=== PATIENT | male | born 1930 | race Caucasian/White ===

== ENCOUNTER → 2016-12-30 | Outpatient (CLI) | payer MEDICARE, OTHER ==
[2016-12-30 10:27] LABS: ABSOLUTE EOSINOPHILS # (AUTO) 0.3 10^3/uL (0.0-0.6); ABSOLUTE LYMPHOCYTES (AUTO) 1.7 10^3/uL (0.5-4.7); ABSOLUTE MONOCYTES (AUTO) 0.6 10^3/uL (0.1-1.4); ABSOLUTE NEUT (AUTO) 6.4 10^3/uL (1.7-8.2); BASOPHILS % (AUTO) 0.5 % (0-2); EOSINOPHILS % (AUTO) 3.4 % (0-6); HEMATOCRIT 38.7 % (37.9-51.0); HEMOGLOBIN 12.8 g/dL (13.5-17.0); HGB HCT DIFFERENCE -0.3; LYMPHOCYTES % (AUTO) 19.2 % (13-45); MEAN CORPUSCULAR HEMOGLOBIN 31.3 pg (27.0-33.4); MEAN CORPUSCULAR HGB CONC 33.1 g/dL (32.0-36.0); MEAN CORPUSCULAR VOLUME 95 fl (80-97); RED BLOOD COUNT 4.09 10^6/uL (4.35-5.55); RED CELL DISTRIBUTION WIDTH 14.8 % (11.5-14.0); SEGMENTED NEUTROPHILS % (AUTO) 69.9 % (42-78); WHITE BLOOD COUNT 9.1 10^3/uL (4.0-10.5)
[2016-12-30 10:50] LABS: ALANINE AMINOTRANSFERASE 37 U/L (21-72); ALBUMIN 4.3 g/dL (3.5-5.0); ALKALINE PHOSPHATASE 55 U/L (38-126); ANION GAP 13 (5-19); ASPARTATE AMINO TRANSFERASE 28 U/L (17-59); BILIRUBIN,DIRECT 0.4 mg/dL (0.0-0.4); BILIRUBIN,TOTAL 0.5 mg/dL (0.2-1.3); BLOOD UREA NITROGEN 33 mg/dL (7-20); CALCIUM 10.2 mg/dL (8.4-10.2); CARBON DIOXIDE 29 mmol/L (22-30); CHLORIDE 100 mmol/L (98-107); CHOLESTEROL 129.44 mg/dL (0-200); CREATININE RESULT 1.38 mg/dL (0.52-1.25); Direct HDL 28 mg/dL (>40); GLUCOSE 109 mg/dL (75-110); POTASSIUM 4.4 mmol/L (3.6-5.0); SODIUM 142.3 mmol/L (137-145); TOTAL PROTEIN 6.7 g/dL (6.3-8.2); TRIGLYCERIDES 133 mg/dL (<150)
[2016-12-30 11:01] LABS: DIRECT LDL 81 mg/dL (<100)
== END ==
LOC: OD 09:02
PROVIDERS: ATTEND Internal Medicine
DX: I10 Essential (primary) hypertension (principal); E78.5 Hyperlipidemia, unspecified; K21.9 Gastro-esophageal reflux disease without esophagitis; M19.90 Unspecified osteoarthritis, unspecified site
CPT/HCPCS: 36415; 80053; 80061; 84443; 85025

== ENCOUNTER → 2017-05-28 | Outpatient (CLI) | payer MEDICARE, OTHER ==
--- NOTE | 2017-05-28 16:11 | RADIOLOGY REPORT (SQ) ---
EXAM DESCRIPTION: CT CHEST WITHOUT COMPLETED DATE/TIME: 05/28/2017 1:21 pm REASON FOR STUDY: COUGH R05 COUGH COMPARISON: 10/24/2012 TECHNIQUE: CT scan performed of the chest without intravenous contrast. Images reviewed with lung, soft tissue and bone windows. Reconstructed coronal and sagittal MPR images reviewed. All images st ored on PACS. All CT scanners at this facility use dose modulation, iterative reconstruction, and/or weight based d osing when appropriate to reduce radiation dose to as low as reasonably achievable (ALARA). [facility]: Dose Right [facility]: CareDose [facility]: Dose Right [facility]: Teradose 4D [facility]: Smart EverPresent RADIATION DOSE: CT Rad equipment meets quality standard of care and radiation dose reduction techniq ues were employed. CTDIvol: 16.0 mGy. DLP: 600 mGy-cm. mGy. LIMITATIONS: No technical limitations. FINDINGS: LUNGS AND PLEURA: Scarring associated with old left thoracotomy. Subsegmental honeycombin g in the middle lobe. No effusions. HILAR AND MEDIASTINAL STRUCTURES: No identified masses or abnormal nodes. No obvious aneurysm. HEART AND VASCULAR STRUCTURES: No aneurysm. No pericardial effusion. UPPER ABDOMEN: No significant findings. Limited exam. THYROID AND OTHER SOFT TISSUES: No masses. No adenopathy. BONES: No significant finding. HARDWARE: None in the chest. OTHER: No other significant findings. IMPRESSION: No acute findings in the chest. TECHNICAL DOCUMENTATION: JOB ID: [id number] Quality ID # [id number]: Final reports with documentation of one or more dose reduction techniques (e.g., Au tomated exposure control, adjustment of the mA and/or kV according to patient size, use of iterative reconstruction technique) 2010 [employer]- All Rights Reserved
== END ==
LOC: RAD 13:00
PROVIDERS: ATTEND Internal Medicine Pulmonary Disease
DX: R05 Cough (principal)
CPT/HCPCS: 71250

== ENCOUNTER → 2017-07-25 | Outpatient (CLI) | payer MEDICARE, OTHER ==
[2017-07-25 12:59] LABS: ABSOLUTE BASOPHILS # (AUTO) 0.1 10^3/uL (0.0-0.2); ABSOLUTE EOSINOPHILS # (AUTO) 0.3 10^3/uL (0.0-0.6); ABSOLUTE LYMPHOCYTES (AUTO) 1.2 10^3/uL (0.5-4.7); ABSOLUTE MONOCYTES (AUTO) 0.7 10^3/uL (0.1-1.4); ABSOLUTE NEUT (AUTO) 8.9 10^3/uL (1.7-8.2); ALANINE AMINOTRANSFERASE 30 U/L (21-72); ALKALINE PHOSPHATASE 54 U/L (38-126); ANION GAP 17 (5-19); ASPARTATE AMINO TRANSFERASE 18 U/L (17-59); BASOPHILS % (AUTO) 0.8 % (0-2); BILIRUBIN,DIRECT 0.3 mg/dL (0.0-0.4); BILIRUBIN,TOTAL 0.5 mg/dL (0.2-1.3); BLOOD UREA NITROGEN 26 mg/dL (7-20); CALCIUM 10.4 mg/dL (8.4-10.2); CARBON DIOXIDE 26 mmol/L (22-30); CHLORIDE 100 mmol/L (98-107); CHOLESTEROL 123.77 mg/dL (0-200); GLUCOSE 117 mg/dL (75-110); HEMATOCRIT 35.8 % (37.9-51.0); HEMOGLOBIN 11.9 g/dL (13.5-17.0); LYMPHOCYTES % (AUTO) 10.5 % (13-45); MEAN CORPUSCULAR HEMOGLOBIN 30.4 pg (27.0-33.4); MEAN CORPUSCULAR HGB CONC 33.2 g/dL (32.0-36.0); MEAN CORPUSCULAR VOLUME 91 fl (80-97); MONOCYTES % (AUTO) 6.4 % (3-13); PLATELET COUNT 235 10^3/uL (150-450); POTASSIUM 4.4 mmol/L (3.6-5.0); RED BLOOD COUNT 3.91 10^6/uL (4.35-5.55); RED CELL DISTRIBUTION WIDTH 14.5 % (11.5-14.0); SEGMENTED NEUTROPHILS % (AUTO) 79.3 % (42-78); SODIUM 142.5 mmol/L (137-145); TOTAL CELLS COUNTED % (AUTO) 100 %; TOTAL PROTEIN 6.3 g/dL (6.3-8.2); TRIGLYCERIDES 97 mg/dL (<150); URIC ACID 9.3 mg/dL (3.5-8.5); WHITE BLOOD COUNT 11.2 10^3/uL (4.0-10.5)
[2017-07-25 13:03] LABS: DIRECT LDL 77 mg/dL (<100)
--- NOTE | 2017-07-25 13:39 | RADIOLOGY REPORT (SQ) ---
EXAM DESCRIPTION: CHEST PA/LATERAL COMPLETED DATE/TIME: 07/25/2017 12:30 pm REASON FOR STUDY: COUGH COMPARISON: CT chest dated 05/28/2017. Chest x-ray dated 07/06/2017. EXAM PARAMETERS: NUMBER OF VIEWS: two views TECHNIQUE: Digital Frontal and Lateral radiographic views of the chest acquired. RADIATION DOSE: NA LIMITATIONS: none FINDINGS: LUNGS AND PLEURA: Chronic interstitial changes. No focal infiltrates, masses or pneumotho rax. No pleural effusion. MEDIASTINUM AND HILAR STRUCTURES: No masses or contour abnormalities. HEART AND VASCULAR STRUCTURES: Heart normal size. No evidence for failure. BONES: No acute findings. Degenerative changes in the spine. HARDWARE: None in the chest. OTHER: No other significant finding. IMPRESSION: NO ACUTE RADIOGRAPHIC FINDING IN THE CHEST. TECHNICAL DOCUMENTATION: JOB ID: [id number] [employer]- All Rights Reserved Reading location - IP/workstation name: [email or web address]
[2017-07-26 14:41] LABS: ANTICHROMATIN AB <0.2 AI (0.0-0.9); CENTROMERE B AB 7.1 AI (0.0-0.9); JO-1 ANTIBODY (ANACOMP) <0.2 AI (0.0-0.9); RNP AB <0.2 AI (0.0-0.9); SCLERODERMA-70 ANTIBODIES <0.2 AI (0.0-0.9); SJOGREN'S ANTI-SS-B AB <0.2 AI (0.0-0.9); SJOGREN'S SS-A ANTIBODY <0.2 AI (0.0-0.9); SMITH AB ANA <0.2 AI (0.0-0.9)
[2017-07-26 15:03] LABS: DNA DOUBLE STRAND ANTIBODY ANA <1 IU/mL (0-9)
[2017-07-26 16:40] LABS: CYTOPLASMIC (C-ANCA) <1:20 titer (Neg:<1:20)
[2017-07-27 08:15] LABS: ATYPICAL PANCA <1:20 titer (Neg:<1:20); PERINUCLEAR (P-ANCA) <1:20 titer (Neg:<1:20)
== END ==
LOC: OD 11:56
PROVIDERS: ATTEND Physician Assistant
DX: I12.9 Hypertensive chronic kidney disease with stage 1 through stage 4 chronic kidney disease, or unspecified chronic kidney disease (principal); R06.00 Dyspnea, unspecified; R60.9 Edema, unspecified; E78.5 Hyperlipidemia, unspecified; N18.9 Chronic kidney disease, unspecified; M10.9 Gout, unspecified; R05 Cough
CPT/HCPCS: 36415; 71046; 80053; 80061; 83735; 84443; 84550; 85025; 86021; 86225; 86235; 86430

== ENCOUNTER → 2017-08-16 | Outpatient (CLI) | payer MEDICARE, OTHER ==
--- NOTE | 2017-08-16 11:32 | ST Modified Barium Swallow ---
Recommendation - Recommendations Recommendations: No oral or pharyngeal deficits noted. Signs of retrograde movement of bolus in upper esophagus, patient did not indicate globus sensation. May benefit from consult with civil celebrant. Medical Diagnoses - Medical Diagnoses Medical Diagnosis Description & ICD-10 Code(s): R13.10 dysphagia, R05 cough Other Medical Diagnoses/Co-Morbidities: Patient reports COPD, arthritis, HTN ST Modified Barium Swallow - General Date: 08/16/17 Referring Physician: JOSEPH Fernando Reason for Referral: cough - History History obtained from: Patient -: Medical - Patient reports no recent pneumonia or changes in swallowing. Does say that he was having increased coughing, but that this has gone away with new inhaler (unable to name specifically). Medications: Patient unable to name specifically, but stated he takes blood pressure and cholesterol medications, pain pill, and breathing treatments. Allergies: none reported - Functional Status Prior Functional Status: INDEPENDENT: feeding - independent Current Functional Limitations: feeding - independent - Subjective Patient/caregiver goal(s): r/o aspiration Cognitive-Linguistic Function: WNL Speech Intelligibility: WNL Current Nutritional Means: PO Current PO diet: Regular Current symptoms: Coughing Pain: Patient reports, 0/5 - Objective Assessment: Upright, Left Lateral - Food Trials Used Food trials used: Thin liquids, Pureed, Regular The patient: Was Able to Self Feed - Oral-Motor Skills Dentition: Dentures-Upper, Dentures-Lower - Assessment Oral prep: Normal Labial closure: Adequate Leakage: None Mastication: Adequate Lingual Movement: Normal Oral stage: Normal for this Procedure - Pharyngeal Stage Initiation of Pharyngeal Stage Reflex: Normal Decreased laryngeal elevation: No Reduced Velopharyngeal Closure: no Reduced pressure generation: No reduced tongue-based retraction: No Pre-swallow pooling in valleculae: None Pre-Swallow pooling in pyriforms: None Reduced Thyro-Hyoid approximation: No Reduced epiglottic excursion: No Reduced pharyngeal peristalsis/contraction: No Post-swallow residulas vallecular: None Post-Swallow residuals in pyriforms: None - Esophageal Stage Esophageal Stage: Retrograde movement of bolus in upper esophagus (approximately C6-7) with solid textures consistently. - Fall Risk Assessment Medications/Conditions that increase fall risks include: Antidepressants, sedatives, anti-arrhythmic, diuretic, benzodiazipenes, neuroleptics. BP regulation problems, cardiac problems, balance or gait deficits, neurological problems. Fall Risk Actions Taken: No action needed - Behavioral Observations During evaluation process patient: was pleasant, was cooperative, able to answer questions - Treatment / Educational Needs: Treatment/Education Needs: Treatment consisted of patient education on the role of the Speech Pathologist. Patient's plan of care and golas were communicated as well as scheduling and attendance policies. Recommendations for initial home program were shared. Patient demonstrated understanding and verbalized agreement. - Impression/Summary Laryngeal Penetration: No Tracheal Aspiration: no Patient presents with: Normal swallow at eval Risk of Aspiration: Minimal Risk of nutritional compromise: WNL Evaluation and Findings: No deficits seen in oral or pharyngeal phase of the swallow. Signs of possible esophageal involvement, may benefit from civil celebrant consult. - Recommendations Solid diet recommendations: Regular Liquid Diet Modification: Thin Pt/Family education and followup with MD: Yes Dysphagia therapy with SHAKE BACKBOARD NOTCHER: no Recommended techniques: Fully Upright During Meal Information, Precautions and Recommendations: Patient (Written), Patient (Verbal ) - Time Total Time: 20 - Plan of Care Patient to follow-up with referring physician: Yes Strategies to optimize patient understanding include:: ongoing assessment of educational needs, implementation of educational strategies, and re-education. - - -: Thank you for the opportunity to work with this patient and his/her family. Should you have any questions about this patient's plan or progress, I can be reached at [phone]. Charge G Code? - - -: Yes ST F.L. Impairment Category - Rationale Based On Rationale Based On: Func. Asses. Tool Results - Swallowing Current G8996: CH 0% Impaired Goal G8997: CH 0% Impaired Discharge G8998: CH 0% Impaired
--- NOTE | 2017-08-16 13:08 | RADIOLOGY REPORT (SQ) ---
EXAM DESCRIPTION: COOKIE SWALLOW COMPLETED DATE/TIME: 08/16/2017 8:37 am REASON FOR STUDY: DYSPHAGIA R13.10 DYSPHAGIA, UNSPECIFIED, food in pharynx causing other injury, se quela T1 7.228 S R05 COUGH COMPARISON: None. TECHNIQUE: Videofluoroscopic swallowing examination was performed in conjunction with speech patholo gy. Videofluoroscopic imaging was obtained and reviewed and these are the findings: RADIATION DOSE: Total fluoroscopy time: 1 minutes 50 seconds 1 fluoroscopy image saved to PACS. LIMITATIONS: None FINDINGS: The patient was brought into the fluoro room and placed upright on a modified barium swall ow chair. The patient was then given multiple consistencies mixed with barium to swallow under live fluoroscopic video guidance. According to the Speech Pathologist there was no laryngeal penetration and no tracheal aspiration. Normal oral and pharyngeal transit time was observed. No significant po st swallow residual was seen. Please see speech pathology report for further details and recommendat ions. IMPRESSION: NO EVIDENCE OF LARYNGEAL PENETRATION OR TRACHEAL ASPIRATION.PLEASE SEE SPEECH PATHOLOGIS T REPORT FOR OTHER FINDINGS AND RECOMMENDATIONS. COMMENT: Quality ID 145: Final reports for procedures using fluoroscopy that document radiation exp osure indices, or exposure time and number of fluorographic images (if radiation exposure indices are not available) TECHNICAL DOCUMENTATION: JOB ID: [id number] [employer]- All Rights Reserved Reading location - IP/workstation name: [email or web address]
== END ==
LOC: RAD 07:57
PROVIDERS: ATTEND Physician Assistant
DX: R13.10 Dysphagia, unspecified (principal); R05 Cough; J44.9 Chronic obstructive pulmonary disease, unspecified; I10 Essential (primary) hypertension
CPT/HCPCS: 74230; 92611; G8996; G8997; G8998

== ENCOUNTER → 2017-11-12 | Outpatient (CLI) | payer MEDICARE, OTHER ==
[2017-11-12 12:06] LABS: ANION GAP 15 (5-19); BLOOD UREA NITROGEN 92 mg/dL (7-20); CARBON DIOXIDE 33 mmol/L (22-30); CHLORIDE 91 mmol/L (98-107); POTASSIUM 3.5 mmol/L (3.6-5.0); SODIUM 138.7 mmol/L (137-145)
== END ==
LOC: OD 10:58
PROVIDERS: ATTEND Internal Medicine
DX: I12.9 Hypertensive chronic kidney disease with stage 1 through stage 4 chronic kidney disease, or unspecified chronic kidney disease (principal); N18.3 Chronic kidney disease, stage 3 (moderate)
CPT/HCPCS: 36415; 80051; 82565; 84520

== ENCOUNTER → 2017-12-13 | Outpatient (CLI) | payer MEDICARE, OTHER ==
[2017-12-13 11:30] LABS: ANION GAP 16 (5-19); BLOOD UREA NITROGEN 64 mg/dL (7-20); CARBON DIOXIDE 30 mmol/L (22-30); CHLORIDE 96 mmol/L (98-107); POTASSIUM 3.9 mmol/L (3.6-5.0); SODIUM 141.8 mmol/L (137-145)
== END ==
LOC: OD 10:33
PROVIDERS: ATTEND Internal Medicine
DX: N18.2 Chronic kidney disease, stage 2 (mild) (principal); R60.9 Edema, unspecified
CPT/HCPCS: 36415; 80051; 82565; 83735; 84520

== ENCOUNTER → 2018-02-16 | Outpatient (CLI) | payer MEDICARE, OTHER ==
[2018-02-16 11:20] LABS: APPEARANCE,URINE CLEAR; BILIRUBIN,URINE NEGATIVE (NEGATIVE); COLOR,URINE YELLOW; GLUCOSE, URINE NEGATIVE (NEGATIVE); KETONES,URINE NEGATIVE (NEGATIVE); LEUKOCYTE ESTERASE,URINE NEGATIVE (NEGATIVE); NITRITE,URINE NEGATIVE (NEGATIVE); PROTEIN,URINE NEGATIVE (NEGATIVE); URINE SPECIFIC GRAVITY 1.013; UROBILINOGEN,URINE NEGATIVE mg/dL (<2.0)
[2018-02-16 11:30] LABS: ABSOLUTE BASOPHILS # (AUTO) 0.1 10^3/uL (0.0-0.2); ABSOLUTE EOSINOPHILS # (AUTO) 0.4 10^3/uL (0.0-0.6); ABSOLUTE LYMPHOCYTES (AUTO) 1.8 10^3/uL (0.5-4.7); ABSOLUTE MONOCYTES (AUTO) 0.8 10^3/uL (0.1-1.4); ABSOLUTE NEUT (AUTO) 8.7 10^3/uL (1.7-8.2); BASOPHILS % (AUTO) 0.6 % (0-2); EOSINOPHILS % (AUTO) 3.4 % (0-6); HEMATOCRIT 36.1 % (37.9-51.0); HEMOGLOBIN 12.1 g/dL (13.5-17.0); LYMPHOCYTES % (AUTO) 15.4 % (13-45); MEAN CORPUSCULAR HEMOGLOBIN 31.4 pg (27.0-33.4); MEAN CORPUSCULAR HGB CONC 33.4 g/dL (32.0-36.0); MEAN CORPUSCULAR VOLUME 94 fl (80-97); MONOCYTES % (AUTO) 6.5 % (3-13); PLATELET COUNT 230 10^3/uL (150-450); RED BLOOD COUNT 3.84 10^6/uL (4.35-5.55); RED CELL DISTRIBUTION WIDTH 14.1 % (11.5-14.0); SEGMENTED NEUTROPHILS % (AUTO) 74.1 % (42-78); TOTAL CELLS COUNTED % (AUTO) 100 %; WHITE BLOOD COUNT 11.8 10^3/uL (4.0-10.5)
[2018-02-16 12:07] LABS: ALANINE AMINOTRANSFERASE 26 U/L (21-72); ALBUMIN 4.1 g/dL (3.5-5.0); ALKALINE PHOSPHATASE 52 U/L (38-126); ANION GAP 13 (5-19); ASPARTATE AMINO TRANSFERASE 24 U/L (17-59); BILIRUBIN,DIRECT 0.6 mg/dL (0.0-0.4); BILIRUBIN,TOTAL 0.6 mg/dL (0.2-1.3); BLOOD UREA NITROGEN 45 mg/dL (7-20); CALCIUM 9.9 mg/dL (8.4-10.2); CARBON DIOXIDE 31 mmol/L (22-30); CHLORIDE 94 mmol/L (98-107); GLUCOSE 133 mg/dL (75-110); POTASSIUM 4.2 mmol/L (3.6-5.0); SODIUM 137.8 mmol/L (137-145); TOTAL PROTEIN 6.7 g/dL (6.3-8.2)
== END ==
LOC: OD 09:36
PROVIDERS: ATTEND Internal Medicine Nephrology
DX: I13.0 Hypertensive heart and chronic kidney disease with heart failure and stage 1 through stage 4 chronic kidney disease, or unspecified chronic kidney disease (principal); N18.3 Chronic kidney disease, stage 3 (moderate); I50.9 Heart failure, unspecified
CPT/HCPCS: 36415; 80053; 81001; 83735; 84443; 85025

== ENCOUNTER → 2018-07-16 | Outpatient (CLI) | payer MEDICARE, OTHER ==
[2018-07-16 10:32] LABS: HEMATOCRIT 35.2 % (37.9-51.0); HEMOGLOBIN 11.9 g/dL (13.5-17.0); MEAN CORPUSCULAR HEMOGLOBIN 31.6 pg (27.0-33.4); MEAN CORPUSCULAR HGB CONC 33.9 g/dL (32.0-36.0); MEAN CORPUSCULAR VOLUME 93 fl (80-97); PLATELET COUNT 207 10^3/uL (150-450); RED BLOOD COUNT 3.78 10^6/uL (4.35-5.55); RED CELL DISTRIBUTION WIDTH 14.9 % (11.5-14.0); WHITE BLOOD COUNT 7.9 10^3/uL (4.0-10.5)
[2018-07-16 11:13] LABS: ANION GAP 11 (5-19); BLOOD UREA NITROGEN 38 mg/dL (7-20); CALCIUM 10.4 mg/dL (8.4-10.2); CARBON DIOXIDE 32 mmol/L (22-30); CHLORIDE 100 mmol/L (98-107); GLUCOSE 134 mg/dL (75-110); POTASSIUM 4.8 mmol/L (3.6-5.0); SODIUM 143.3 mmol/L (137-145)
== END ==
LOC: OD 10:06
PROVIDERS: ATTEND Internal Medicine Nephrology
DX: I13.0 Hypertensive heart and chronic kidney disease with heart failure and stage 1 through stage 4 chronic kidney disease, or unspecified chronic kidney disease (principal); N18.3 Chronic kidney disease, stage 3 (moderate); I50.9 Heart failure, unspecified; E83.42 Hypomagnesemia
CPT/HCPCS: 36415; 80048; 83735; 85027

== ENCOUNTER 2018-10-10 12:35 | Inpatient (IN) | payer MEDICARE, OTHER ==
[2018-10-10 13:22] LABS: HEMOGLOBIN 12.3 g/dL (13.5-17.0); MEAN CORPUSCULAR HEMOGLOBIN 30.6 pg (27.0-33.4); MEAN CORPUSCULAR HGB CONC 33.2 g/dL (32.0-36.0); MEAN CORPUSCULAR VOLUME 92 fl (80-97); PLATELET COUNT 182 10^3/uL (150-450); RED BLOOD COUNT 4.02 10^6/uL (4.35-5.55); RED CELL DISTRIBUTION WIDTH 14.8 % (11.5-14.0)
[2018-10-10 13:24] LABS: INTERNATIONAL RATION (INR) 0.98; PROTHROMBIN TIME 13.5 SEC (11.4-15.4)
[2018-10-10 13:27] LABS: VENOUS BLOOD BASE EXCESS 0.1 mmol/L; VENOUS BLOOD HCO3 24.2 mmol/L (20-32); VENOUS BLOOD PH 7.42 (7.30-7.42)
[2018-10-10 13:41] LABS: ABSOLUTE LYMPHOCYTES# (MANUAL) 0.1 10^3/uL (0.5-4.7); ABSOLUTE MONOCYTES # (MANUAL) 0.7 10^3/uL (0.1-1.4); ABSOLUTE NEUTROPHILS# (MANUAL) 11.2 10^3/uL (1.7-8.2); BASOPHILS % (MANUAL) 0 % (0-2); EOSINOPHILS % (MANUAL) 0 % (0-6); LYMPHOCYTES % (MANUAL) 1 % (13-45); MONOCYTES % (MANUAL) 6 % (3-13); SEGMENTED NEUTROPHILS % (MAN) 93 % (42-78); TOTAL CELLS COUNTED 100
[2018-10-10 13:42] LABS: OVALOCYTES SLIGHT; PLATELET CLUMPS PRESENT; PLATELET COMMENT ADEQUATE; POIKILOCYTOSIS SLIGHT; POLYCHROMASIA SLIGHT; TOXIC GRANULATION SLIGHT
[2018-10-10 13:44] LABS: ALANINE AMINOTRANSFERASE 34 U/L (21-72); ALBUMIN 3.8 g/dL (3.5-5.0); ALKALINE PHOSPHATASE 85 U/L (38-126); ASPARTATE AMINO TRANSFERASE 47 U/L (17-59); BILIRUBIN,DIRECT 0.9 mg/dL (0.0-0.4); BILIRUBIN,TOTAL 1.2 mg/dL (0.2-1.3); BLOOD UREA NITROGEN 41 mg/dL (7-20); CALCIUM 10.4 mg/dL (8.4-10.2); CARBON DIOXIDE 22 mmol/L (22-30); CHLORIDE 94 mmol/L (98-107); GLUCOSE 171 mg/dL (75-110); TOTAL PROTEIN 6.4 g/dL (6.3-8.2)
[2018-10-10 13:45] LABS: ANION GAP 21 (5-19)
[2018-10-10 13:46] LABS: POTASSIUM 2.6 mmol/L (3.6-5.0)
[2018-10-10 13:57] LABS: APPEARANCE,URINE TURBID; BILIRUBIN,URINE NEGATIVE (NEGATIVE); COLOR,URINE AMBER; GLUCOSE, URINE NEGATIVE (NEGATIVE); KETONES,URINE TRACE mg/dL (NEGATIVE); LEUKOCYTE ESTERASE,URINE LARGE (NEGATIVE); NITRITE,URINE POSITIVE (NEGATIVE); PROTEIN,URINE 100 mg/dL (NEGATIVE); URINE SPECIFIC GRAVITY 1.012; UROBILINOGEN,URINE NEGATIVE mg/dL (<2.0)
--- NOTE | 2018-10-10 14:09 | ER Document Report ---
ED General - General Chief Complaint: Fever Stated Complaint: FEVER Time Seen by Provider: 10/10/18 14:05 Mode of Arrival: Medic Information source: Patient, Relative - Spouse Notes: Patient presents to the emergency department via EMS with complaints of fever for the past 3 days, falling days ago. Patient and report patient's temperature was 104 this morning. She gave him 2Tylenol. Upon arrival patient is wearing depends with a boxer over it. Nurse reports foul smell when changing him and is not sure when the last time they were changed. Patient and are slightly poor historians. He reports he is being treated for cholesterol and hypertension. Denies other past medical history. Reports he gets around the house using a walker. Denies smoke, reports an occasional beer, denies drugs. Patient denies vomiting diarrhea. Denies coughing. Denies trouble voiding. Patient seems labored breathing. Reports chronic right shoulder pain for the past 10 years. TRAVEL OUTSIDE OF THE [place] IN LAST 30 DAYS: No - HPI Onset: Other Onset/Duration: Persistent Quality of pain: Achy - reports right shoulder achy- chronic pain for 10 years Associated symptoms: Fever Exacerbated by: Denies Relieved by: Denies Similar symptoms previously: No Recently seen / treated by doctor: No - Related Data Allergies/Adverse Reactions: No Known Allergies Allergy (Verified 10/10/18 13:22) Past Medical History - General Information source: Patient - Social History Smoking Status: Former Smoker Cigarette use (# per day): No Frequency of alcohol use: Rare Drug Abuse: None Lives with: Family Family History: Reviewed & Not Pertinent Patient has suicidal ideation: No Patient has homicidal ideation: No - Past Medical History Cardiac Medical History: Reports: Hx Hypercholesterolemia, Hx Hypertension Renal/ Medical History: Denies: Hx Peritoneal Dialysis Traumatic Medical History: Reports: Hx Fractures Past Surgical History: Reports: Hx Orthopedic Surgery - left knee replacement - Immunizations Hx Diphtheria, Pertussis, Tetanus Vaccination: No Hx Pneumococcal Vaccination: 10/22/12 Review of Systems - Review of Systems Notes: Review HPI for review of systems., All other systems negative Physical Exam - Vital signs Vitals: Resp 27 H 10/10/18 12:55 - General General appearance: Alert In distress: None - HEENT Head: Normocephalic, Atraumatic Eyes: Normal Conjunctiva: Normal Extraocular movements intact: Yes Pupils: PERRL Ears: Normal External canal: Normal Tympanic membrane: Normal Nasal: Normal Mouth/Lips: Normal Mucous membranes: Dry Pharynx: Normal Neck: Normal, Supple. No: Lymphadenopathy - Respiratory Respiratory status: No respiratory distress Chest status: Nontender Breath sounds: Decreased air movement Chest palpation: Normal - Cardiovascular Rhythm: Other - Irregular - Abdominal Inspection: Normal Distension: No distension Bowel sounds: Normal Tenderness: Nontender Organomegaly: No organomegaly - Extremities General upper extremity: Normal ROM General lower extremity: Normal ROM - Neurological Neuro grossly intact: Yes Cognition: Normal Orientation: AAOx4 [place] Com[place] Scale Eye Opening: Spontaneous [place] Com[place] Scale Verbal: Oriented Curt Coma Scale Motor: Obeys Commands [place] Com[place] Scale Total: 15 Speech: Normal - Psychological Associated symptoms: Normal affect, Normal mood - Skin Skin Temperature: Warm Skin Moisture: Dry Course - Re-evaluation Re-evalutation: 10/10/18 14:[address] Isaac regarding patient potassium 2.6 labs positive urinary tract infection Wbc 12.2. Patient dehydrated will give fluids, potassium replacement Pepcid and obtain mag level per Dr. Isaac request. Patient is instructed on plan of care with admission they verbalized understanding. Contacted hospitalist for admission report given to Niru Rinaldi Dictation of this chart was performed using voice recognition software; therefore, there may be some unintended grammatical errors. - Vital Signs Vital signs: Temp Pulse Resp BP Pulse Ox 98.4 F 61 17 108/56 L 100 10/10/18 19:59 10/10/18 19:59 10/10/18 19:59 10/10/18 19:59 10/10/18 19:59 - Laboratory Result Diagrams: 10/10/18 12:15 10/10/18 12:15 Laboratory results interpreted by me: 10/10/18 10/10/18 10/10/18 12:15 12:15 13:10 WBC 12.0 H RBC 4.02 L Hgb 12.3 L Hct 37.0 L RDW 14.8 H Seg Neuts % (Manual) 93 H Lymphocytes % (Manual) 1 L Abs Neuts (Manual) 11.2 H Abs Lymphs (Manual) 0.1 L Potassium 2.6 L* Chloride 94 L Anion Gap 21 H BUN 41 H Est GFR (Non-Af Amer) 55 L Glucose 171 H Calcium 10.4 H Direct Bilirubin 0.9 H Urine Protein 100 H Urine Ketones TRACE H Urine Blood MODERATE H Urine Nitrite POSITIVE H Ur Leukocyte Esterase LARGE H Discharge - Discharge Clinical Impression: Hypokalemia Fever Qualifiers: Fever type: unspecified Qualified Code(s): R50.9 - Fever, unspecified UTI (urinary tract infection) Qualifiers: Urinary tract infection type: site unspecified Hematuria presence: with hematuria Qualified Code(s): N39.0 - Urinary tract infection, site not specified Condition: Stable Disposition: ADMITTED INPATIENT Admitting Provider: Gentry (hospitalist) Unit Admitted: Telemetry
[2018-10-10] MEDS ORDERED: NORMAL SALINE 1000 ML 1,000 ML IV ONE ×2 (14:19→16:26)
[2018-10-10] MEDS ORDERED: FAMOTIDINE INJ/PF 20 MG/2 ML SDV IV ONE (14:20)
[2018-10-10] MEDS ORDERED: CEFTRIAXONE 1 GM/D5W RTU 1 GM/50 ML RTUPB IV ONE (14:20)
--- NOTE | 2018-10-10 15:17 | RADIOLOGY REPORT (SQ) ---
EXAM DESCRIPTION: CHEST SINGLE VIEW COMPLETED DATE/TIME: 10/10/2018 3:06 pm REASON FOR STUDY: fever COMPARISON: 07/06/2015 EXAM PARAMETERS: NUMBER OF VIEWS: One view. TECHNIQUE: Single frontal radiographic view of the chest acquired. RADIATION DOSE: NA LIMITATIONS: None. FINDINGS: LUNGS AND PLEURA: No opacities, masses or pneumothorax. No pleural effusion. MEDIASTINUM AND HILAR STRUCTURES: No masses. Contour normal. HEART AND VASCULAR STRUCTURES: Cardiomegaly BONES: No acute findings. HARDWARE: None in the chest. OTHER: No other significant finding. IMPRESSION: Cardiomegaly without acute abnormality of the lungs. No focal airspace opacity. TECHNICAL DOCUMENTATION: JOB ID: [id number] [employer]- All Rights Reserved Reading location - IP/workstation name: [email or web address]
[2018-10-10] MEDS: POTASSI CL 20 MEQ/50 ML RIDER 20 MEQ/50 ML RTUPB IV SCH ×2 (15:36→17:34)
[2018-10-10] MEDS ORDERED: PROMETHAZINE HCL INJ 25 MG/1 ML VIAL IV PRN (15:37)
[2018-10-10] MEDS ORDERED: ACETAMINOPHEN 325 MG TABLET PO PRN (15:37)
[2018-10-10] MEDS ORDERED: ONDANSETRON HCL INJ/PF 4 MG/2 ML SDV IV PRN (15:37)
[2018-10-10] MEDS ORDERED: MAG HYDROX/AL HYDROX/SIMETH SUSP 30 ML UDCUP PO PRN (15:37)
[2018-10-10] MEDS ORDERED: IPRATROPIUM/ALBUTEROL 0.5-2.5 MG/3 ML AMPUL NEB PRN (15:37)
[2018-10-10] MEDS ORDERED: MAGNESIUM HYDROXIDE SUSP 30 ML UDCUP PO PRN (15:37)
[2018-10-10] MEDS ORDERED: DEXTROSE 50%-WATER 25 GM/50 ML DISP.SYRIN IV PRN ×2 (16:38)
[2018-10-10] MEDS ORDERED: DEXTROSE 40% GEL 15 GM TUBE PO PRN ×2 (16:38)
[2018-10-10] MEDS ORDERED: GLUCAGON,HUMAN RECOMB 1 MG INJ IM PRN (16:38)
--- NOTE | 2018-10-10 16:41 | PDOC H&P ---
History of Present Illness Admission Date/PCP: 10/10/18 14:53 RANDA AGUIRRE MD Patient complains of: fever History of Present Illness: JEFFREY GORDILLO is a 88 year old male with limited past medical history due to patient being poor historians but known from [facility] records to have hypertension, hyperlipidemia, probable COPD and remote atrial fibrillation when admitted for pneumonia (2012) who presented to the emergency department today with complaint of 3 days of fever, weakness, and falls. He is otherwise unable to identify specific symptoms; denies dyspnea, cough, abdominal pain, nausea, vomiting, diarrhea, urinary urgency, frequency and dysuria. Evaluation in the emergency department demonstrates atrial fibrillation with chest x-ray negative for acute findings, UTI, leukocytosis (12) hypokalemia (2.6), dehydration (creatinine 1.25, BUN 41) and indeterminately elevated troponin of 0.050. He is provided IV fluids and empirically placed on Rocephin. He is referred to the hospitalist service for admission and management of the above-stated complaints and findings. Past Medical History Cardiac Medical History: Reports: Atrial Fibrillation, Congestive Heart Failure, Hyperlipidema, Hypertension Pulmonary Medical History: Reports: Chronic Obstructive Pulmonary Disease (COPD) EENT Medical History: Reports: None Neurological Medical History: Reports: None Endocrine Medical History: Reports: Obesity Renal/ Medical History: Reports: None Malignancy Medical History: Reports: None GI Medical History: Reports: None Musculoskeltal Medical History: Reports: None Skin Medical History: Reports: None Psychiatric Medical History: Reports: None Traumatic Medical History: Reports: None Hematology: Reports: None Infectious Medical History: Reports: None Past Surgical History Past Surgical History: Reports: Orthopedic Surgery - left knee replacement, Other - VATS 2012 Social History Information Source: Patient, Relative, [facility] Records Lives with: Family Smoking Status: Former Smoker Frequency of Alcohol Use: Social Hx Recreational Drug Use: No Drugs: None Hx Prescription Drug Abuse: No - Advance Directive Resuscitation Status: Full Code Family History Family History: Reviewed & Not Pertinent Parental Family History Reviewed: Yes Children Family History Reviewed: Yes Sibling(s) Family History Reviewed.: Yes Medication/Allergy Home Medications: Aspirin [Aspirin 325 mg Tablet] 325 mg PO DAILY 10/22/12 Atorvastatin Calcium [Lipitor 10 mg Tablet] 10 mg PO QHS 10/22/12 Fenofibrate Nanocrystallized [Tricor 145 mg Tablet] 145 mg PO DAILY 10/22/12 Hydrochlorothiazide 25 mg PO BID 10/22/12 Indomethacin [Indocin 50 mg Capsule] 50 mg PO TID 10/22/12 Lisinopril [Prinivil 10 mg Tablet] 10 mg PO DAILY 10/22/12 Metoprolol Tartrate [Lopressor 50 mg Tablet] 50 mg PO DAILY 10/22/12 Mometasone Furoate [Nasonex] 2 spray NS DAILY 10/22/12 Tamsulosin HCl 0.4 mg PO DAILY 10/22/12 Acetaminophen [Tylenol 325 mg Tablet] 650 mg PO Q4HP PRN #0 tablet 11/08/12 Diltiazem HCl [Cardizem 30 mg Tablet] 30 mg PO Q8 #0 tablet 11/08/12 Docusate Sodium [Colace 100 mg Capsule] 100 mg PO TIDP PRN #0 capsule 11/08/12 Enoxaparin Sodium [Lovenox Inj 40 mg/0.4 ml Disp.syrin] 40 mg SUBCUT QAM #0 disp.syrin 11/08/12 Fluticasone Propionate [Flonase Nasal Burlison 50 Mcg/Burlison 16 gm] 2 spray NASL DAILY #0 spray.pump 11/08/12 Ipratropium/Albuterol Sulfate [Duoneb 3 ml Ampul] 3 ml NEB RTQ4HP PRN #0 vial.neb 11/08/12 Magnesium Oxide [Mag-Ox 400 mg Tablet] 400 mg PO BID #0 tablet 11/08/12 Metoprolol Succinate [Toprol Xl 50 mg Tab.sr] 50 mg PO DAILY #0 tab.sr.24h 11/08/12 Piperacillin Sodium/Tazobactam [Zosyn Inj 4.5 gm Vial] 4.5 gm IV Q6 #0 vial 11/08/12 Potassium Chloride [Klor-Con 10 Meq Capsule ER] 20 meq PO Q12 #0 tablet.sa 11/08/12 Allergies/Adverse Reactions: No Known Allergies Allergy (Verified 10/10/18 13:22) Review of Systems Constitutional: PRESENT: fatigue, fever(s), weakness. ABSENT: chills, headache(s), weight gain, weight loss Eyes: ABSENT: visual disturbances Ears: ABSENT: hearing changes Cardiovascular: ABSENT: chest pain, dyspnea on exertion, edema, orthropnea, palpitations Respiratory: ABSENT: cough, hemoptysis Gastrointestinal: ABSENT: abdominal pain, constipation, diarrhea, hematemesis, hematochezia, nausea, vomiting Genitourinary: ABSENT: dysuria, hematuria Musculoskeletal: ABSENT: joint swelling Integumentary: ABSENT: rash, wounds Neurological: PRESENT: frequent falls. ABSENT: abnormal gait, abnormal speech, confusion, dizziness, focal weakness, syncope Psychiatric: ABSENT: anxiety, depression, homidical ideation, suicidal ideation Endocrine: ABSENT: cold intolerance, heat intolerance, polydipsia, polyuria Hematologic/Lymphatic: ABSENT: easy bleeding, easy bruising Physical Exam Vital Signs: Temp Pulse Resp BP Pulse Ox 98.5 F 22 H 90/61 L 96 10/10/18 13:18 10/10/18 16:01 10/10/18 16:01 10/10/18 16:01 Intake & Output 10/09/18 10/10/18 10/11/18 06:59 06:59 06:59 Intake Total 1050 Balance 1050 Weight 101.5 kg General appearance: PRESENT: disheveled, hard of hearing, mild distress, obese, well-developed, well-nourished Head exam: PRESENT: atraumatic, normocephalic Eye exam: PRESENT: conjunctiva pink, EOMI, PERRLA. ABSENT: scleral icterus Ear exam: PRESENT: normal external ear exam Mouth exam: PRESENT: dry mucosa, tongue midline Neck exam: ABSENT: carotid bruit, JVD, lymphadenopathy, thyromegaly Respiratory exam: PRESENT: clear to auscultation angela, symmetrical, unlabored. ABSENT: rales, rhonchi, wheezes Cardiovascular exam: PRESENT: irregular rhythm, +S1, +S2. ABSENT: diastolic murmur, rubs, systolic murmur Pulses: PRESENT: normal dorsalis pedis pul Vascular exam: PRESENT: normal capillary refill GI/Abdominal exam: PRESENT: normal bowel sounds, soft. ABSENT: distended, guarding, mass, organolmegaly, rebound, tenderness Rectal exam: PRESENT: deferred Extremities exam: PRESENT: full ROM. ABSENT: calf tenderness, clubbing, pedal edema Neurological exam: PRESENT: alert, awake, oriented to person, oriented to place, oriented to time, oriented to situation, CN II-XII grossly intact, other - Forgetful, easily confused. ABSENT: motor sensory deficit Psychiatric exam: PRESENT: appropriate affect, normal mood. ABSENT: homicidal ideation, suicidal ideation Skin exam: PRESENT: dry, intact, warm. ABSENT: cyanosis, rash Results Laboratory Results: 10/10/18 12:15 10/10/18 12:15 10/10/18 10/10/18 10/10/18 12:15 12:15 12:53 WBC 12.0 H RBC 4.02 L Hgb 12.3 L Hct 37.0 L MCV 92 MCH 30.6 MCHC 33.2 RDW 14.8 H Plt Count 182 Seg Neutrophils % Not Reportable Lymphocytes % Not Reportable Monocytes % Not Reportable Eosinophils % Not Reportable Basophils % Not Reportable Absolute Neutrophils Not Reportable Absolute Lymphocytes Not Reportable Absolute Monocytes Not Reportable Absolute Eosinophils Not Reportable Absolute Basophils Not Reportable VBG pH VBG pCO2 VBG HCO3 VBG Base Excess Sodium 137.0 Potassium 2.6 L* Chloride 94 L Carbon Dioxide 22 Anion Gap 21 H BUN 41 H Creatinine 1.25 Est GFR ( Amer) > 60 Est GFR (Non-Af Amer) 55 L Glucose 171 H Lactic Acid 1.5 Calcium 10.4 H Total Bilirubin 1.2 AST 47 ALT 34 Alkaline Phosphatase 85 Total Protein 6.4 Albumin 3.8 Urine Color Urine Appearance Urine pH Ur Specific [place] Urine Protein Urine Glucose (UA) Urine Ketones Urine Blood Urine Nitrite Ur Leukocyte Esterase Urine WBC (Auto) Urine RBC (Auto) 10/10/18 10/10/18 12:53 13:10 WBC RBC Hgb Hct MCV MCH MCHC RDW Plt Count Seg Neutrophils % Lymphocytes % Monocytes % Eosinophils % Basophils % Absolute Neutrophils Absolute Lymphocytes Absolute Monocytes Absolute Eosinophils Absolute Basophils VBG pH 7.42 VBG pCO2 38.0 VBG HCO3 24.2 VBG Base Excess 0.1 Sodium Potassium Chloride Carbon Dioxide Anion Gap BUN Creatinine Est GFR ( Amer) Est GFR (Non-Af Amer) Glucose Lactic Acid Calcium Total Bilirubin AST ALT Alkaline Phosphatase Total Protein Albumin Urine Color YOMI Urine Appearance TURBID Urine pH 5.0 Ur Specific [place] 1.012 Urine Protein 100 H Urine Glucose (UA) NEGATIVE Urine Ketones TRACE H Urine Blood MODERATE H Urine Nitrite POSITIVE H Ur Leukocyte Esterase LARGE H Urine WBC (Auto) >182 Urine RBC (Auto) 72 10/10/18 12:15 Troponin I 0.050 Impressions: Chest X-Ray 10/10/18 14:39 IMPRESSION: Cardiomegaly without acute abnormality of the lungs. No focal airspace opacity. Assessment and Plan - Diagnosis (1) UTI (urinary tract infection) Qualifiers: Urinary tract infection type: site unspecified Hematuria presence: with hematuria Qualified Code(s): N39.0 - Urinary tract infection, site not specified; R31.9 - Hematuria, unspecified Is this a current diagnosis for this admission?: Yes Plan: Urinalysis is positive for UTI. Blood and urine cultures are pending. Patient is admitted to the medical floor and continuous cardiac telemetry. He is provided IV fluids. He is received his first dose of IV Rocephin by the ED provider; we will continue and adjust as cultures result. Tylenol as needed for discomfort or fever. Antiemetics as needed. (2) Dehydration Is this a current diagnosis for this admission?: Yes Plan: Patient is demonstrating evidence of dehydration with atrial fibrillation, hypotension, dry mucous membranes and dry flaky skin, laboratory evaluation showing creatinine of 1.25, BUN of 41, anion gap 21, and hypokalemia. Patient is provided with 1 L normal saline by ED provider. We will provide another 1 L bolus followed by maintenance IV fluids. Daily chemistries. (3) Atrial fibrillation Qualifiers: Atrial fibrillation type: unspecified Qualified Code(s): I48.91 - Unspecified atrial fibrillation Is this a current diagnosis for this admission?: Yes Plan: Remote Hx of afib while admitted 2012 for PNA. EKG and continuous telemetry demonstrates rate controlled a. fib. Will start daily Aspirin therapy. Patient is too high risk for chronic anticoagulation. Will resume home antihypertensive/rhythm medications once verified. Start diltiazem 30 mg p.o. three times daily for now. Address dehydration as above. (4) Hypokalemia Is this a current diagnosis for this admission?: Yes Plan: K 2.6. Magnesium is pending. Patient has been ordered K riders by ED provider. Will monitor daily chemistries and replace as necessary. - Time Time Spent with patient: 35 or more minutes Medications reviewed and adjusted accordingly: Yes Anticipated discharge: Home Within: within 72 hours - Inpatient Certification Based on my medical assessment, after consideration of the patient's comorbidities, presenting symptoms, or acuity I expect that the services needed warrant INPATIENT care.: Yes I certify that my determination is in accordance with my understanding of Medicare's requirements for reasonable and necessary INPATIENT services [42 CFR 412.3e].: Yes Medical Necessity: Failure to Improve With Outpatient Therapy, Need Close Monitoring Due to Risk of Patient Decompensation, Need For IV Fluids, Need for IV Antibiotics, Risk of Diagnosis Which Will Require Inpatient Eval/Care /Monitoring
[2018-10-10] MEDS: NORMAL SALINE 1000 ML 1,000 ML IV PRN (17:35)
--- NOTE | 2018-10-10 17:43 | EKG REPORT ---
SEVERITY:- ABNORMAL ECG - ATRIAL FIBRILLATION, V-RATE 67-140 BORDERLINE PROLONGED QT INTERVAL : Confirmed by: Suman Alvarado 10-Oct-2018 17:42:39
[2018-10-10] MEDS: DILTIAZEM HCL 30 MG TABLET PO SCH (21:36)
[2018-10-10] MEDS: INSULIN LISPRO 100 UNIT/ML 3 ML VIAL SUBCUT SCH (21:37)
[2018-10-10] MEDS: HEPARIN SOD (PORCINE) 5,000 UNIT/ML 1 ML SYRINGE SUBCUT SCH (21:37)
[2018-10-10] MEDS: FAMOTIDINE INJ/PF 20 MG/2 ML SDV IV SCH (21:37)
[2018-10-11] MEDS: NORMAL SALINE 1000 ML 1,000 ML IV PRN ×2 (03:40→17:10)
[2018-10-11] MEDS: HEPARIN SOD (PORCINE) 5,000 UNIT/ML 1 ML SYRINGE SUBCUT SCH ×3 (05:26→21:05)
[2018-10-11] MEDS: DILTIAZEM HCL 30 MG TABLET PO SCH ×3 (05:31→21:04)
[2018-10-11 08:15] LABS: HEMATOCRIT 32.6 % (37.9-51.0); HEMOGLOBIN 10.8 g/dL (13.5-17.0); MEAN CORPUSCULAR HEMOGLOBIN 30.6 pg (27.0-33.4); MEAN CORPUSCULAR HGB CONC 33.1 g/dL (32.0-36.0); MEAN CORPUSCULAR VOLUME 92 fl (80-97); PLATELET COUNT 154 10^3/uL (150-450); RED BLOOD COUNT 3.53 10^6/uL (4.35-5.55); RED CELL DISTRIBUTION WIDTH 14.6 % (11.5-14.0); WHITE BLOOD COUNT 8.3 10^3/uL (4.0-10.5)
[2018-10-11 08:30] LABS: ANION GAP 12 (5-19); BLOOD UREA NITROGEN 38 mg/dL (7-20); CALCIUM 9.3 mg/dL (8.4-10.2); CARBON DIOXIDE 26 mmol/L (22-30); CHLORIDE 102 mmol/L (98-107); GLUCOSE 123 mg/dL (75-110); POTASSIUM 3.3 mmol/L (3.6-5.0); SODIUM 139.6 mmol/L (137-145)
[2018-10-11] MEDS ORDERED: POTASSIUM CHLORIDE 10 MEQ CAPSULE.ER PO ONE (08:49)
[2018-10-11] MEDS: INSULIN LISPRO 100 UNIT/ML 3 ML VIAL SUBCUT SCH ×2 (09:38→11:19)
[2018-10-11] MEDS: DOCUSATE SODIUM 100 MG CAPSULE PO SCH (09:46)
[2018-10-11] MEDS: ASPIRIN 81 MG TABLET, CHEWABLE PO SCH (09:46)
[2018-10-11] MEDS: FAMOTIDINE INJ/PF 20 MG/2 ML SDV IV SCH ×2 (09:46→21:04)
[2018-10-11] MEDS: TAMSULOSIN HCL 0.4 MG CAP.SR.24H PO SCH (09:46)
[2018-10-11] MEDS ORDERED: CEFTRIAXONE 1 GM/D5W RTU 1 GM/50 ML RTUPB IV SCH (10:00)
--- NOTE | 2018-10-11 15:06 | PDOC PROGRESS REPORT ---
Subjective Progress Note for:: 10/11/18 Subjective:: JEFFREY GORDILLO is a 88 year old male with limited past medical history due to patient being poor historians but known from [facility] records to have CHF, hypertension, hyperlipidemia, probable COPD and remote atrial fibrillation who was admitted 10/10/2018 for UTI and dehydration. Patient was seen on afternoon rounds with his and son present. He was found resting in bed comfortably on supplemental oxygen via nasal cannula at 2 L/min; he is not home O2 dependent. He reports that he is feeling much better today; did work with physical therapy this morning. He reported continued fatigue and generalized weakness. Denies fever, chills, chest pain, orthopnea, dyspnea, abdominal pain, nausea vomiting and diarrhea. He asks about anticipated discharge but otherwise has no questions or concerns. No concerns per nursing. Reason For Visit: UTI,WEAKNESS,DEHYDRATION Physical Exam Vital Signs: Temp Pulse Resp BP Pulse Ox 98.3 F 89 20 149/85 H 99 10/11/18 12:00 10/11/18 12:00 10/11/18 12:00 10/11/18 12:00 10/11/18 12:00 Intake & Output 10/10/18 10/11/18 10/12/18 06:59 06:59 06:59 Intake Total 2720 360 Output Total 350 75 Balance 2370 285 Weight 101.5 kg General appearance: PRESENT: no acute distress, obese, well-developed, well- nourished Head exam: PRESENT: atraumatic, normocephalic Eye exam: PRESENT: conjunctiva pink, EOMI, PERRLA. ABSENT: scleral icterus Ear exam: PRESENT: normal external ear exam Mouth exam: PRESENT: moist, tongue midline Neck exam: ABSENT: carotid bruit, JVD, lymphadenopathy, thyromegaly Respiratory exam: PRESENT: clear to auscultation angela, symmetrical, unlabored, wheezes. ABSENT: rales, rhonchi Cardiovascular exam: PRESENT: irregular rhythm. ABSENT: diastolic murmur, rubs, systolic murmur Pulses: PRESENT: normal dorsalis pedis pul Vascular exam: PRESENT: normal capillary refill GI/Abdominal exam: PRESENT: normal bowel sounds, soft. ABSENT: distended, guarding, mass, organolmegaly, rebound, tenderness Rectal exam: PRESENT: deferred Extremities exam: PRESENT: full ROM. ABSENT: calf tenderness, clubbing, pedal edema Musculoskeletal exam: PRESENT: ambulatory - short distances w/ walker Neurological exam: PRESENT: alert, awake, oriented to person, oriented to place, oriented to time, oriented to situation, CN II-XII grossly intact, other - Forgetful. ABSENT: motor sensory deficit Psychiatric exam: PRESENT: appropriate affect, normal mood. ABSENT: homicidal ideation, suicidal ideation Skin exam: PRESENT: dry, intact, warm. ABSENT: cyanosis, rash Results Laboratory Results: 10/11/18 07:41 10/11/18 07:41 10/10/18 10/11/18 10/11/18 19:36 07:41 07:41 WBC 8.3 RBC 3.53 L Hgb 10.8 L Hct 32.6 L MCV 92 MCH 30.6 MCHC 33.1 RDW 14.6 H Plt Count 154 Sodium 139.6 Potassium 3.3 L Chloride 102 Carbon Dioxide 26 Anion Gap 12 BUN 38 H Creatinine 0.97 Est GFR ( Amer) > 60 Est GFR (Non-Af Amer) > 60 Glucose 123 H Calcium 9.3 Magnesium 1.6 10/10/18 10/10/18 10/11/18 12:15 19:36 01:08 Troponin I 0.050 0.072 0.058 Impressions: Chest X-Ray 10/10/18 14:39 IMPRESSION: Cardiomegaly without acute abnormality of the lungs. No focal airspace opacity. Assessment and Plan - Diagnosis (1) UTI (urinary tract infection) Qualifiers: Urinary tract infection type: site unspecified Hematuria presence: with hematuria Qualified Code(s): N39.0 - Urinary tract infection, site not specified; R31.9 - Hematuria, unspecified Is this a current diagnosis for this admission?: Yes Plan: Urinalysis is positive for UTI. Blood cultures are negative at 24 hours. Urine culture shows gram-negative rods. Patient is admitted to the medical floor and continuous cardiac telemetry. He is provided IV fluids. He is received his first dose of IV Rocephin by the ED provider; we will continue and adjust as cultures result. Tylenol as needed for discomfort or fever. Antiemetics as needed. (2) Dehydration Is this a current diagnosis for this admission?: Yes Plan: Improved; creatinine now 0.97 BUN remains elevated at 38. Patient demonstrated evidence of dehydration with atrial fibrillation, hypotension, dry mucous membranes and dry flaky skin, laboratory evaluation showing creatinine of 1.25, BUN of 41, anion gap 21, and hypokalemia. Continue maintenance IV fluids. Daily chemistries. (3) Atrial fibrillation Qualifiers: Atrial fibrillation type: unspecified Qualified Code(s): I48.91 - Unspecified atrial fibrillation Is this a current diagnosis for this admission?: Yes Plan: Remote Hx of afib while admitted 2012 for PNA. EKG and continuous telemetry demonstrates rate controlled a. fib. Continue daily Aspirin therapy. Patient is too high risk for chronic anticoagulation. Will resume home antihypertensive/rhythm medications once verified. Start diltiazem 30 mg p.o. three times daily for now. (4) Hypokalemia Is this a current diagnosis for this admission?: Yes Plan: Improved; K 2.6-> 3.3. Magnesium nml. p.o. Potassium replacement today. Will monitor daily chemistries and replace as necessary. (5) HTN (hypertension) Qualifiers: Hypertension type: essential hypertension Qualified Code(s): I10 - Essential (primary) hypertension Is this a current diagnosis for this admission?: Yes Plan: Home medications have been reconciled; have resumed home dose of metoprolol. Continues on low-dose diltiazem for A. fib rate control. Cardiac diet. Holding diuretics secondary to dehydration. (6) Hyperlipidemia Is this a current diagnosis for this admission?: Yes Plan: Cardiac diet. Continue home dose atorvastatin and fenofibrate. - Time Time Spent with patient: 15-24 minutes Medications reviewed and adjusted accordingly: Yes Anticipated discharge: Home with Homehealth Within: within 48 hours
[2018-10-11] MEDS: CEFTRIAXONE SODIUM 1,000 MG in DEXTROSE 5%-WATER 50 ML IV SCH (17:09)
[2018-10-11] MEDS: ATORVASTATIN CALCIUM 10 MG TABLET PO SCH (21:13)
[2018-10-12 05:24] LABS: HEMATOCRIT 32.8 % (37.9-51.0); HEMOGLOBIN 10.8 g/dL (13.5-17.0); MEAN CORPUSCULAR HEMOGLOBIN 30.3 pg (27.0-33.4); MEAN CORPUSCULAR VOLUME 92 fl (80-97); PLATELET COUNT 166 10^3/uL (150-450); RED BLOOD COUNT 3.57 10^6/uL (4.35-5.55); RED CELL DISTRIBUTION WIDTH 14.4 % (11.5-14.0); WHITE BLOOD COUNT 12.4 10^3/uL (4.0-10.5)
[2018-10-12] MEDS: DILTIAZEM HCL 30 MG TABLET PO SCH ×3 (05:28→21:30)
[2018-10-12] MEDS: HEPARIN SOD (PORCINE) 5,000 UNIT/ML 1 ML SYRINGE SUBCUT SCH ×3 (05:28→21:29)
[2018-10-12 05:41] LABS: ANION GAP 15 (5-19); BLOOD UREA NITROGEN 26 mg/dL (7-20); CALCIUM 9.7 mg/dL (8.4-10.2); CARBON DIOXIDE 24 mmol/L (22-30); CHLORIDE 100 mmol/L (98-107); GLUCOSE 155 mg/dL (75-110); POTASSIUM 3.5 mmol/L (3.6-5.0); SODIUM 138.5 mmol/L (137-145)
[2018-10-12] MEDS: ASPIRIN 81 MG TABLET, CHEWABLE PO SCH (10:51)
[2018-10-12] MEDS: METOPROLOL SUCCINATE 50 MG TAB.SR.24H PO SCH (10:51)
[2018-10-12] MEDS: DOCUSATE SODIUM 100 MG CAPSULE PO SCH (10:51)
[2018-10-12] MEDS: TAMSULOSIN HCL 0.4 MG CAP.SR.24H PO SCH (10:51)
[2018-10-12] MEDS: FENOFIBRATE NANOCRYSTALLIZED 145 MG TABLET PO SCH (10:52)
[2018-10-12] MEDS: FAMOTIDINE INJ/PF 20 MG/2 ML SDV IV SCH ×2 (10:52→21:29)
--- NOTE | 2018-10-12 14:09 | PDOC PROGRESS REPORT ---
Subjective Progress Note for:: 10/12/18 Subjective:: JEFFREY GORDILLO is a 88 year old male with limited past medical history due to patient being poor historians but known from [facility] records to have CHF, hypertension, hyperlipidemia, probable COPD and remote atrial fibrillation who was admitted 10/10/2018 for UTI and dehydration. Patient was seen on morning rounds with his present. He was found resting in bed comfortably on supplemental oxygen via nasal cannula at 2 L/min; he is not home O2 dependent. He was sleeping, but woke easily when I said his name. He reports that he is feeling well today; though with continued fatigue and generalized weakness. He denies fever, chills, chest pain, orthopnea, dyspnea, abdominal pain, nausea vomiting and diarrhea. He politely asks me to leave so that he can "resume the nap." No concerns per nursing. Reason For Visit: UTI,WEAKNESS,DEHYDRATION Physical Exam Vital Signs: Temp Pulse Resp BP Pulse Ox 98.6 F 89 20 123/79 94 10/12/18 08:00 10/12/18 09:34 10/12/18 09:34 10/12/18 08:00 10/12/18 09:34 Intake & Output 10/11/18 10/12/18 10/13/18 06:59 06:59 06:59 Intake Total 2720 2040 Output Total 350 175 Balance 2370 1865 Weight 101.5 kg 101.5 kg General appearance: PRESENT: no acute distress, hard of hearing, obese, well- developed, well-nourished Head exam: PRESENT: atraumatic, normocephalic Eye exam: PRESENT: conjunctiva pink, EOMI, PERRLA. ABSENT: scleral icterus Ear exam: PRESENT: normal external ear exam Mouth exam: PRESENT: moist, tongue midline Neck exam: ABSENT: carotid bruit, JVD, lymphadenopathy, thyromegaly Respiratory exam: PRESENT: clear to auscultation angela, symmetrical, unlabored. ABSENT: rales, rhonchi, wheezes Cardiovascular exam: PRESENT: irregular rhythm, +S1, +S2. ABSENT: diastolic murmur, rubs, systolic murmur Pulses: PRESENT: normal dorsalis pedis pul Vascular exam: PRESENT: normal capillary refill GI/Abdominal exam: PRESENT: normal bowel sounds, soft. ABSENT: distended, guarding, mass, organolmegaly, rebound, tenderness Rectal exam: PRESENT: deferred Extremities exam: PRESENT: full ROM. ABSENT: calf tenderness, clubbing, pedal edema Neurological exam: PRESENT: alert, awake, oriented to person, oriented to place, oriented to time, oriented to situation, CN II-XII grossly intact, other - forgetful. ABSENT: motor sensory deficit Psychiatric exam: PRESENT: appropriate affect, normal mood. ABSENT: homicidal ideation, suicidal ideation Skin exam: PRESENT: dry, intact, warm. ABSENT: cyanosis, rash Results Laboratory Results: 10/12/18 04:58 10/12/18 04:58 10/12/18 10/12/18 04:58 04:58 WBC 12.4 H RBC 3.57 L Hgb 10.8 L Hct 32.8 L MCV 92 MCH 30.3 MCHC 33.0 RDW 14.4 H Plt Count 166 Sodium 138.5 Potassium 3.5 L Chloride 100 Carbon Dioxide 24 Anion Gap 15 BUN 26 H Creatinine 0.68 Est GFR ( Amer) > 60 Est GFR (Non-Af Amer) > 60 Glucose 155 H Calcium 9.7 10/10/18 13:10 Catheterized Urine Urine Culture - Final Escherichia Coli 10/10/18 10/10/18 10/11/18 12:15 19:36 01:08 Troponin I 0.050 0.072 0.058 Impressions: Chest X-Ray 10/10/18 14:39 IMPRESSION: Cardiomegaly without acute abnormality of the lungs. No focal airspace opacity. Assessment and Plan - Diagnosis (1) UTI (urinary tract infection) Qualifiers: Urinary tract infection type: site unspecified Hematuria presence: with hematuria Qualified Code(s): N39.0 - Urinary tract infection, site not specified; R31.9 - Hematuria, unspecified Is this a current diagnosis for this admission?: Yes Plan: Urinalysis is positive for UTI. Blood cultures are negative at 48 hours. Urine culture grew E. coli. Patient is admitted to the medical floor and continuous cardiac telemetry. He is provided IV fluids. Continue Rocephin; day #2. Anticipate discharge to home tomorrow after recei ving third dose. Tylenol as needed for discomfort or fever. Antiemetics as needed. (2) Dehydration Is this a current diagnosis for this admission?: Yes Plan: Improved; creatinine 1.25-> 0.97-> 0.68 BUN 41-> 38-> 26 Patient demonstrated evidence of dehydration with atrial fibrillation, hypotension, dry mucous membranes and dry flaky skin, laboratory evaluation showing creatinine of 1.25, BUN of 41, anion gap 21, and hypokalemia. Continue maintenance IV fluids. Daily chemistries. (3) Atrial fibrillation Qualifiers: Atrial fibrillation type: unspecified Qualified Code(s): I48.91 - Unspecified atrial fibrillation Is this a current diagnosis for this admission?: Yes Plan: Remote Hx of afib while admitted 2012 for PNA. EKG and continuous telemetry demonstrates rate controlled a. fib. Continue daily Aspirin therapy. Patient is too high risk for chronic anticoagulation. Have resumed home regiment of Toprol XL 50mg daily Start diltiazem 30 mg p.o. three times daily for now. (4) Hypokalemia Is this a current diagnosis for this admission?: Yes Plan: Improved; K 2.6-> 3.3-> 3.5 Magnesium nml. p.o. Potassium replacement today. Will monitor daily chemistries and replace as necessary. (5) HTN (hypertension) Qualifiers: Hypertension type: essential hypertension Qualified Code(s): I10 - Essential (primary) hypertension Is this a current diagnosis for this admission?: Yes Plan: Home medications have been reconciled; have resumed home dose of metoprolol. Continues on low-dose diltiazem for A. fib rate control. Cardiac diet. Holding diuretics secondary to dehydration. (6) Hyperlipidemia Is this a current diagnosis for this admission?: Yes Plan: Cardiac diet. Continue home dose atorvastatin and fenofibrate. - Time Time Spent with patient: 15-24 minutes Medications reviewed and adjusted accordingly: Yes Anticipated discharge: Home Within: within 24 hours
[2018-10-12] MEDS ORDERED: POTASSIUM CHLORIDE 10 MEQ CAPSULE.ER PO ONE (14:45)
[2018-10-12] MEDS: CEFTRIAXONE SODIUM 1,000 MG in DEXTROSE 5%-WATER 50 ML IV SCH (18:47)
[2018-10-12] MEDS: ATORVASTATIN CALCIUM 10 MG TABLET PO SCH (21:29)
[2018-10-13 05:07] LABS: HEMATOCRIT 32.7 % (37.9-51.0); HEMOGLOBIN 10.8 g/dL (13.5-17.0); MEAN CORPUSCULAR HEMOGLOBIN 30.3 pg (27.0-33.4); MEAN CORPUSCULAR HGB CONC 32.9 g/dL (32.0-36.0); MEAN CORPUSCULAR VOLUME 92 fl (80-97); PLATELET COUNT 166 10^3/uL (150-450); RED BLOOD COUNT 3.55 10^6/uL (4.35-5.55); RED CELL DISTRIBUTION WIDTH 14.6 % (11.5-14.0); WHITE BLOOD COUNT 13.4 10^3/uL (4.0-10.5)
[2018-10-13 05:30] LABS: ANION GAP 15 (5-19); BLOOD UREA NITROGEN 24 mg/dL (7-20); CALCIUM 9.9 mg/dL (8.4-10.2); CARBON DIOXIDE 24 mmol/L (22-30); CHLORIDE 101 mmol/L (98-107); GLUCOSE 133 mg/dL (75-110); POTASSIUM 3.8 mmol/L (3.6-5.0); SODIUM 140.3 mmol/L (137-145)
[2018-10-13] MEDS: HEPARIN SOD (PORCINE) 5,000 UNIT/ML 1 ML SYRINGE SUBCUT SCH ×3 (06:08→21:28)
[2018-10-13] MEDS: DILTIAZEM HCL 30 MG TABLET PO SCH ×3 (06:09→21:27)
[2018-10-13] MEDS: NORMAL SALINE 1000 ML 1,000 ML IV PRN (07:41)
[2018-10-13] MEDS: ASPIRIN 81 MG TABLET, CHEWABLE PO SCH (10:35)
[2018-10-13] MEDS: DOCUSATE SODIUM 100 MG CAPSULE PO SCH (10:35)
[2018-10-13] MEDS: TAMSULOSIN HCL 0.4 MG CAP.SR.24H PO SCH (10:35)
[2018-10-13] MEDS: METOPROLOL SUCCINATE 50 MG TAB.SR.24H PO SCH (10:35)
[2018-10-13] MEDS: FAMOTIDINE INJ/PF 20 MG/2 ML SDV IV SCH ×2 (10:36→21:28)
[2018-10-13] MEDS: FENOFIBRATE NANOCRYSTALLIZED 145 MG TABLET PO SCH (10:36)
[2018-10-13] MEDS: CIPROFLOXACIN HCL 500 MG TABLET PO SCH ×2 (12:24→21:27)
[2018-10-13 13:34] LABS: APPEARANCE,URINE CLEAR; BILIRUBIN,URINE NEGATIVE (NEGATIVE); COLOR,URINE YELLOW; GLUCOSE, URINE NEGATIVE (NEGATIVE); KETONES,URINE NEGATIVE (NEGATIVE); LEUKOCYTE ESTERASE,URINE TRACE (NEGATIVE); NITRITE,URINE NEGATIVE (NEGATIVE); PROTEIN,URINE 100 mg/dL (NEGATIVE); URINE SPECIFIC GRAVITY 1.016; UROBILINOGEN,URINE NEGATIVE mg/dL (<2.0)
--- NOTE | 2018-10-13 15:41 | PDOC PROGRESS REPORT ---
Subjective Progress Note for:: 10/13/18 Subjective:: JEFFREY GORDILLO is a 88 year old male with limited past medical history due to patient being poor historians but known from [facility] records to have CHF, hypertension, hyperlipidemia, probable COPD and remote atrial fibrillation who was admitted 10/10/2018 for UTI and dehydration. Patient was seen on morning rounds with his daughter present. He was found resting in the recliner, comfortably on room air. He reports that he is feeling well today; though with continued fatigue and generalized weakness. Nursing reports that patient require 1 assist and walker to ambulate 5-10 feet. Discussed w/ patient and daughter options for SNF vs HH PT/OT services. They agree that they would like to go home with Home Health services; daughter plans to stay in-home w/ PT x2 weeks for assist. He denies fever, chills, chest pain, orthopnea, dyspnea, abdominal pain, nausea vomiting and diarrhea. They have no other questions or concerns today. No concerns per nursing. Reason For Visit: UTI,WEAKNESS,DEHYDRATION Physical Exam Vital Signs: Temp Pulse Resp BP Pulse Ox 98.4 F 86 20 144/85 H 94 10/12/18 23:23 10/13/18 07:00 10/12/18 23:23 10/12/18 23:23 10/12/18 23:23 Intake & Output 10/12/18 10/13/18 10/14/18 06:59 06:59 06:59 Intake Total 2040 1887 360 Output Total 175 50 100 Balance 1865 1837 260 Weight 101.5 kg 101.5 kg General appearance: PRESENT: no acute distress, hard of hearing, obese, well-developed, well-nourished Head exam: PRESENT: atraumatic, normocephalic Eye exam: PRESENT: conjunctiva pink, EOMI, PERRLA. ABSENT: scleral icterus Ear exam: PRESENT: normal external ear exam Mouth exam: PRESENT: moist, tongue midline Neck exam: ABSENT: carotid bruit, JVD, lymphadenopathy, thyromegaly Respiratory exam: PRESENT: clear to auscultation angela, symmetrical, unlabored. ABSENT: rales, rhonchi, wheezes Cardiovascular exam: PRESENT: irregular rhythm, +S1, +S2. ABSENT: diastolic murmur, rubs, systolic murmur Pulses: PRESENT: normal dorsalis pedis pul Vascular exam: PRESENT: normal capillary refill GI/Abdominal exam: PRESENT: normal bowel sounds, soft. ABSENT: distended, guarding, mass, organolmegaly, rebound, tenderness Rectal exam: PRESENT: deferred Extremities exam: PRESENT: full ROM. ABSENT: calf tenderness, clubbing, pedal edema Musculoskeletal exam: PRESENT: ambulatory - w/ 1 assist and walker short distances Neurological exam: PRESENT: alert, awake, oriented to person, oriented to place, oriented to situation, CN II-XII grossly intact, other - Socially appropriate, intermittently forgetful/confused. ABSENT: motor sensory deficit Psychiatric exam: PRESENT: appropriate affect, normal mood. ABSENT: homicidal ideation, suicidal ideation Skin exam: PRESENT: dry, intact, warm. ABSENT: cyanosis, rash Results Laboratory Results: 10/13/18 03:51 10/13/18 03:51 10/13/18 10/13/18 10/13/18 03:51 03:51 12:15 WBC 13.4 H RBC 3.55 L Hgb 10.8 L Hct 32.7 L MCV 92 MCH 30.3 MCHC 32.9 RDW 14.6 H Plt Count 166 Sodium 140.3 Potassium 3.8 Chloride 101 Carbon Dioxide 24 Anion Gap 15 BUN 24 H Creatinine 0.74 Est GFR ( Amer) > 60 Est GFR (Non-Af Amer) > 60 Glucose 133 H Calcium 9.9 Urine Color YELLOW Urine Appearance CLEAR Urine pH 6.0 Ur Specific [place] 1.016 Urine Protein 100 H Urine Glucose (UA) NEGATIVE Urine Ketones NEGATIVE Urine Blood SMALL H Urine Nitrite NEGATIVE Ur Leukocyte Esterase TRACE H Urine WBC (Auto) 22 Urine RBC (Auto) 2 10/10/18 10/10/18 10/11/18 12:15 19:36 01:08 Troponin I 0.050 0.072 0.058 Impressions: Chest X-Ray 10/10/18 14:39 IMPRESSION: Cardiomegaly without acute abnormality of the lungs. No focal airspace opacity. Assessment and Plan - Diagnosis (1) UTI (urinary tract infection) Qualifiers: Urinary tract infection type: site unspecified Hematuria presence: with hematuria Qualified Code(s): N39.0 - Urinary tract infection, site not specified; R31.9 - Hematuria, unspecified Is this a current diagnosis for this admission?: Yes Plan: Urinalysis is positive for UTI. Blood cultures are negative at 72 hours. Urine culture grew E. coli. Patient is admitted to the medical floor and continuous cardiac telemetry. He is provided IV fluids. Rocephin discontinued after 3rd dose. Start Cipro 500 mg twice daily x 10 days for completion of therapy. Tylenol as needed for discomfort or fever. Antiemetics as needed. (2) Dehydration Is this a current diagnosis for this admission?: Yes Plan: Resolved; creatinine 1.25-> 0.97-> 0.68-> 0.74 BUN 41-> 38-> 26-> 24 Patient demonstrated evidence of dehydration with atrial fibrillation, hypotension, dry mucous membranes and dry flaky skin, laboratory evaluation showing creatinine of 1.25, BUN of 41, anion gap 21, and hypokalemia. Encourage p.o fluids. (3) Atrial fibrillation Qualifiers: Atrial fibrillation type: unspecified Qualified Code(s): I48.91 - Unspecified atrial fibrillation Is this a current diagnosis for this admission?: Yes Plan: Remote Hx of afib while admitted 2012 for PNA. EKG and continuous telemetry demonstrates rate controlled a. fib. Continue daily Aspirin therapy. Patient is too high risk for chronic anticoagulation. Have resumed home regiment of Toprol XL 50mg daily Continue diltiazem 30 mg p.o. three times daily. (4) Hypokalemia Is this a current diagnosis for this admission?: Yes Plan: Resolved; K 2.6-> 3.3-> 3.5-> 3.8 Magnesium nml. (5) HTN (hypertension) Qualifiers: Hypertension type: essential hypertension Qualified Code(s): I10 - [place] (primary) hypertension Is this a current diagnosis for this admission?: Yes Plan: Accpetable blood pressures. Home medications have been reconciled; have resumed home dose of metoprolol and furosemide. Continues on low-dose diltiazem for A. fib rate control. Cardiac diet. (6) Hyperlipidemia Is this a current diagnosis for this admission?: Yes Plan: Cardiac diet. Continue home dose atorvastatin and fenofibrate. - Time Time Spent with patient: 25-34 minutes Medications reviewed and adjusted accordingly: Yes Anticipated discharge: Home with Homehealth Within: within 24 hours
[2018-10-13] MEDS: ATORVASTATIN CALCIUM 10 MG TABLET PO SCH (21:27)
[2018-10-14 01:38] VITALS: BP 127/68
[2018-10-14 05:45] LABS: HEMATOCRIT 33.9 % (37.9-51.0); HEMOGLOBIN 11.1 g/dL (13.5-17.0); MEAN CORPUSCULAR HGB CONC 32.8 g/dL (32.0-36.0); MEAN CORPUSCULAR VOLUME 92 fl (80-97); PLATELET COUNT 213 10^3/uL (150-450); RED CELL DISTRIBUTION WIDTH 14.9 % (11.5-14.0); WHITE BLOOD COUNT 12.1 10^3/uL (4.0-10.5)
[2018-10-14] MEDS: DILTIAZEM HCL 30 MG TABLET PO SCH ×2 (06:09→13:20)
[2018-10-14] MEDS: HEPARIN SOD (PORCINE) 5,000 UNIT/ML 1 ML SYRINGE SUBCUT SCH ×2 (06:11→13:19)
[2018-10-14] MEDS: FAMOTIDINE INJ/PF 20 MG/2 ML SDV IV SCH (10:31)
[2018-10-14] MEDS: ASPIRIN 81 MG TABLET, CHEWABLE PO SCH (10:35)
[2018-10-14] MEDS: METOPROLOL SUCCINATE 50 MG TAB.SR.24H PO SCH (10:35)
[2018-10-14] MEDS: TAMSULOSIN HCL 0.4 MG CAP.SR.24H PO SCH (10:35)
[2018-10-14] MEDS: FENOFIBRATE NANOCRYSTALLIZED 145 MG TABLET PO SCH (10:35)
[2018-10-14] MEDS: DOCUSATE SODIUM 100 MG CAPSULE PO SCH (10:36)
[2018-10-14] MEDS: CIPROFLOXACIN HCL 500 MG TABLET PO SCH (10:38)
[2018-10-14] MEDS ORDERED: FAMOTIDINE 20 MG TABLET PO SCH (11:30)
--- NOTE | 2018-10-15 14:19 | PDOC DISCHARGE SUMMARY ---
General - Admit/Disc Date/PCP Admission Date/Primary Care Provider: 10/10/18 14:53 RANDA AGUIRRE MD Discharge Date: 10/14/18 - Discharge Diagnosis (1) UTI (urinary tract infection) Is this a current diagnosis for this admission?: Yes Summary: Urinalysis is positive for UTI. Blood cultures are negative. Urine culture grew E. coli. Patient was admitted to the medical floor with continuous cardiac telemetry. He was provided IV fluids and empirically treated with Rocephin x 3 days and then transitioned to Cipro 500 mg twice daily x 10 days for completion of therapy. At time of discharge, the patient is in stable condition, asymptomatic, has been afebrile >48 hrs, with continued downward trend in WBCs. The patient was noted to have intermittent confusion/forgetfulness, though improved and nearing baseline per family. He is rather debilitated and only able to ambulate ~10 feet w/ walker. Patient and family decline SNF rehab but agreeable to home health services. He is instructed to follow up with his primary care provider within 1 week and to return to the emergency department as needed for concerning symptoms. (2) Dehydration Is this a current diagnosis for this admission?: Yes Summary: Resolved; creatinine 1.25-> 0.97-> 0.68-> 0.74 BUN 41-> 38-> 26-> 24 Patient demonstrated evidence of dehydration with atrial fibrillation, hypotension, dry mucous membranes and dry flaky skin, laboratory evaluation showing creatinine of 1.25, BUN of 41, anion gap 21, and hypokalemia. Initially provided IVF and encouraged p.o fluids. (3) Atrial fibrillation Is this a current diagnosis for this admission?: Yes Summary: Remote Hx of afib while admitted 2012 for PNA. EKG and continuous telemetry demonstrates rate controlled a. fib. Continue daily Aspirin therapy. Patient is too high risk for chronic anticoagulation. Have resumed home regiment of Toprol XL 50mg daily Continue diltiazem 30 mg p.o. three times daily; prescription provided at discharge to maintain rate control. (4) Hypokalemia Is this a current diagnosis for this admission?: Yes Summary: Resolved; K 2.6-> 3.3-> 3.5-> 3.8 Magnesium nml. (5) HTN (hypertension) Is this a current diagnosis for this admission?: Yes Summary: Accpetable blood pressures. Home dose metoprolol and furosemide are continued. Started on low-dose diltiazem for A. fib rate control; BP tolerating well. Cardiac diet. (6) Hyperlipidemia Is this a current diagnosis for this admission?: Yes Summary: Cardiac diet. Continue home dose atorvastatin and fenofibrate. - Additional Information Resuscitation Status: Full Code Discharge Diet: Cardiac Discharge Activity: Activity As Tolerated, Balance Activity w/Rest, Slowly Increase Activity, Supervised Activity Prescriptions: Aspirin [Aspirin 81 mg Chewable Tablet] 81 mg PO DAILY #30 tab.chew Ciprofloxacin HCl [Cipro 500 mg Tablet] 500 mg PO Q12 #14 tablet Diltiazem HCl [Cardizem 30 mg Tablet] 30 mg PO Q8 #90 tablet Home Medications: Tamsulosin HCl 0.4 mg PO DAILY 10/22/12 Magnesium Oxide [Mag-Ox 400 mg Tablet] 400 mg PO DAILY 10/10/18 Metolazone [Zaroxolyn 2.5 mg Tablet] 2.5 mg PO QHS 10/10/18 Atorvastatin Calcium [Lipitor 10 mg Tablet] 10 mg PO QHS 10/11/18 Fenofibrate Nanocrystallized [Tricor 145 mg Tablet] 145 mg PO DAILY 10/11/18 Furosemide [Lasix 40 mg Tablet] 40 mg PO DAILY 10/11/18 Meloxicam [Mobic] 7.5 mg PO DAILY 10/11/18 Metoprolol Succinate [Toprol Xl 50 mg Tab.sr] 50 mg PO DAILY 10/11/18 Acetaminophen [Tylenol 325 mg Tablet] 650 mg PO Q4HP PRN tablet 10/13/18 Aspirin [Aspirin 81 mg Chewable Tablet] 81 mg PO DAILY #30 tab.chew 10/13/18 Ciprofloxacin HCl [Cipro 500 mg Tablet] 500 mg PO Q12 #14 tablet 10/13/18 Diltiazem HCl [Cardizem 30 mg Tablet] 30 mg PO Q8 #90 tablet 10/13/18 Docusate Sodium [Colace 100 mg Capsule] 100 mg PO DAILY capsule 10/13/18 History of Present Illness History of Present Illness: JEFFREY GORDILLO is a 88 year old male with limited past medical history due to patient being poor historians but known from [facility] records to have hypertension, hyperlipidemia, probable COPD and remote atrial fibrillation when admitted for pneumonia (2012) who presented to the emergency department today with complaint of 3 days of fever, weakness, and falls. He is otherwise unable to identify specific symptoms; denies dyspnea, cough, abdominal pain, nausea, vomiting, diarrhea, urinary urgency, frequency and dysuria. Evaluation in the emergency department demonstrates atrial fibrillation with chest x-ray negative for acute findings, UTI, leukocytosis (12) hypokalemia (2.6), dehydration (creatinine 1.25, BUN 41) and indeterminately elevated troponin of 0.050. He is provided IV fluids and empirically placed on Rocephin. He is referred to the hospitalist service for admission and management of the above-stated complaints and findings. Physical Exam Vital Signs: Temp Pulse Resp BP Pulse Ox 97.2 F 50 L 17 127/68 H 96 10/14/18 12:10 10/14/18 12:10 10/14/18 12:10 10/14/18 12:10 10/14/18 12:10 Intake & Output 10/14/18 10/15/18 10/16/18 06:59 06:59 06:59 Intake Total 600 717 Output Total 100 Balance 500 717 Weight 101 kg General appearance: PRESENT: no acute distress, hard of hearing, obese, well- developed, well-nourished Head exam: PRESENT: atraumatic, normocephalic Eye exam: PRESENT: conjunctiva pink, EOMI, PERRLA. ABSENT: scleral icterus Ear exam: PRESENT: normal external ear exam Mouth exam: PRESENT: moist, tongue midline Neck exam: ABSENT: carotid bruit, JVD, lymphadenopathy, thyromegaly Respiratory exam: PRESENT: clear to auscultation angela, symmetrical, unlabored. ABSENT: rales, rhonchi, wheezes Cardiovascular exam: PRESENT: irregular rhythm, +S1, +S2. ABSENT: diastolic murmur, rubs, systolic murmur Pulses: PRESENT: normal dorsalis pedis pul Vascular exam: PRESENT: normal capillary refill GI/Abdominal exam: PRESENT: normal bowel sounds, soft. ABSENT: distended, gu arding, mass, organolmegaly, rebound, tenderness Rectal exam: PRESENT: deferred Extremities exam: PRESENT: full ROM. ABSENT: calf tenderness, clubbing, pedal edema Musculoskeletal exam: PRESENT: ambulatory - w/ front wheel walker and minimal assistance ~10 feet Neurological exam: PRESENT: alert, awake, oriented to person, oriented to place, oriented to situation, CN II-XII grossly intact, other - Intermittently confused/forgetful; nearing baseline per family.. ABSENT: oriented to time, motor sensory deficit Psychiatric exam: PRESENT: appropriate affect, normal mood. ABSENT: homicidal ideation, suicidal ideation Skin exam: PRESENT: dry, intact, warm. ABSENT: cyanosis, rash Results Laboratory Results: 10/14/18 04:52 10/13/18 03:51 10/10/18 14:01 Blood Blood Culture - Final NO GROWTH IN 5 DAYS 10/10/18 12:53 Blood Blood Culture - Final NO GROWTH IN 5 DAYS 10/10/18 10/10/18 10/11/18 12:15 19:36 01:08 Troponin I 0.050 0.072 0.058 Impressions: Chest X-Ray 10/10/18 14:39 IMPRESSION: Cardiomegaly without acute abnormality of the lungs. No focal airspace opacity. Qualifiers - * PATIENT BEING DISCHARGED WITH ANY OF THE FOLLOWING DIAGNOSIS: No Acute Heart Failure Is this a Heart Failure Patient?: No Plan Discharge Plan: Patient is discharged to home in the care of family members ( and adult children who intend to stay with patient for 1-2 weeks) with home health nursing, physical therapy, occupational therapy, aide, and social services director services. Follow up with primary care provider within 1 week. Take antibiotics and other medications as prescribed. Drink plenty of water. Weight daily and call doctor if you gain more than 2 pounds overnight. Return to the emergency department as needed for concerning symptoms. Time Spent: Greater than 30 Minutes
== END 2018-10-14 13:34 | disposition home health service (06) | DRG 690 ==
LOC: ER 12:35 → EH 14:53 → 5 17:01
PROVIDERS: ADMIT Internal Medicine; ATTEND Internal Medicine
DX: N39.0 Urinary tract infection, site not specified (principal); E86.0 Dehydration; I48.91 Unspecified atrial fibrillation; I95.9 Hypotension, unspecified; B96.20 Unspecified Escherichia coli [E. coli] as the cause of diseases classified elsewhere; I10 Essential (primary) hypertension; E87.6 Hypokalemia; E78.5 Hyperlipidemia, unspecified; Z87.891 Personal history of nicotine dependence; Z79.899 Other long term (current) drug therapy; Z91.81 History of falling; Z79.82 Long term (current) use of aspirin
CPT/HCPCS: 36415; 51701; 71045; 80048; 80053; 81001; 82803; 82962; 83036; 83605; 83735; 84484; 85025; 85027; 85610; 87040; 87086; 87088; 87186; 93005; 93010; 96365; 96375; 99285; J0696; J1644; J3480; J3490; J7030; J7060; S0028

== ENCOUNTER 2018-10-16 14:11 | Inpatient (IN) | payer MEDICARE, OTHER ==
--- NOTE | 2018-10-16 15:28 | ER Document Report ---
ED Medical Screen (RME) - General Chief Complaint: Altered Mental Status Stated Complaint: ALTERED MENTAL STATUS Time Seen by Provider: 10/16/18 15:22 Primary Care Provider: RANDA AGUIRRE MD [Primary Care Provider] - Follow up as needed Mode of Arrival: Wheelchair Information source: Patient Notes: 88-year-old male presented to ED for increasing confusion since he was admitted for a UTI last Sunday. He was discharged home on Sunday and was lucid for short period of time but states he became more confused as the day went on. He went to Randa Agurire MD's office today and they sent him to the emergency room state that he may have had a small stroke. Daughter states that patient is normally alert and oriented and walks with canes but has become more more confused since this episode with the UTI. He is on Cipro at home at this time. I have greeted and performed a rapid initial assessment of this patient. A comprehensive ED assessment and evaluation of the patient, analysis of test results and completion of medical decision making process will be conducted by an additional ED providers. Dictation of this chart was performed using voice recognition software; therefore, there may be some unintended grammatical errors. TRAVEL OUTSIDE OF THE [place] IN LAST 30 DAYS: No - Related Data Allergies/Adverse Reactions: No Known Allergies Allergy (Verified 10/16/18 14:14) Past Medical History - Social History Frequency of alcohol use: None Drug Abuse: None - Past Medical History Cardiac Medical History: Reports: Hx Atrial Fibrillation, Hx Congestive Heart Failure, Hx Hypercholesterolemia, Hx Hypertension Pulmonary Medical History: Reports: Hx COPD Renal/ Medical History: Denies: Hx Peritoneal Dialysis Psychiatric Medical History: Denies: Hx Depression Traumatic Medical History: Reports: Hx Fractures Past Surgical History: Reports: Hx Orthopedic Surgery - left knee replacement, Other - VATS 2013 - Immunizations Hx Diphtheria, Pertussis, Tetanus Vaccination: No Physical Exam - Vital signs Vitals: Temp Pulse Resp BP Pulse Ox 98.1 F 69 16 135/70 H 96 10/16/18 14:39 10/16/18 14:39 10/16/18 14:39 10/16/18 14:39 10/16/18 14:39 Course - Vital Signs Vital signs: Temp Pulse Resp BP Pulse Ox 98.1 F 69 16 135/70 H 96 10/16/18 14:39 10/16/18 14:39 10/16/18 14:39 10/16/18 14:39 10/16/18 14:39 Doctor's Discharge - Discharge Referrals: RANDA AGUIRRE MD [Primary Care Provider] - Follow up as needed
[2018-10-16 16:08] LABS: INTERNATIONAL RATION (INR) 0.97; PROTHROMBIN TIME 13.4 SEC (11.4-15.4)
[2018-10-16 16:09] LABS: PARTIAL THROMBOPLASTIN TIME 28.7 SEC (23.5-35.8)
[2018-10-16 16:18] LABS: HEMOGLOBIN 11.9 g/dL (13.5-17.0); MEAN CORPUSCULAR HEMOGLOBIN 30.3 pg (27.0-33.4); MEAN CORPUSCULAR HGB CONC 33.1 g/dL (32.0-36.0); MEAN CORPUSCULAR VOLUME 92 fl (80-97); PLATELET COUNT 320 10^3/uL (150-450); RED BLOOD COUNT 3.93 10^6/uL (4.35-5.55); RED CELL DISTRIBUTION WIDTH 15.3 % (11.5-14.0); WHITE BLOOD COUNT 15.7 10^3/uL (4.0-10.5)
--- NOTE | 2018-10-16 16:24 | RADIOLOGY REPORT (SQ) ---
EXAM DESCRIPTION: CT HEAD WITHOUT COMPLETED DATE/TIME: 10/16/2018 4:12 pm REASON FOR STUDY: Increasing confusion since last Sunday COMPARISON: None. TECHNIQUE: Axial images acquired through the brain without intravenous contrast. Images reviewed wi th bone, brain and subdural windows. Additional sagittal and coronal reconstructions were generated. Images stored on PACS. All CT scanners at this facility use dose modulation, iterative reconstruction, and/or weight based d osing when appropriate to reduce radiation dose to as low as reasonably achievable (ALARA). [facility]: Dose Right [facility]: CareDose [facility]: Dose Right [facility]: Teradose 4D [facility]: Fed Playbook RADIATION DOSE: CT Rad equipment meets quality standard of care and radiation dose reduction techniq ues were employed. CTDIvol: 53.2 mGy. DLP: 1070 mGy-cm.mGy. LIMITATIONS: None. FINDINGS: VENTRICLES: Prominent. CEREBRUM: No masses. No hemorrhage. No midline shift. Areas of low density in the white matter mos t likely due to chronic micro-vascular ischemic change. No evidence for acute infarction. Bilateral basal ganglia mineralization. CEREBELLUM: No masses. No hemorrhage. No alteration of density. No evidence for acute infarction. EXTRAAXIAL SPACES: Age-related involutional change. No fluid collections. No masses. ORBITS AND GLOBE: No intra- or extraconal masses. Normal contour of globe without masses. Left gustabo ract surgery. CALVARIUM: No fracture. PARANASAL SINUSES: Opacification of the right maxillary sinus. Mucosal thickening throughout the eth moid air cells and right frontal sinus. Mastoid air cells are clear. SOFT TISSUES: No mass or hematoma. OTHER: No other significant finding. IMPRESSION: 1. Chronic age related changes without evidence of acute intracranial process. 2. Mucosal sinus disease greatest within the right frontal and maxillary sinus and ethmoid air cells . EVIDENCE OF ACUTE STROKE: NO. TECHNICAL DOCUMENTATION: JOB ID: [id number] Quality ID # [id number]: Final reports with documentation of one or more dose reduction techniques (e.g., Au tomated exposure control, adjustment of the mA and/or kV according to patient size, use of iterative reconstruction technique) 2010 [employer]- All Rights Reserved Reading location - IP/workstation name: [email or web address]
[2018-10-16 16:25] LABS: ALANINE AMINOTRANSFERASE 65 U/L (21-72); ALBUMIN 3.4 g/dL (3.5-5.0); ALKALINE PHOSPHATASE 102 U/L (38-126); ANION GAP 14 (5-19); ASPARTATE AMINO TRANSFERASE 36 U/L (17-59); BILIRUBIN,DIRECT 0.4 mg/dL (0.0-0.4); BILIRUBIN,TOTAL 0.7 mg/dL (0.2-1.3); BLOOD UREA NITROGEN 23 mg/dL (7-20); CALCIUM 10.1 mg/dL (8.4-10.2); CARBON DIOXIDE 30 mmol/L (22-30); CHLORIDE 97 mmol/L (98-107); GLUCOSE 102 mg/dL (75-110); POTASSIUM 3.9 mmol/L (3.6-5.0); SODIUM 140.8 mmol/L (137-145); TOTAL PROTEIN 5.9 g/dL (6.3-8.2)
[2018-10-16 16:47] LABS: ABSOLUTE LYMPHOCYTES# (MANUAL) 2.2 10^3/uL (0.5-4.7); ABSOLUTE MONOCYTES # (MANUAL) 0.6 10^3/uL (0.1-1.4); ABSOLUTE NEUTROPHILS# (MANUAL) 12.1 10^3/uL (1.7-8.2); BASOPHILS % (MANUAL) 0 % (0-2); EOSINOPHILS % (MANUAL) 5 % (0-6); LYMPHOCYTES % (MANUAL) 14 % (13-45); METAMYELOCYTES % (MANUAL) 1 % (0); MONOCYTES % (MANUAL) 4 % (3-13); SEGMENTED NEUTROPHILS % (MAN) 76 % (42-78); TOTAL CELLS COUNTED 100
[2018-10-16 16:49] LABS: ANISOCYTOSIS SLIGHT; OVALOCYTES SLIGHT; PLATELET COMMENT ADEQUATE; POIKILOCYTOSIS SLIGHT; TOXIC GRANULATION SLIGHT
[2018-10-16 19:12] LABS: APPEARANCE,URINE CLEAR; BILIRUBIN,URINE NEGATIVE (NEGATIVE); COLOR,URINE STRAW; GLUCOSE, URINE NEGATIVE (NEGATIVE); KETONES,URINE NEGATIVE (NEGATIVE); LEUKOCYTE ESTERASE,URINE NEGATIVE (NEGATIVE); NITRITE,URINE NEGATIVE (NEGATIVE); PROTEIN,URINE NEGATIVE (NEGATIVE); URINE SPECIFIC GRAVITY 1.009; UROBILINOGEN,URINE NEGATIVE mg/dL (<2.0)
--- NOTE | 2018-10-16 19:17 | ER Document Report ---
ED General - General Chief Complaint: Altered Mental Status Stated Complaint: ALTERED MENTAL STATUS Time Seen by Provider: 10/16/18 15:22 Mode of Arrival: Wheelchair Information source: Patient, Relative, [facility] Records Notes: 88-year-old male with atrial fibrillation, COPD, congestive heart failure, hypertension, hyperlipidemia presents from his primary care physician's office with his family who is concerned for worsening confusion. Family reports that the patient was admitted on October 11, 2018 for a urinary tract infection. They reported that prior to his arrival to the emergency department last week he had 2 falls. Patient was discharged from [facility] on October 14 with a prescription for Cipro. Family reports the patient is more somnolent, having hallucinations and stating that he has ants crawling all over him. He has had no recurrent falls, vomiting, fever. His last bowel movement was yesterday. Patient is somnolent but arouses easily with verbal stimulation. He is alert and oriented x3. Denies any current physical complaints. TRAVEL OUTSIDE OF THE [place] IN LAST 30 DAYS: No - HPI Onset: Other Onset/Duration: Gradual, Persistent Quality of pain: No pain Severity: None Pain Level: Denies Associated symptoms: denies: Body/muscle aches, Chest pain, Fever, Nausea, Vomiting, Shortness of breath Exacerbated by: Denies Relieved by: Denies Similar symptoms previously: Yes Recently seen / treated by doctor: Yes - Recently discharged from [facility] 10/14/2018 - Related Data Allergies/Adverse Reactions: No Known Allergies Allergy (Verified 10/16/18 14:14) Past Medical History - General Information source: Patient - Social History Smoking Status: Former Smoker Frequency of alcohol use: None Drug Abuse: None Lives with: Spouse/Significant other Family History: Reviewed & Not Pertinent Patient has suicidal ideation: No Patient has homicidal ideation: No - Past Medical History Cardiac Medical History: Reports: Hx Atrial Fibrillation, Hx Congestive Heart Failure, Hx Hypercholesterolemia, Hx Hypertension Pulmonary Medical History: Reports: Hx COPD Renal/ Medical History: Denies: Hx Peritoneal Dialysis Psychiatric Medical History: Denies: Hx Depression Traumatic Medical History: Reports: Hx Fractures Past Surgical History: Reports: Hx Orthopedic Surgery - left knee replacement, Other - VATS 2012 - Immunizations Hx Diphtheria, Pertussis, Tetanus Vaccination: No Hx Pneumococcal Vaccination: 10/22/12 Review of Systems - Review of Systems Notes: REVIEW OF SYSTEMS: CONSTITUTIONAL : Denies fever, chills, or sweats. Denies recent illness. Denies weight loss, recent hospitalizations. EENT: Denies visual changes, eye pain. Denies sore throat, oral lesions, difficulty swallowing. CARDIOVASCULAR: Denies chest pain. Denies palpitations. Denies lower extremity edema. RESPIRATORY: Denies cough. Denies shortness of breath, wheezing. GASTROINTESTINAL: Denies abdominal pain or distention. Denies nausea, vomiting, or diarrhea. Denies blood in vomitus, stools, or per rectum. Denies black, tarry stools. Denies constipation. GENITOURINARY: Denies difficulty urinating, painful urination, frequency, blood in urine, testicular pain or penile discharge. MUSCULOSKELETAL: Denies back or neck pain or stiffness. Denies joint pain or swelling. SKIN: Denies rash, lesions or sores. HEMATOLOGIC : Denies easy bruising or bleeding. LYMPHATIC: Denies swollen glands. NEUROLOGICAL: + confusion + altered mental status. Denies loss of consciousness. Denies dizziness or lightheadedness. Denies headache. Denies weakness or paralysis. Denies problems difficulty with ambulation, slurred speech. Denies sensory loss, numbness, or tingling. Denies seizures. PSYCHIATRIC: Denies anxiety or stress. Denies depression, suicidal ideation, or Physical Exam - Vital signs Vitals: Temp Pulse Resp BP Pulse Ox 98.1 F 69 16 135/70 H 96 10/16/18 14:39 10/16/18 14:39 10/16/18 14:39 10/16/18 14:39 10/16/18 14:39 - Notes Notes: PHYSICAL EXAMINATION: GENERAL: Somnolent, easily arousable with verbal stimuli. HEAD: Atraumatic, normocephalic. EYES: Pupils equal round and reactive to light, extraocular movements intact, sclera anicteric, conjunctiva are normal. ENT: Nares patent, oropharynx clear without exudates. Moist mucous membranes. NECK: Normal range of motion, supple without lymphadenopathy LUNGS: Breath sounds clear to auscultation bilaterally and equal. No wheezes rales or rhonchi. HEART: Regular rate, irregular rhythm without murmurs. ABDOMEN: Soft, nontender, nondistended abdomen. No guarding, no rebound. No masses appreciated. Musculoskeletal: Normal range of motion, no pitting or edema. No cyanosis. Patient moving all extremities. NEUROLOGICAL: Cranial nerves grossly intact. Normal speech, Normal sensory, motor exams PSYCH: Normal mood, normal affect. SKIN: Warm, Dry, normal turgor, no rashes or lesions noted. Course - Re-evaluation Re-evalutation: 10/17/18 03:28 Laboratory 10/16/18 10/16/18 10/16/18 15:47 15:47 15:47 WBC 15.7 H RBC 3.93 L Hgb 11.9 L Hct 36.0 L MCV 92 MCH 30.3 MCHC 33.1 RDW 15.3 H Plt Count 320 Total Counted 100 Seg Neutrophils % Not Reportable Seg Neuts % (Manual) 76 Lymphocytes % Not Reportable Lymphocytes % (Manual) 14 Monocytes % Not Reportable Monocytes % (Manual) 4 Eosinophils % Not Reportable Eosinophils % (Manual) 5 Basophils % Not Reportable Basophils % (Manual) 0 Metamyelocytes % 1 H Absolute Neutrophils Not Reportable Abs Neuts (Manual) 12.1 H Absolute Lymphocytes Not Reportable Abs Lymphs (Manual) 2.2 Absolute Monocytes Not Reportable Abs Monocytes (Manual) 0.6 Absolute Eosinophils Not Reportable Absolute Eos (Manual) 0.8 H Absolute Basophils Not Reportable Abs Basophils (Manual) 0.0 Toxic Granulation SLIGHT Platelet Comment ADEQUATE Poikilocytosis SLIGHT Anisocytosis SLIGHT Ovalocytes SLIGHT PT 13.4 INR 0.97 APTT 28.7 VBG pH VBG pCO2 VBG HCO3 VBG Base Excess Sodium 140.8 Potassium 3.9 Chloride 97 L Carbon Dioxide 30 Anion Gap 14 BUN 23 H Creatinine 0.83 Est GFR ( Amer) > 60 Est GFR (Non-Af Amer) > 60 Glucose 102 Calcium 10.1 Magnesium Total Bilirubin 0.7 Direct Bilirubin 0.4 Neonat Total Bilirubin Not Reportable Neonat Direct Bilirubin Not Reportable Neonat Indirect Bili Not Reportable AST 36 ALT 65 Alkaline Phosphatase 102 Ammonia Troponin I NT-Pro-B Natriuret Pep Total Protein 5.9 L Albumin 3.4 L Urine Color Urine Appearance Urine pH Ur Specific [place] Urine Protein Urine Glucose (UA) Urine Ketones Urine Blood Urine Nitrite Urine Bilirubin Urine Urobilinogen Ur Leukocyte Esterase Urine WBC (Auto) Urine RBC (Auto) U Hyaline Cast (Auto) Urine Mucus (Auto) Urine Ascorbic Acid 10/16/18 10/16/18 10/16/18 15:47 15:47 18:47 WBC RBC Hgb Hct MCV MCH MCHC RDW Plt Count Total Counted Seg Neutrophils % Seg Neuts % (Manual) Lymphocytes % Lymphocytes % (Manual) Monocytes % Monocytes % (Manual) Eosinophils % Eosinophils % (Manual) Basophils % Basophils % (Manual) Metamyelocytes % Absolute Neutrophils Abs Neuts (Manual) Absolute Lymphocytes Abs Lymphs (Manual) Absolute Monocytes Abs Monocytes (Manual) Absolute Eosinophils Absolute Eos (Manual) Absolute Basophils Abs Basophils (Manual) Toxic Granulation Platelet Comment Poikilocytosis Anisocytosis Ovalocytes PT INR APTT VBG pH VBG pCO2 VBG HCO3 VBG Base Excess Sodium Potassium Chloride Carbon Dioxide Anion Gap BUN Creatinine Est GFR ( Amer) Est GFR (Non-Af Amer) Glucose Calcium Magnesium 1.4 L Total Bilirubin Direct Bilirubin Neonat Total Bilirubin Neonat Direct Bilirubin Neonat Indirect Bili AST ALT Alkaline Phosphatase Ammonia Troponin I 0.016 NT-Pro-B Natriuret Pep 2930 H Total Protein Albumin Urine Color STRAW Urine Appearance CLEAR Urine pH 5.0 Ur Specific [place] 1.009 Urine Protein NEGATIVE Urine Glucose (UA) NEGATIVE Urine Ketones NEGATIVE Urine Blood NEGATIVE Urine Nitrite NEGATIVE Urine Bilirubin NEGATIVE Urine Urobilinogen NEGATIVE Ur Leukocyte Esterase NEGATIVE Urine WBC (Auto) 1 Urine RBC (Auto) 1 U Hyaline Cast (Auto) 1 Urine Mucus (Auto) RARE Urine Ascorbic Acid NEGATIVE 10/16/18 10/16/18 20:20 20:20 WBC RBC Hgb Hct MCV MCH MCHC RDW Plt Count Total Counted Seg Neutrophils % Seg Neuts % (Manual) Lymphocytes % Lymphocytes % (Manual) Monocytes % Monocytes % (Manual) Eosinophils % Eosinophils % (Manual) Basophils % Basophils % (Manual) Metamyelocytes % Absolute Neutrophils Abs Neuts (Manual) Absolute Lymphocytes Abs Lymphs (Manual) Absolute Monocytes Abs Monocytes (Manual) Absolute Eosinophils Absolute Eos (Manual) Absolute Basophils Abs Basophils (Manual) Toxic Granulation Platelet Comment Poikilocytosis Anisocytosis Ovalocytes PT INR APTT VBG pH 7.42 VBG pCO2 50.6 VBG HCO3 31.9 VBG Base Excess 6.2 Sodium Potassium Chloride Carbon Dioxide Anion Gap BUN Creatinine Est GFR ( Amer) Est GFR (Non-Af Amer) Glucose Calcium Magnesium Total Bilirubin Direct Bilirubin Neonat Total Bilirubin Neonat Direct Bilirubin Neonat Indirect Bili AST ALT Alkaline Phosphatase Ammonia 28.4 Troponin I NT-Pro-B Natriuret Pep Total Protein Albumin Urine Color Urine Appearance Urine pH Ur Specific [place] Urine Protein Urine Glucose (UA) Urine Ketones Urine Blood Urine Nitrite Urine Bilirubin Urine Urobilinogen Ur Leukocyte Esterase Urine WBC (Auto) Urine RBC (Auto) U Hyaline Cast (Auto) Urine Mucus (Auto) Urine Ascorbic Acid Head CT 10/16/18 15:22 IMPRESSION: 1. Chronic age related changes without evidence of acute intracranial process. 2. Mucosal sinus disease greatest within the right frontal and maxillary sinus and ethmoid air cells. EVIDENCE OF ACUTE STROKE: NO. Chest X-Ray 10/16/18 19:11 IMPRESSION: Cannot exclude mild pulmonary edema. Temp Pulse Resp BP Pulse Ox 97.6 F 29 L 18 151/65 H 97 10/17/18 02:59 10/17/18 02:59 10/17/18 02:59 10/17/18 02:59 10/17/18 02:59 10/17/18 03:29 88-year-old male with atrial fibrillation, COPD, congestive heart failure, hypertension, hyperlipidemia presents from his primary care physician's office with his family who is concerned for worsening confusion. Family reports that the patient was admitted on October 11, 2018 for a urinary tract infection. They reported that prior to his arrival to the emergency department last week he had 2 falls. Patient was discharged from [facility] on October 14 with a prescription for Cipro. Family reports the patient is more somnolent, having hallucinations and stating that he has ants crawling all over him. Vital signs reviewed and patient is hypertensive but afebrile. Previous medical records and nursing notes reviewed. CT of the head was obtained and showed no evidence of acute process. Did show chronic age-related changes. CBC does show a new leukocytosis. CMP is without electrolyte abnormality. Urinalysis is clear of infection. I did speak to Dr. Sims who has not agreed to admit the patient for altered mental status, acute encephalopathy. - Vital Signs Vital signs: Temp Pulse Resp BP Pulse Ox 97.6 F 29 L 18 151/65 H 97 10/17/18 02:59 10/17/18 02:59 10/17/18 02:59 10/17/18 02:59 10/17/18 02:59 - Laboratory Result Diagrams: 10/16/18 15:47 10/16/18 15:47 Laboratory results interpreted by me: 10/16/18 10/16/18 10/16/18 15:47 15:47 15:47 WBC 15.7 H RBC 3.93 L Hgb 11.9 L Hct 36.0 L RDW 15.3 H Metamyelocytes % 1 H Abs Neuts (Manual) 12.1 H Absolute Eos (Manual) 0.8 H Chloride 97 L BUN 23 H Magnesium 1.4 L NT-Pro-B Natriuret Pep Total Protein 5.9 L Albumin 3.4 L 10/16/18 15:47 WBC RBC Hgb Hct RDW Metamyelocytes % Abs Neuts (Manual) Absolute Eos (Manual) Chloride BUN Magnesium NT-Pro-B Natriuret Pep 2930 H Total Protein Albumin - Diagnostic Test Radiology reviewed: Image reviewed, Reports reviewed Discharge - Discharge Clinical Impression: Encephalopathy, Hallucination Leukocytosis Qualifiers: Leukocytosis type: unspecified Qualified Code(s): D72.829 - Elevated white blood cell count, unspecified Condition: Good Disposition: ADMITTED INPATIENT Admitting Provider: Levi (Hospitalist) Unit Admitted: Medical Floor
--- NOTE | 2018-10-16 20:13 | RADIOLOGY REPORT (SQ) ---
EXAM DESCRIPTION: CHEST SINGLE VIEW COMPLETED DATE/TIME: 10/16/2018 7:39 pm REASON FOR STUDY: ams COMPARISON: None. EXAM PARAMETERS: NUMBER OF VIEWS: One view. TECHNIQUE: Single frontal radiographic view of the chest acquired. RADIATION DOSE: NA LIMITATIONS: None. FINDINGS: LUNGS AND PLEURA: Cannot exclude mild pulmonary edema. MEDIASTINUM AND HILAR STRUCTURES: No masses. Contour normal. HEART AND VASCULAR STRUCTURES: Heart normal in size. Normal vasculature. BONES: No acute findings. HARDWARE: None in the chest. OTHER: No other significant finding. IMPRESSION: Cannot exclude mild pulmonary edema. TECHNICAL DOCUMENTATION: JOB ID: [id number] [employer]- All Rights Reserved Reading location - IP/workstation name: [email or web address]
[2018-10-16 20:16] LABS: TROPONIN I 0.016 ng/mL
[2018-10-16 20:53] LABS: VENOUS BLOOD BASE EXCESS 6.2 mmol/L; VENOUS BLOOD HCO3 31.9 mmol/L (20-32); VENOUS BLOOD PCO2 50.6 mmHg (35-63); VENOUS BLOOD PH 7.42 (7.30-7.42)
[2018-10-17] MEDS ORDERED: HYDRALAZINE HCL INJ/PF 20 MG/1 ML SDV IV PRN (01:36)
[2018-10-17] MEDS ORDERED: ONDANSETRON HCL INJ/PF 4 MG/2 ML SDV IV PRN ×2 (03:21→13:00)
[2018-10-17] MEDS ORDERED: MAGNESIUM HYDROXIDE SUSP 30 ML UDCUP PO PRN (03:21)
[2018-10-17] MEDS ORDERED: MAG HYDROX/AL HYDROX/SIMETH SUSP 30 ML UDCUP PO PRN (03:21)
[2018-10-17] MEDS ORDERED: ACETAMINOPHEN 325 MG TABLET PO PRN (03:25)
[2018-10-17] MEDS: DILTIAZEM HCL 30 MG TABLET PO SCH ×3 (05:13→21:29)
[2018-10-17] MEDS: HEPARIN SOD (PORCINE) 5,000 UNIT/ML 1 ML SYRINGE SUBCUT SCH ×3 (05:14→21:29)
[2018-10-17] MEDS: CEFAZOLIN 1 GM/D5W RTU 1 GM/50 ML RTUPB IV SCH ×3 (05:16→17:27)
--- NOTE | 2018-10-17 05:21 | PDOC H&P ---
History of Present Illness Admission Date/PCP: 10/16/18 22:11 RANDA AGUIRRE MD Patient complains of: Hallucinations History of Present Illness: JEFFREY GORDILLO is a 88 year old male who presented to the emergency room with his family who were expressing concern for the patient's recent onset hallucinations. Family members indicate that the patient complains of having ants crawling all over him and he also has been more somnolent since his return home on October 14 from a hospitalization here at [facility] for a urinary tract infection. He denies any current complaints and appears to be grossly alert and oriented on exam and is responsive to verbal stimuli in an appropriate manner. He does not confirm or deny the family's complaints of his hallucinations and increased somnolence. His reports that he is unable to get up and walk at home and she is also concerned about this. In the emergency room he was found to have a slightly elevated white blood count 15,000 but his evaluation was otherwise unremarkable including a CT scan of the head. He was subsequently admitted for further evaluation and treatment. Past Medical History Cardiac Medical History: Reports: Atrial Fibrillation, Congestive Heart Failure, Hyperlipidema, Hypertension Pulmonary Medical History: Reports: Chronic Obstructive Pulmonary Disease (COPD) EENT Medical History: Denies: Cataracts, Ears - Hearing aids Neurological Medical History: Denies: Hemorrhagic CVA, Ischemic CVA, Multiple Sclerosis, Seizures Endocrine Medical History: Denies: Diabetes Mellitus Type 1, Diabetes Mellitus Type 2, Hyperthyroidism, Hypothyroidism Renal/ Medical History: Reports: Other - Recent urinary tract infection due to E. coli, benign prostatic hypertrophy Denies: Chronic Kidney Disease, Nephrolithiasis Malignancy Medical History: Reports: None GI Medical History: Denies: Cirrhosis, Hepatitis Musculoskeltal Medical History: Reports: Arthritis Denies: Gout Skin Medical History: Denies: Eczema, Psoriasis Psychiatric Medical History: Reports: Tobacco Dependency Denies: Alcohol Dependency, Depression, Substance Abuse Traumatic Medical History: Reports: None Hematology: Denies: Anemia, Bleeding Tendencies Infectious Medical History: Reports: None Past Surgical History Past Surgical History: Reports: Orthopedic Surgery - left knee replacement, Other - VATS 2012 Social History Information Source: Patient, Relative - [id number] Lives with: Spouse/Significant other Smoking Status: Former Smoker Frequency of Alcohol Use: None Hx Recreational Drug Use: No Drugs: None Hx Prescription Drug Abuse: No - Advance Directive Resuscitation Status: Full Code Surrogate healthcare decision maker:: Joan Gordillo Family History Family History: CAD, Hypertension Parental Family History Reviewed: Yes Children Family History Reviewed: No Sibling(s) Family History Reviewed.: Yes Medication/Allergy Home Medications: Tamsulosin HCl 0.4 mg PO DAILY 10/22/12 Magnesium Oxide [Mag-Ox 400 mg Tablet] 400 mg PO DAILY 10/10/18 Metolazone [Zaroxolyn 2.5 mg Tablet] 2.5 mg PO QHS 10/10/18 Atorvastatin Calcium [Lipitor 10 mg Tablet] 10 mg PO QHS 10/11/18 Fenofibrate Nanocrystallized [Tricor 145 mg Tablet] 145 mg PO DAILY 10/11/18 Furosemide [Lasix 40 mg Tablet] 40 mg PO DAILY 10/11/18 Meloxicam [Mobic] 7.5 mg PO DAILY 10/11/18 Metoprolol Succinate [Toprol Xl 50 mg Tab.sr] 50 mg PO DAILY 10/11/18 Acetaminophen [Tylenol 325 mg Tablet] 650 mg PO Q4HP PRN tablet 10/13/18 Aspirin [Aspirin 81 mg Chewable Tablet] 81 mg PO DAILY #30 tab.chew 10/13/18 Ciprofloxacin HCl [Cipro 500 mg Tablet] 500 mg PO Q12 #14 tablet 10/13/18 Diltiazem HCl [Cardizem 30 mg Tablet] 30 mg PO Q8 #90 tablet 10/13/18 Docusate Sodium [Colace 100 mg Capsule] 100 mg PO DAILY capsule 10/13/18 Allergies/Adverse Reactions: No Known Allergies Allergy (Verified 10/16/18 14:14) Review of Systems Constitutional: PRESENT: weakness - Unable to ambulate per and family. ABSENT: chills, fever(s) Eyes: ABSENT: visual disturbances, other - Ocular pain Ears: ABSENT: hearing changes, other - Ear pain Nose, Mouth, and Throat: ABSENT: mouth pain, sore throat Cardiovascular: ABSENT: chest pain, palpitations Respiratory: ABSENT: cough, dyspnea Gastrointestinal: ABSENT: abdominal pain, constipation, diarrhea, nausea, vomiting Genitourinary: ABSENT: dysuria, hematuria Musculoskeletal: ABSENT: joint swelling, muscle weakness Integumentary: ABSENT: pruritus, rash Neurological: PRESENT: confusion, weakness - Unable to ambulate. ABSENT: convulsions, focal weakness, memory loss, syncope Psychiatric: PRESENT: as per HPI, hallucinations. ABSENT: anxiety, depression Endocrine: ABSENT: cold intolerance, heat intolerance Hematologic/Lymphatic: ABSENT: easy bleeding, easy bruising Physical Exam Vital Signs: Temp Pulse Resp BP Pulse Ox 98.1 F 69 18 137/71 H 93 10/16/18 14:39 10/16/18 14:39 10/16/18 22:00 10/16/18 21:58 10/16/18 21:58 Intake & Output 10/14/18 10/15/18 10/16/18 23:59 23:59 23:59 Weight 102.9 kg General appearance: PRESENT: no acute distress, cooperative, obese Head exam: PRESENT: atraumatic, normocephalic Eye exam: ABSENT: conjunctival injection, scleral icterus Ear exam: PRESENT: normal external ear exam. ABSENT: bleeding, drainage Mouth exam: PRESENT: dry mucosa, neck supple Neck exam: ABSENT: JVD, thyromegaly, tracheal deviation Respiratory exam: PRESENT: clear to auscultation angela, symmetrical, unlabored Cardiovascular exam: PRESENT: irregular rhythm - Irregularly irregular rate and rhythm. ABSENT: clicks, gallop, rubs Pulses: PRESENT: normal radial pulses, normal dorsalis pedis pul GI/Abdominal exam: PRESENT: normal bowel sounds, soft Rectal exam: PRESENT: deferred Extremities exam: ABSENT: joint swelling, pedal edema Musculoskeletal exam: ABSENT: deformity, dislocation Neurological exam: PRESENT: alert, oriented to person, oriented to place, oriented to time, CN II-XII grossly intact. ABSENT: oriented to situation - Seems to be somewhat confused times about whether things did or did not happen, motor sensory deficit Psychiatric exam: PRESENT: appropriate affect, normal mood Skin exam: PRESENT: dry, intact, warm. ABSENT: jaundice, rash, urticaria Results Laboratory Results: 10/16/18 15:47 10/16/18 15:47 10/16/18 10/16/18 10/16/18 15:47 15:47 15:47 WBC 15.7 H RBC 3.93 L Hgb 11.9 L Hct 36.0 L MCV 92 MCH 30.3 MCHC 33.1 RDW 15.3 H Plt Count 320 Seg Neutrophils % Not Reportable Lymphocytes % Not Reportable Monocytes % Not Reportable Eosinophils % Not Reportable Basophils % Not Reportable Absolute Neutrophils Not Reportable Absolute Lymphocytes Not Reportable Absolute Monocytes Not Reportable Absolute Eosinophils Not Reportable Absolute Basophils Not Reportable VBG pH VBG pCO2 VBG HCO3 VBG Base Excess Sodium 140.8 Potassium 3.9 Chloride 97 L Carbon Dioxide 30 Anion Gap 14 BUN 23 H Creatinine 0.83 Est GFR ( Amer) > 60 Est GFR (Non-Af Amer) > 60 Glucose 102 Calcium 10.1 Magnesium 1.4 L Total Bilirubin 0.7 AST 36 ALT 65 Alkaline Phosphatase 102 Ammonia Total Protein 5.9 L Albumin 3.4 L Urine Color Urine Appearance Urine pH Ur Specific [place] Urine Protein Urine Glucose (UA) Urine Ketones Urine Blood Urine Nitrite Ur Leukocyte Esterase Urine WBC (Auto) Urine RBC (Auto) 10/16/18 10/16/18 10/16/18 18:47 20:20 20:20 WBC RBC Hgb Hct MCV MCH MCHC RDW Plt Count Seg Neutrophils % Lymphocytes % Monocytes % Eosinophils % Basophils % Absolute Neutrophils Absolute Lymphocytes Absolute Monocytes Absolute Eosinophils Absolute Basophils VBG pH 7.42 VBG pCO2 50.6 VBG HCO3 31.9 VBG Base Excess 6.2 Sodium Potassium Chloride Carbon Dioxide Anion Gap BUN Creatinine Est GFR ( Amer) Est GFR (Non-Af Amer) Glucose Calcium Magnesium Total Bilirubin AST ALT Alkaline Phosphatase Ammonia 28.4 Total Protein Albumin Urine Color STRAW Urine Appearance CLEAR Urine pH 5.0 Ur Specific [place] 1.009 Urine Protein NEGATIVE Urine Glucose (UA) NEGATIVE Urine Ketones NEGATIVE Urine Blood NEGATIVE Urine Nitrite NEGATIVE Ur Leukocyte Esterase NEGATIVE Urine WBC (Auto) 1 Urine RBC (Auto) 1 10/16/18 15:47 Troponin I 0.016 NT-Pro-B Natriuret Pep 2930 H Impressions: Head CT 10/16/18 15:22 IMPRESSION: 1. Chronic age related changes without evidence of acute intracranial process. 2. Mucosal sinus disease greatest within the right frontal and maxillary sinus and ethmoid air cells. EVIDENCE OF ACUTE STROKE: NO. Chest X-Ray 10/16/18 19:11 IMPRESSION: Cannot exclude mild pulmonary edema. Assessment and Plan - Diagnosis (1) Psychosis Qualifiers: Psychosis type: unspecified psychosis type Qualified Code(s): F29 - Unspecified psychosis not due to a substance or known physiological condition Is this a current diagnosis for this admission?: Yes Plan: Patient has an acute mild psychosis which will be addressed by supportive cares and will try to avoid utilizing medications if his symptoms are resolving quickly. Should he develop behavioral symptomology Haldol or other agents will be employed as needed. A daily CBC, metabolic profile and magnesium level be used as part of monitoring the patient's therapeutic course and observing for changes that could precipitate further symptoms. (2) Leukocytosis Qualifiers: Leukocytosis type: unspecified Qualified Code(s): D72.829 - Elevated white blood cell count, unspecified Is this a current diagnosis for this admission?: Yes Plan: Patient's leukocytosis will be monitored with a daily CBC. (3) Chronic atrial fibrillation Is this a current diagnosis for this admission?: Yes Plan: Patient be continued on his usual medication for chronic atrial fibrillation. (4) Hyperlipidemia Is this a current diagnosis for this admission?: Yes Plan: Patient will be continued on his usual hyperlipidemia regiment. (5) HTN (hypertension) Qualifiers: Hypertension type: essential hypertension Qualified Code(s): I10 - Essential (primary) hypertension Is this a current diagnosis for this admission?: Yes Plan: Patient be continued on his usual antihypertensive regiment. - Time Time Spent with patient: 25-34 minutes Medications reviewed and adjusted accordingly: Yes Anticipated discharge: SNF - Inpatient Certification Based on my medical assessment, after consideration of the patient's comorbidities, presenting symptoms, or acuity I expect that the services needed warrant INPATIENT care.: Yes I certify that my determination is in accordance with my understanding of Medicare's requirements for reasonable and necessary INPATIENT services [42 CFR 412.3e].: Yes Medical Necessity: Failure to Improve With Outpatient Therapy, Need Close Monitoring Due to Risk of Patient Decompensation, Risk of Complication if Not Cared For in Hospital
[2018-10-17] MEDS: METOPROLOL SUCCINATE 50 MG TAB.SR.24H PO SCH (09:28)
[2018-10-17] MEDS: FAMOTIDINE 20 MG TABLET PO SCH ×2 (09:29→21:30)
[2018-10-17] MEDS: MAGNESIUM OXIDE 400 MG TABLET PO SCH (09:29)
[2018-10-17] MEDS: FUROSEMIDE 40 MG TABLET PO SCH (09:29)
[2018-10-17] MEDS: TAMSULOSIN HCL 0.4 MG CAP.SR.24H PO SCH (09:29)
[2018-10-17] MEDS: DOCUSATE SODIUM 100 MG CAPSULE PO SCH (09:29)
[2018-10-17 10:43] LABS: HEMATOCRIT 37.9 % (37.9-51.0); HEMOGLOBIN 12.7 g/dL (13.5-17.0); MEAN CORPUSCULAR HEMOGLOBIN 30.5 pg (27.0-33.4); MEAN CORPUSCULAR HGB CONC 33.4 g/dL (32.0-36.0); MEAN CORPUSCULAR VOLUME 91 fl (80-97); PLATELET COUNT 265 10^3/uL (150-450); RED BLOOD COUNT 4.15 10^6/uL (4.35-5.55); RED CELL DISTRIBUTION WIDTH 14.7 % (11.5-14.0); WHITE BLOOD COUNT 14.1 10^3/uL (4.0-10.5)
[2018-10-17] MEDS: FENOFIBRATE NANOCRYSTALLIZED 145 MG TABLET PO SCH (10:46)
[2018-10-17 11:08] LABS: ALANINE AMINOTRANSFERASE 44 U/L (21-72); ALBUMIN 3.4 g/dL (3.5-5.0); ALKALINE PHOSPHATASE 90 U/L (38-126); ANION GAP 16 (5-19); ASPARTATE AMINO TRANSFERASE 27 U/L (17-59); BILIRUBIN,DIRECT 0.4 mg/dL (0.0-0.4); BILIRUBIN,TOTAL 0.7 mg/dL (0.2-1.3); BLOOD UREA NITROGEN 21 mg/dL (7-20); CALCIUM 10.1 mg/dL (8.4-10.2); CARBON DIOXIDE 31 mmol/L (22-30); CHLORIDE 93 mmol/L (98-107); GLUCOSE 160 mg/dL (75-110); POTASSIUM 3.4 mmol/L (3.6-5.0); SODIUM 139.7 mmol/L (137-145); TOTAL PROTEIN 5.8 g/dL (6.3-8.2)
[2018-10-17 11:10] LABS: ABSOLUTE LYMPHOCYTES# (MANUAL) 2.1 10^3/uL (0.5-4.7); ABSOLUTE MONOCYTES # (MANUAL) 0.4 10^3/uL (0.1-1.4); ABSOLUTE NEUTROPHILS# (MANUAL) 11.6 10^3/uL (1.7-8.2); BAND NEUTROPHILS % (MANUAL) 5 % (3-5); BASOPHILS % (MANUAL) 0 % (0-2); EOSINOPHILS % (MANUAL) 0 % (0-6); LYMPHOCYTES % (MANUAL) 15 % (13-45); METAMYELOCYTES % (MANUAL) 1 % (0); MONOCYTES % (MANUAL) 3 % (3-13); SEGMENTED NEUTROPHILS % (MAN) 74 % (42-78); TOTAL CELLS COUNTED 100
[2018-10-17 11:11] LABS: ANISOCYTOSIS SLIGHT; PLATELET COMMENT ADEQUATE; POIKILOCYTOSIS SLIGHT; POLYCHROMASIA SLIGHT; TEAR DROP CELLS SLIGHT
[2018-10-17 11:12] LABS: MYELOCYTES % (MANUAL) 2 % (0)
--- NOTE | 2018-10-17 11:31 | PDOC PROGRESS REPORT ---
Subjective Progress Note for:: 10/17/18 Subjective:: 88 year old male who presented to the emergency room with his family who were expressing concern for the patient's recent onset hallucinations. Family members indicate that the patient complains of having ants crawling all over him and he also has been more somnolent since his return home on October 14 from a hospitalization here at [facility] for a urinary tract infection. He denies any current complaints and appears to be grossly alert and oriented on exam and is responsive to verbal stimuli in an appropriate manner. He does not confirm or deny the family's complaints of his hallucinations and increased somnolence. His reports that he is unable to get up and walk at home and she is also concerned about this. In the emergency room he was found to have a slightly elevated white blood count 15,000 but his evaluation was otherwise unremarkable including a CT scan of the head. He was subsequently admitted for further evaluation and treatment. [id number]-old male recently discharged from the hospital admitted for hallucinations and the admitting diagnosis is psychosis. No acute events since the admission. Alert and awake communicating okay. He was able to give me the date of and he also told me he is in [facility]. And is also able to give his home address without any problem. Reason For Visit: PSYCHOSIS Physical Exam Vital Signs: Temp Pulse Resp BP Pulse Ox 97.6 F 29 L 18 151/65 H 97 10/17/18 02:59 10/17/18 02:59 10/17/18 02:59 10/17/18 02:59 10/17/18 02:59 Intake & Output 10/16/18 10/17/18 10/18/18 06:59 06:59 06:59 Intake Total 50 Balance 50 Weight 102.9 kg General appearance: PRESENT: no acute distress, obese Head exam: PRESENT: atraumatic Eye exam: PRESENT: PERRLA Mouth exam: PRESENT: moist, tongue midline Teeth exam: PRESENT: poor dentation Neck exam: ABSENT: carotid bruit, JVD, lymphadenopathy, thyromegaly Respiratory exam: PRESENT: clear to auscultation angela. ABSENT: rales, rhonchi, wheezes Cardiovascular exam: PRESENT: RRR. ABSENT: diastolic murmur, rubs, systolic murmur GI/Abdominal exam: PRESENT: normal bowel sounds, soft. ABSENT: distended, guarding, mass, organolmegaly, rebound, tenderness Rectal exam: PRESENT: deferred Neurological exam: PRESENT: alert, awake, oriented to person, oriented to place, oriented to time, oriented to situation, CN II-XII grossly intact. ABSENT: motor sensory deficit Psychiatric exam: PRESENT: appropriate affect, normal mood. ABSENT: homicidal ideation, suicidal ideation Results Laboratory Results: 10/17/18 09:25 10/17/18 09:25 10/16/18 10/16/18 10/16/18 15:47 15:47 15:47 WBC 15.7 H RBC 3.93 L Hgb 11.9 L Hct 36.0 L MCV 92 MCH 30.3 MCHC 33.1 RDW 15.3 H Plt Count 320 Seg Neutrophils % Not Reportable Lymphocytes % Not Reportable Monocytes % Not Reportable Eosinophils % Not Reportable Basophils % Not Reportable Absolute Neutrophils Not Reportable Absolute Lymphocytes Not Reportable Absolute Monocytes Not Reportable Absolute Eosinophils Not Reportable Absolute Basophils Not Reportable VBG pH VBG pCO2 VBG HCO3 VBG Base Excess Sodium 140.8 Potassium 3.9 Chloride 97 L Carbon Dioxide 30 Anion Gap 14 BUN 23 H Creatinine 0.83 Est GFR ( Amer) > 60 Est GFR (Non-Af Amer) > 60 Glucose 102 Calcium 10.1 Magnesium 1.4 L Total Bilirubin 0.7 AST 36 ALT 65 Alkaline Phosphatase 102 Ammonia Total Protein 5.9 L Albumin 3.4 L Urine Color Urine Appearance Urine pH Ur Specific [place] Urine Protein Urine Glucose (UA) Urine Ketones Urine Blood Urine Nitrite Ur Leukocyte Esterase Urine WBC (Auto) Urine RBC (Auto) 10/16/18 10/16/18 10/16/18 18:47 20:20 20:20 WBC RBC Hgb Hct MCV MCH MCHC RDW Plt Count Seg Neutrophils % Lymphocytes % Monocytes % Eosinophils % Basophils % Absolute Neutrophils Absolute Lymphocytes Absolute Monocytes Absolute Eosinophils Absolute Basophils VBG pH 7.42 VBG pCO2 50.6 VBG HCO3 31.9 VBG Base Excess 6.2 Sodium Potassium Chloride Carbon Dioxide Anion Gap BUN Creatinine Est GFR ( Amer) Est GFR (Non-Af Amer) Glucose Calcium Magnesium Total Bilirubin AST ALT Alkaline Phosphatase Ammonia 28.4 Total Protein Albumin Urine Color STRAW Urine Appearance CLEAR Urine pH 5.0 Ur Specific [place] 1.009 Urine Protein NEGATIVE Urine Glucose (UA) NEGATIVE Urine Ketones NEGATIVE Urine Blood NEGATIVE Urine Nitrite NEGATIVE Ur Leukocyte Esterase NEGATIVE Urine WBC (Auto) 1 Urine RBC (Auto) 1 10/17/18 10/17/18 09:25 09:25 WBC 14.1 H RBC 4.15 L Hgb 12.7 L Hct 37.9 MCV 91 MCH 30.5 MCHC 33.4 RDW 14.7 H Plt Count 265 Seg Neutrophils % Not Reportable Lymphocytes % Not Reportable Monocytes % Not Reportable Eosinophils % Not Reportable Basophils % Not Reportable Absolute Neutrophils Not Reportable Absolute Lymphocytes Not Reportable Absolute Monocytes Not Reportable Absolute Eosinophils Not Reportable Absolute Basophils Not Reportable VBG pH VBG pCO2 VBG HCO3 VBG Base Excess Sodium 139.7 Potassium 3.4 L Chloride 93 L Carbon Dioxide 31 H Anion Gap 16 BUN 21 H Creatinine 0.80 Est GFR ( Amer) > 60 Est GFR (Non-Af Amer) > 60 Glucose 160 H Calcium 10.1 Magnesium 1.4 L Total Bilirubin 0.7 AST 27 ALT 44 Alkaline Phosphatase 90 Ammonia Total Protein 5.8 L Albumin 3.4 L Urine Color Urine Appearance Urine pH Ur Specific [place] Urine Protein Urine Glucose (UA) Urine Ketones Urine Blood Urine Nitrite Ur Leukocyte Esterase Urine WBC (Auto) Urine RBC (Auto) 10/16/18 15:47 Troponin I 0.016 NT-Pro-B Natriuret Pep 2930 H Impressions: Head CT 10/16/18 15:22 IMPRESSION: 1. Chronic age related changes without evidence of acute intracranial process. 2. Mucosal sinus disease greatest within the right frontal and maxillary sinus and ethmoid air cells. EVIDENCE OF ACUTE STROKE: NO. Chest X-Ray 10/16/18 19:11 IMPRESSION: Cannot exclude mild pulmonary edema. Assessment and Plan - Diagnosis (1) Psychosis Qualifiers: Psychosis type: unspecified psychosis type Qualified Code(s): F29 - Unspecified psychosis not due to a substance or known physiological condition Is this a current diagnosis for this admission?: Yes Plan: Patient has an acute mild psychosis which will be addressed by supportive cares and will try to avoid utilizing medications if his symptoms are resolving quickly. Should he develop behavioral symptomology Haldol or other agents will be employed as needed. A daily CBC, metabolic profile and magnesium level be used as part of monitoring the patient's therapeutic course and observing for changes that could precipitate further symptoms. 10/17/2018-patient is admitted with acute psychosis. On examination this morning alert and awake communicating very well. No acute events in the last 24 hours. Comfortably in the bed. Temperature is 97.6. Managed to closely monitor his mental status. Patient's WBC count coming down to 41,100. (2) Chronic atrial fibrillation Is this a current diagnosis for this admission?: Yes Plan: Patient be continued on his usual medication for chronic atrial fibrillation. 10/17/2018-patient has history of chronic atrial fibrillation. Plan is to resume his diltiazem. Heart rate is 78. Rate controlled. (3) Leukocytosis Qualifiers: Leukocytosis type: unspecified Qualified Code(s): D72.829 - Elevated white blood cell count, unspecified Is this a current diagnosis for this admission?: Yes Plan: Patient's leukocytosis will be monitored with a daily CBC. 10/17/2018-patient came in with a WBC count of 15,000 presently WBC count is 14,100 patient is on IV cefazolin. Urine cultures and blood cultures are negati ve so far. (4) HTN (hypertension) Qualifiers: Hypertension type: essential hypertension Qualified Code(s): I10 - Essential (primary) hypertension Is this a current diagnosis for this admission?: Yes Plan: Patient be continued on his usual antihypertensive regiment. 10/17/2018-patient has history of chronic hypertension blood pressure today is 151/65. Home medications are resumed. - Time Time Spent with patient: 15-24 minutes Medications reviewed and adjusted accordingly: Yes Anticipated discharge: SNF
[2018-10-17] MEDS: METOLAZONE 2.5 MG TABLET PO SCH (21:29)
[2018-10-17] MEDS: ATORVASTATIN CALCIUM 10 MG TABLET PO SCH (21:30)
[2018-10-18] MEDS: CEFAZOLIN 1 GM/D5W RTU 1 GM/50 ML RTUPB IV SCH ×4 (00:55→17:38)
[2018-10-18] MEDS: HEPARIN SOD (PORCINE) 5,000 UNIT/ML 1 ML SYRINGE SUBCUT SCH ×3 (05:32→21:28)
[2018-10-18] MEDS: DILTIAZEM HCL 30 MG TABLET PO SCH ×3 (05:33→21:28)
[2018-10-18 06:56] LABS: HEMATOCRIT 36.6 % (37.9-51.0); HEMOGLOBIN 12.1 g/dL (13.5-17.0); MEAN CORPUSCULAR HEMOGLOBIN 30.3 pg (27.0-33.4); MEAN CORPUSCULAR HGB CONC 33.2 g/dL (32.0-36.0); MEAN CORPUSCULAR VOLUME 91 fl (80-97); PLATELET COUNT 238 10^3/uL (150-450); RED BLOOD COUNT 4.01 10^6/uL (4.35-5.55); RED CELL DISTRIBUTION WIDTH 14.9 % (11.5-14.0); WHITE BLOOD COUNT 16.4 10^3/uL (4.0-10.5)
[2018-10-18 07:12] LABS: ALANINE AMINOTRANSFERASE 36 U/L (21-72); ALBUMIN 3.2 g/dL (3.5-5.0); ALKALINE PHOSPHATASE 77 U/L (38-126); ANION GAP 10 (5-19); ASPARTATE AMINO TRANSFERASE 22 U/L (17-59); BILIRUBIN,DIRECT 0.4 mg/dL (0.0-0.4); BILIRUBIN,TOTAL 0.6 mg/dL (0.2-1.3); BLOOD UREA NITROGEN 22 mg/dL (7-20); CALCIUM 10.1 mg/dL (8.4-10.2); CARBON DIOXIDE 33 mmol/L (22-30); CHLORIDE 92 mmol/L (98-107); GLUCOSE 104 mg/dL (75-110); POTASSIUM 3.9 mmol/L (3.6-5.0); SODIUM 134.5 mmol/L (137-145); TOTAL PROTEIN 5.7 g/dL (6.3-8.2)
[2018-10-18 07:23] LABS: FREE T3 2.89 pg/mL (2.77-5.27); FREE T4 (FREE THYROXINE) 1.49 ng/dL (0.78-2.19)
[2018-10-18 07:26] LABS: ABSOLUTE MONOCYTES # (MANUAL) 0.8 10^3/uL (0.1-1.4); ABSOLUTE NEUTROPHILS# (MANUAL) 13.1 10^3/uL (1.7-8.2); BAND NEUTROPHILS % (MANUAL) 6 % (3-5); BASOPHILS % (MANUAL) 1 % (0-2); EOSINOPHILS % (MANUAL) 2 % (0-6); LYMPHOCYTES % (MANUAL) 12 % (13-45); MONOCYTES % (MANUAL) 5 % (3-13); SEGMENTED NEUTROPHILS % (MAN) 74 % (42-78); TOTAL CELLS COUNTED 100
[2018-10-18 07:27] LABS: ANISOCYTOSIS SLIGHT
[2018-10-18 07:28] LABS: PLATELET COMMENT ADEQUATE
[2018-10-18 07:37] LABS: THYROID STIMULATING HORMONE 2.07 uIU/mL (0.47-4.68)
[2018-10-18] MEDS ORDERED: LORAZEPAM INJ 2 MG/1 ML VIAL IV PRN (10:27)
[2018-10-18] MEDS: FUROSEMIDE 40 MG TABLET PO SCH (11:29)
[2018-10-18] MEDS: TAMSULOSIN HCL 0.4 MG CAP.SR.24H PO SCH (11:30)
[2018-10-18] MEDS: MAGNESIUM OXIDE 400 MG TABLET PO SCH (11:30)
[2018-10-18] MEDS: METOPROLOL SUCCINATE 50 MG TAB.SR.24H PO SCH (11:30)
[2018-10-18] MEDS: FAMOTIDINE 20 MG TABLET PO SCH ×2 (11:30→21:28)
[2018-10-18] MEDS: ASPIRIN 81 MG TABLET, CHEWABLE PO SCH (11:30)
[2018-10-18] MEDS: DOCUSATE SODIUM 100 MG CAPSULE PO SCH (11:31)
[2018-10-18] MEDS: FENOFIBRATE NANOCRYSTALLIZED 145 MG TABLET PO SCH (11:31)
[2018-10-18] MEDS: FEBUXOSTAT 40 MG TABLET PO SCH (11:32)
[2018-10-18 11:40] LABS: PATH REVIEW PATHOLOGIST REVIEWED
--- NOTE | 2018-10-18 12:34 | PDOC PROGRESS REPORT ---
Subjective Progress Note for:: 10/18/18 Subjective:: 88 year old male who presented to the emergency room with his family who were expressing concern for the patient's recent onset hallucinations. Family members indicate that the patient complains of having ants crawling all over him and he also has been more somnolent since his return home on October 14 from a hospitalization here at [facility] for a urinary tract infection. He denies any current complaints and appears to be grossly alert and oriented on exam and is responsive to verbal stimuli in an appropriate manner. He does not confirm or deny the family's complaints of his hallucinations and increased somnolence. His reports that he is unable to get up and walk at home and she is also concerned about this. In the emergency room he was found to have a slightly elevated white blood count 15,000 but his evaluation was otherwise unremarkable including a CT scan of the head. He was subsequently admitted for further evaluation and treatment. 10/[id number]-lsin-old male recently discharged from the hospital admitted for hallucinations and the admitting diagnosis is psychosis. No acute events since the admission. Alert and awake communicating okay. He was able to give me the date of and he also told me he is in [facility]. And is also able to give his home address without any problem. [id number]-tsee-old male recently discharged from the hospital admitted for hallucinations and admitting diagnosis acute psychosis. The nurse called me this morning and said patient was agitated not following the commands try to come out of the bed going to the restroom walking around the tried to convince him to get into the bed he refused to follow the commands refusing to take the medications security was called because of concerns about patient safety and we started him on Ativan 1 mg IV every 4 PRN for agitation. I went to see the patient patient is comfortably in the chair communicating well he is saying he is not in heart he give his data but he no way he easily give the present location and is also gave his home address his and name. psych consult was requested for further assessment. Reason For Visit: PSYCHOSIS Physical Exam Vital Signs: Temp Pulse Resp BP Pulse Ox 97.5 F 82 14 140/59 H 98 10/18/18 08:25 10/18/18 08:25 10/18/18 08:25 10/18/18 08:25 10/18/18 08:25 Intake & Output 10/17/18 10/18/18 10/19/18 06:59 06:59 06:59 Intake Total 50 957 Output Total 50 Balance 50 907 Weight 102.9 kg 104.2 kg General appearance: PRESENT: no acute distress, obese Head exam: PRESENT: atraumatic Eye exam: PRESENT: PERRLA Ear exam: PRESENT: normal external ear exam Mouth exam: PRESENT: moist, tongue midline Teeth exam: PRESENT: poor dentation Neck exam: ABSENT: carotid bruit, JVD, lymphadenopathy, thyromegaly Respiratory exam: PRESENT: decreased breath sounds Cardiovascular exam: PRESENT: RRR. ABSENT: diastolic murmur, rubs, systolic murmur GI/Abdominal exam: PRESENT: normal bowel sounds, soft. ABSENT: distended, guarding, mass, organolmegaly, rebound, tenderness Rectal exam: PRESENT: deferred Extremities exam: PRESENT: full ROM. ABSENT: calf tenderness, clubbing, pedal edema Neurological exam: PRESENT: alert, awake, oriented to person, oriented to place, oriented to time, oriented to situation, CN II-XII grossly intact. ABSENT: motor sensory deficit Psychiatric exam: PRESENT: appropriate affect, normal mood. ABSENT: homicidal ideation, suicidal ideation Results Laboratory Results: 10/18/18 06:24 10/18/18 06:24 10/18/18 10/18/18 10/18/18 06:24 06:24 06:24 WBC 16.4 H RBC 4.01 L Hgb 12.1 L Hct 36.6 L MCV 91 MCH 30.3 MCHC 33.2 RDW 14.9 H Plt Count 238 Seg Neutrophils % Not Reportable Lymphocytes % Not Reportable Monocytes % Not Reportable Eosinophils % Not Reportable Basophils % Not Reportable Absolute Neutrophils Not Reportable Absolute Lymphocytes Not Reportable Absolute Monocytes Not Reportable Absolute Eosinophils Not Reportable Absolute Basophils Not Reportable Sodium Potassium Chloride Carbon Dioxide Anion Gap BUN Creatinine Est GFR ( Amer) Est GFR (Non-Af Amer) Glucose Calcium Magnesium 1.4 L Total Bilirubin AST ALT Alkaline Phosphatase Total Protein Albumin TSH 2.07 Free T4 1.49 Free T3 pg/mL 2.89 10/18/18 06:24 WBC RBC Hgb Hct MCV MCH MCHC RDW Plt Count Seg Neutrophils % Lymphocytes % Monocytes % Eosinophils % Basophils % Absolute Neutrophils Absolute Lymphocytes Absolute Monocytes Absolute Eosinophils Absolute Basophils Sodium 134.5 L Potassium 3.9 Chloride 92 L Carbon Dioxide 33 H Anion Gap 10 BUN 22 H Creatinine 0.80 Est GFR ( Amer) > 60 Est GFR (Non-Af Amer) > 60 Glucose 104 Calcium 10.1 Magnesium Total Bilirubin 0.6 AST 22 ALT 36 Alkaline Phosphatase 77 Total Protein 5.7 L Albumin 3.2 L TSH Free T4 Free T3 pg/mL 10/16/18 18:47 Clean Catch Midstream Urine Culture - Final NO GROWTH 2 DAYS 10/16/18 15:47 Troponin I 0.016 NT-Pro-B Natriuret Pep 2930 H Impressions: Head CT 10/16/18 15:22 IMPRESSION: 1. Chronic age related changes without evidence of acute intracranial process. 2. Mucosal sinus disease greatest within the right frontal and maxillary sinus and ethmoid air cells. EVIDENCE OF ACUTE STROKE: NO. Chest X-Ray 10/16/18 19:11 IMPRESSION: Cannot exclude mild pulmonary edema. Assessment and Plan - Diagnosis (1) Psychosis Qualifiers: Psychosis type: unspecified psychosis type Qualified Code(s): F29 - Unspecified psychosis not due to a substance or known physiological condition Is this a current diagnosis for this admission?: Yes Plan: Patient has an acute mild psychosis which will be addressed by supportive cares and will try to avoid utilizing medications if his symptoms are resolving quickly. Should he develop behavioral symptomology Haldol or other agents will be employed as needed. A daily CBC, metabolic profile and magnesium level be used as part of monitoring the patient's therapeutic course and observing for changes that could precipitate further symptoms. 10/17/2018-patient is admitted with acute psychosis. On examination this morning alert and awake communicating very well. No acute events in the last 24 hours. Comfortably in the bed. Temperature is 97.6. Managed to closely monitor his mental status. Patient's WBC count coming down to 41,100. 10/18/2018-patient was admitted with a diagnosis of acute psychosis this morning patient was agitated and uncooperative patient was present on one-to-one observation psych consult was requested and started Ativan to 1 mg IV q. as needed at the time of my examination patient is comfortable in the bed communicating okay not in distress. (2) Chronic atrial fibrillation Is this a current diagnosis for this admission?: Yes Plan: Patient be continued on his usual medication for chronic atrial fibrillation. 10/17/2018-patient has history of chronic atrial fibrillation. Plan is to resume his diltiazem. Heart rate is 78. Rate controlled. 10/18/2018-patient has history of chronic atrial fibrillation he is on diltiazem heart rate is presently around 80. Well controlled. (3) Leukocytosis Qualifiers: Leukocytosis type: unspecified Qualified Code(s): D72.829 - Elevated white blood cell count, unspecified Is this a current diagnosis for this admission?: Yes Plan: Patient's leukocytosis will be monitored with a daily CBC. 10/17/2018-patient came in with a WBC count of 15,000 presently WBC count is 14,100 patient is on IV cefazolin. Urine cultures and blood cultures are negative so far. 10/18/2018-patient's WBC count is 16,400 urine cultures blood cultures are negative so far. Presently on IV cefazolin. Afebrile. With T-max of 97.7. (4) HTN (hypertension) Qualifiers: Hypertension type: essential hypertension Qualified Code(s): I10 - Essential (primary) hypertension Is this a current diagnosis for this admission?: Yes Plan: Patient be continued on his usual antihypertensive regiment. 10/17/2018-patient has history of chronic hypertension blood pressure today is 151/65. Home medications are resumed. 10/18/2018-patient has history of hypertension blood pressure is 130/65. Stable. Plan is to continue the present management. - Time Time Spent with patient: 15-24 minutes Medications reviewed and adjusted accordingly: Yes Anticipated discharge: Home
--- NOTE | 2018-10-18 14:01 | PSYCHOLOGICAL NOTE ---
Psych Note - Psych Note Date seen by psych provider: 10/18/18 Time seen by psych provider: 13:46 - Chart review at 1346. collateral at 1346. Psych Note: Presenting Problem: Psychosis (hallucinations such as ants crawling on him, increased somnolence, confusion). Patient is an elderly individual, had inpatient 10/11/18-10/14/18 for UTI and had head CT 10/16/18 language that is consistent with neurodegenerative processes. Appears no MH hx. Tried calling for verification. No answer. present at bedside. She denied patient MH Hx but noted his mother had Schizophrenia. Home med list all medical none psychiatric. Diagnosis: 799.59 (R41.9) Unspecified Neurocognitive Disorder Medication recommendations made by the psychiatric medical provider, Dr. Ximena MD., includes: Discontinue Ativan 1MG every 4 hours as needed Add Depakote DR 250MG twice a day for mood stabilization Add Buspar 5MG twice a day for anxiety/calming effect/depression/sleep Treating physicians should avoid use of antipsychotic (Haldol, Geodon, Zyprexa), benzodoazepines (Xanax, Klonopin, Ativan, Valium), some sleep aids (Trazodone, Ambien, Lunesta, Seroquel) and prolonged use of narcotic pain medications as well as steroids which can cause and/or exacerbate psychosis and aggression. Impression/Plan: Patient is cleared from acute psychiatric services. Head CT language is consistent with neurodegenerative processes. Dementia cannot be diagnosed solely off Head CT. Recommend neurology follow up. Medication regimen provided to manage mood, depression, anxiety. When patient is ready for discharge can connect with psychiatrist or PCM can continue medications and make neurology referral. Consulted with Dr. Friend regarding the management and care of patient. Attending Hospitalist made aware of recommendations.
[2018-10-18] MEDS: DIVALPROEX SODIUM 250 MG TABLET.DR PO SCH (17:38)
[2018-10-18] MEDS: BUSPIRONE HCL 10 MG TABLET PO SCH (17:39)
[2018-10-18] MEDS: ATORVASTATIN CALCIUM 10 MG TABLET PO SCH (21:28)
[2018-10-18] MEDS: METOLAZONE 2.5 MG TABLET PO SCH (21:28)
[2018-10-18] MEDS ORDERED: BUSPIRONE HCL 10 MG TABLET PO SCH (22:00)
[2018-10-19] MEDS: CEFAZOLIN 1 GM/D5W RTU 1 GM/50 ML RTUPB IV SCH ×5 (00:45→23:43)
[2018-10-19] MEDS: HEPARIN SOD (PORCINE) 5,000 UNIT/ML 1 ML SYRINGE SUBCUT SCH ×3 (05:05→21:45)
[2018-10-19] MEDS: DILTIAZEM HCL 30 MG TABLET PO SCH ×3 (05:05→21:45)
[2018-10-19 05:26] LABS: HEMATOCRIT 36.4 % (37.9-51.0); HEMOGLOBIN 11.9 g/dL (13.5-17.0); MEAN CORPUSCULAR HEMOGLOBIN 29.8 pg (27.0-33.4); MEAN CORPUSCULAR HGB CONC 32.8 g/dL (32.0-36.0); MEAN CORPUSCULAR VOLUME 91 fl (80-97); PLATELET COUNT 221 10^3/uL (150-450); RED BLOOD COUNT 4.01 10^6/uL (4.35-5.55); RED CELL DISTRIBUTION WIDTH 14.6 % (11.5-14.0); WHITE BLOOD COUNT 15.8 10^3/uL (4.0-10.5)
[2018-10-19 05:53] LABS: ANION GAP 13 (5-19); BLOOD UREA NITROGEN 25 mg/dL (7-20); CALCIUM 9.7 mg/dL (8.4-10.2); CARBON DIOXIDE 33 mmol/L (22-30); CHLORIDE 92 mmol/L (98-107); GLUCOSE 100 mg/dL (75-110); POTASSIUM 3.8 mmol/L (3.6-5.0); SODIUM 137.7 mmol/L (137-145)
[2018-10-19] MEDS: MAGNESIUM SULFATE/D5W 1 GM/100 ML RTUPB IV SCH ×2 (09:22→11:06)
[2018-10-19] MEDS: BUSPIRONE HCL 10 MG TABLET PO SCH ×2 (09:27→21:45)
[2018-10-19] MEDS: DOCUSATE SODIUM 100 MG CAPSULE PO SCH (09:28)
[2018-10-19] MEDS: FAMOTIDINE 20 MG TABLET PO SCH ×2 (09:28→21:45)
[2018-10-19] MEDS: MAGNESIUM OXIDE 400 MG TABLET PO SCH (09:28)
[2018-10-19] MEDS: ASPIRIN 81 MG TABLET, CHEWABLE PO SCH (09:28)
[2018-10-19] MEDS: TAMSULOSIN HCL 0.4 MG CAP.SR.24H PO SCH (09:28)
[2018-10-19] MEDS: DIVALPROEX SODIUM 250 MG TABLET.DR PO SCH ×2 (09:29→17:39)
[2018-10-19] MEDS: FENOFIBRATE NANOCRYSTALLIZED 145 MG TABLET PO SCH (09:30)
[2018-10-19] MEDS: FEBUXOSTAT 40 MG TABLET PO SCH (09:31)
--- NOTE | 2018-10-19 10:46 | PDOC PROGRESS REPORT ---
Subjective Progress Note for:: 10/19/18 Subjective:: 88 year old male who presented to the emergency room with his family who were expressing concern for the patient's recent onset hallucinations. Family members indicate that the patient complains of having ants crawling all over him and he also has been more somnolent since his return home on October 14 from a hospitalization here at [facility] for a urinary tract infection. He denies any current complaints and appears to be grossly alert and oriented on exam and is responsive to verbal stimuli in an appropriate manner. He does not confirm or deny the family's complaints of his hallucinations and increased somnolence. His reports that he is unable to get up and walk at home and she is also concerned about this. In the emergency room he was found to have a slightly elevated white blood count 15,000 but his evaluation was otherwise unremarkable including a CT scan of the head. He was subsequently admitted for further evaluation and treatment. 10/[id number]-sxdb-old male recently discharged from the hospital admitted for hallucinations and the admitting diagnosis is psychosis. No acute events since the admission. Alert and awake communicating okay. He was able to give me the date of and he also told me he is in [facility]. And is also able to give his home address without any problem. 10/[id number]-luqi-old male recently discharged from the hospital admitted for hallucinations and admitting diagnosis acute psychosis. The nurse called me this morning and said patient was agitated not following the commands try to come out of the bed going to the restroom walking around the tried to convince him to get into the bed he refused to follow the commands refusing to take the medications security was called because of concerns about patient safety and we started him on Ativan 1 mg IV every 4 PRN for agitation. I went to see the patient patient is comfortably in the chair communicating well he is saying he is not in heart he give his data but he no way he easily give the present location and is also gave his home address his and name. psych consult was requested for further assessment. 10/[id number]-yvsl-old male recently discharged from the hospital readmitted for hallucinations and admitting diagnosis was acute psychosis. Yesterday he was agitated confused and aggressive. Psych consult was done as per the recommendations started on Depakote and BuSpar patient is doing very well today. Comfortable in the chair communicating well. Not in distress. Reason For Visit: PSYCHOSIS Physical Exam Vital Signs: Temp Pulse Resp BP Pulse Ox 97.8 F 85 20 125/91 H 98 10/19/18 02:10 10/19/18 02:10 10/19/18 02:10 10/19/18 02:10 10/19/18 02:10 Intake & Output 10/18/18 10/19/18 10/20/18 06:59 06:59 06:59 Intake Total 957 564 Output Total 50 Balance 907 564 Weight 104.2 kg 107.2 kg General appearance: PRESENT: no acute distress Head exam: PRESENT: atraumatic Eye exam: PRESENT: PERRLA Mouth exam: PRESENT: moist, tongue midline Teeth exam: PRESENT: poor dentation Neck exam: ABSENT: carotid bruit, JVD, lymphadenopathy, thyromegaly Respiratory exam: PRESENT: decreased breath sounds Cardiovascular exam: PRESENT: RRR. ABSENT: diastolic murmur, rubs, systolic murmur GI/Abdominal exam: PRESENT: normal bowel sounds, soft. ABSENT: distended, guarding, mass, organolmegaly, rebound, tenderness Rectal exam: PRESENT: deferred Extremities exam: PRESENT: full ROM. ABSENT: calf tenderness, clubbing, pedal edema Neurological exam: PRESENT: alert, awake, oriented to person, oriented to place, oriented to time, oriented to situation, CN II-XII grossly intact. ABSENT: motor sensory deficit Psychiatric exam: PRESENT: appropriate affect, normal mood. ABSENT: homicidal ideation, suicidal ideation Results Laboratory Results: 10/19/18 04:37 10/19/18 04:37 10/19/18 10/19/18 04:37 04:37 WBC 15.8 H RBC 4.01 L Hgb 11.9 L Hct 36.4 L MCV 91 MCH 29.8 MCHC 32.8 RDW 14.6 H Plt Count 221 Sodium 137.7 Potassium 3.8 Chloride 92 L Carbon Dioxide 33 H Anion Gap 13 BUN 25 H Creatinine 0.87 Est GFR ( Amer) > 60 Est GFR (Non-Af Amer) > 60 Glucose 100 Calcium 9.7 Magnesium 1.5 L 10/16/18 18:47 Clean Catch Midstream Urine Culture - Final NO GROWTH 2 DAYS 10/16/18 15:47 Troponin I 0.016 NT-Pro-B Natriuret Pep 2930 H Impressions: Head CT 10/16/18 15:22 IMPRESSION: 1. Chronic age related changes without evidence of acute intracranial process. 2. Mucosal sinus disease greatest within the right frontal and maxillary sinus and ethmoid air cells. EVIDENCE OF ACUTE STROKE: NO. Chest X-Ray 10/16/18 19:11 IMPRESSION: Cannot exclude mild pulmonary edema. Assessment and Plan - Diagnosis (1) Psychosis Qualifiers: Psychosis type: unspecified psychosis type Qualified Code(s): F29 - Unspecified psychosis not due to a substance or known physiological condition Is this a current diagnosis for this admission?: Yes Plan: Patient has an acute mild psychosis which will be addressed by supportive cares and will try to avoid utilizing medications if his symptoms are resolving quickly. Should he develop behavioral symptomology Haldol or other agents will be employed as needed. A daily CBC, metabolic profile and magnesium level be used as part of monitoring the patient's therapeutic course and observing for changes that could precipitate further symptoms. 10/17/2018-patient is admitted with acute psychosis. On examination this morning alert and awake communicating very well. No acute events in the last 24 hours. Comfortably in the bed. Temperature is 97.6. Managed to closely monitor his mental status[place] [id number] 10/18/2018-patient was admitted with a diagnosis of acute psychosis this morning patient was agitated and uncooperative patient was present on one-to-one observation psych consult was requested and started Ativan to 1 mg IV q. as needed at the time of my examination patient is comfortable in the bed communicating okay not in distress. 10/19/2018-elderly male admitted for acute psychosis psych consult was done as per the recommendations started on BuSpar and Depakote they are working very well patient is doing extremely well today. Comfortable dementia communicating well. (2) Chronic atrial fibrillation Is this a current diagnosis for this admission?: Yes Plan: Patient be continued on his usual medication for chronic atrial fibrillation. 10/17/2018-patient has history of chronic atrial fibrillation. Plan is to resume his diltiazem. Heart rate is 78. Rate controlled. 10/18/2018-patient has history of chronic atrial fibrillation he is on diltiazem heart rate is presently around 80. Well controlled. 10/19/2018-patient has history of chronic atrial fibrillation on diltiazem. Heart rate today is 85. Rate controlled. (3) Leukocytosis Qualifiers: Leukocytosis type: unspecified Qualified Code(s): D72.829 - Elevated white blood cell count, unspecified Is this a current diagnosis for this admission?: Yes Plan: Patient's leukocytosis will be monitored with a daily CBC. 10/17/2018-patient came in with a WBC count of 15,000 presently WBC count is 14,100 patient is on IV cefazolin. Urine cultures and blood cultures are negative so far. 10/18/2018-patient's WBC count is 16,400 urine cultures blood cultures are negative so far. Presently on IV cefazolin. Afebrile. With T-max of 97.7. Patient is afebrile T-max is 97.8 count is 15,800 improving. Shunt is presently on IV cefazolin. Urine cultures and blood cultures are negative so far. (4) HTN (hypertension) Qualifiers: Hypertension type: essential hypertension Qualified Code(s): I10 - Essential (primary) hypertension Is this a current diagnosis for this admission?: Yes Plan: Patient be continued on his usual antihypertensive regiment. 10/17/2018-patient has history of chronic hypertension blood pressure today is 151/65. Home medications are resumed. 10/18/2018-patient has history of hypertension blood pressure is 130/65. Stable. Plan is to continue the present management. 10/19/2018-latest blood pressure is 125/91. Plan is to continue the present management. - Time Time Spent with patient: 15-24 minutes Medications reviewed and adjusted accordingly: Yes Anticipated discharge: Home
[2018-10-19] MEDS: METOPROLOL SUCCINATE 50 MG TAB.SR.24H PO SCH (13:24)
[2018-10-19] MEDS: FUROSEMIDE 40 MG TABLET PO SCH (13:24)
[2018-10-19] MEDS ORDERED: HYDRALAZINE HCL INJ/PF 20 MG/1 ML SDV IV PRN (18:40)
[2018-10-19] MEDS: ATORVASTATIN CALCIUM 10 MG TABLET PO SCH (21:45)
[2018-10-20] MEDS: CEFAZOLIN 1 GM/D5W RTU 1 GM/50 ML RTUPB IV SCH ×2 (05:25→11:10)
[2018-10-20] MEDS: HEPARIN SOD (PORCINE) 5,000 UNIT/ML 1 ML SYRINGE SUBCUT SCH ×3 (05:26→21:44)
[2018-10-20] MEDS: DILTIAZEM HCL 30 MG TABLET PO SCH ×3 (05:26→21:44)
[2018-10-20 05:58] LABS: HEMATOCRIT 35.7 % (37.9-51.0); HEMOGLOBIN 11.8 g/dL (13.5-17.0); MEAN CORPUSCULAR HEMOGLOBIN 30.1 pg (27.0-33.4); MEAN CORPUSCULAR HGB CONC 33.1 g/dL (32.0-36.0); MEAN CORPUSCULAR VOLUME 91 fl (80-97); PLATELET COUNT 201 10^3/uL (150-450); RED BLOOD COUNT 3.93 10^6/uL (4.35-5.55); WHITE BLOOD COUNT 12.5 10^3/uL (4.0-10.5)
--- NOTE | 2018-10-20 06:24 | RADIOLOGY REPORT (SQ) ---
EXAM DESCRIPTION: XR KNEE 3 VIEWS COMPLETED DATE/TME: 10/19/2018 00:00 CLINICAL HISTORY: 88 years Male, lt knee pain COMPARISON: None. Findings: Left total knee arthroplasty. Small left knee effusion. Atherosclerotic vascular disease. Bones, joints, and soft tissues of the LEFT XR KNEE 3 VIEWS appear otherwise unremarkable. IMPRESSION: Small left knee effusion.
[2018-10-20 06:29] LABS: ALANINE AMINOTRANSFERASE 21 U/L (21-72); ALBUMIN 3.2 g/dL (3.5-5.0); ALKALINE PHOSPHATASE 72 U/L (38-126); ANION GAP 13 (5-19); ASPARTATE AMINO TRANSFERASE 19 U/L (17-59); BILIRUBIN,DIRECT 0.3 mg/dL (0.0-0.4); BILIRUBIN,TOTAL 0.6 mg/dL (0.2-1.3); BLOOD UREA NITROGEN 28 mg/dL (7-20); CALCIUM 9.7 mg/dL (8.4-10.2); CARBON DIOXIDE 33 mmol/L (22-30); CHLORIDE 92 mmol/L (98-107); GLUCOSE 99 mg/dL (75-110); POTASSIUM 3.7 mmol/L (3.6-5.0); SODIUM 137.9 mmol/L (137-145); TOTAL PROTEIN 5.6 g/dL (6.3-8.2)
[2018-10-20] MEDS: FUROSEMIDE 40 MG TABLET PO SCH (09:28)
[2018-10-20] MEDS: FAMOTIDINE 20 MG TABLET PO SCH ×2 (09:29→21:42)
[2018-10-20] MEDS: TAMSULOSIN HCL 0.4 MG CAP.SR.24H PO SCH (09:29)
[2018-10-20] MEDS: MAGNESIUM OXIDE 400 MG TABLET PO SCH (09:29)
[2018-10-20] MEDS: DIVALPROEX SODIUM 250 MG TABLET.DR PO SCH ×2 (09:29→17:23)
[2018-10-20] MEDS: ASPIRIN 81 MG TABLET, CHEWABLE PO SCH (09:29)
[2018-10-20] MEDS: DOCUSATE SODIUM 100 MG CAPSULE PO SCH (09:29)
[2018-10-20] MEDS: FENOFIBRATE NANOCRYSTALLIZED 145 MG TABLET PO SCH (09:29)
[2018-10-20] MEDS: BUSPIRONE HCL 10 MG TABLET PO SCH ×2 (09:30→21:42)
[2018-10-20] MEDS: FEBUXOSTAT 40 MG TABLET PO SCH (09:30)
--- NOTE | 2018-10-20 12:05 | PDOC PROGRESS REPORT ---
Subjective Progress Note for:: 10/20/18 Subjective:: 88 year old male who presented to the emergency room with his family who were expressing concern for the patient's recent onset hallucinations. Family members indicate that the patient complains of having ants crawling all over him and he also has been more somnolent since his return home on October 14 from a hospitalization here at [facility] for a urinary tract infection. He denies any current complaints and appears to be grossly alert and oriented on exam and is responsive to verbal stimuli in an appropriate manner. He does not confirm or deny the family's complaints of his hallucinations and increased somnolence. His reports that he is unable to get up and walk at home and she is also concerned about this. In the emergency room he was found to have a slightly elevated white blood count 15,000 but his evaluation was otherwise unremarkable including a CT scan of the head. He was subsequently admitted for further evaluation and treatment. 10/[id number]-old male recently discharged from the hospital admitted for hallucinations and the admitting diagnosis is psychosis. No acute events since the admission. Alert and awake communicating okay. He was able to give me the date of and he also told me he is in [facility]. And is also able to give his home address without any problem. 10/[id number]-gtmu-old male recently discharged from the hospital admitted for hallucinations and admitting diagnosis acute psychosis. The nurse called me this morning and said patient was agitated not following the commands try to come out of the bed going to the restroom walking around the tried to convince him to get into the bed he refused to follow the commands refusing to take the medications security was called because of concerns about patient safety and we started him on Ativan 1 mg IV every 4 PRN for agitation. I went to see the patient patient is comfortably in the chair communicating well he is saying he is not in heart he give his data but he no way he easily give the present location and is also gave his home address his and name. psych consult was requested for further assessment. 10/[id number]-ipow-old male recently discharged from the hospital readmitted for hallucinations and admitting diagnosis was acute psychosis. Yesterday he was agitated confused and aggressive. Psych consult was done as per the recommendations started on Depakote and BuSpar patient is doing very well today. Comfortable in the chair communicating well. Not in distress. 10/20/[id number]-ckei-old male admitted for possible UTI and altered mental status with psychosis psych consult was done the recommendation is to start him on Depakote and BuSpar after the medications are initiated patient is stable. No acute events. Is comfortable in the chair this morning communicating well. Reason For Visit: PSYCHOSIS,LEUKOCYTOSIS Physical Exam Vital Signs: Temp Pulse Resp BP Pulse Ox 98.2 F 71 16 124/75 98 10/20/18 00:00 10/20/18 00:00 10/20/18 00:00 10/20/18 00:00 10/20/18 00:00 Intake & Output 10/19/18 10/20/18 10/21/18 06:59 06:59 06:59 Intake Total 564 1260 100 Output Total 1400 Balance 564 -140 100 Weight 107.2 kg 105.9 kg General appearance: PRESENT: no acute distress, obese Head exam: PRESENT: atraumatic Eye exam: PRESENT: PERRLA Mouth exam: PRESENT: moist, tongue midline Teeth exam: PRESENT: poor dentation Neck exam: ABSENT: carotid bruit, JVD, lymphadenopathy, thyromegaly Respiratory exam: PRESENT: clear to auscultation angela. ABSENT: rales, rhonchi, wheezes Cardiovascular exam: PRESENT: RRR. ABSENT: diastolic murmur, rubs, systolic murmur GI/Abdominal exam: PRESENT: normal bowel sounds, soft. ABSENT: distended, guarding, mass, organolmegaly, rebound, tenderness Rectal exam: PRESENT: deferred Extremities exam: PRESENT: full ROM. ABSENT: calf tenderness, clubbing, pedal edema Neurological exam: PRESENT: alert, awake, oriented to person, oriented to place, oriented to time, oriented to situation, CN II-XII grossly intact. ABSENT: motor sensory deficit Psychiatric exam: PRESENT: appropriate affect, normal mood. ABSENT: homicidal ideation, suicidal ideation Results Laboratory Results: 10/20/18 05:25 10/20/18 05:25 10/20/18 10/20/18 05:25 05:25 WBC 12.5 H RBC 3.93 L Hgb 11.8 L Hct 35.7 L MCV 91 MCH 30.1 MCHC 33.1 RDW 15.0 H Plt Count 201 Sodium 137.9 Potassium 3.7 Chloride 92 L Carbon Dioxide 33 H Anion Gap 13 BUN 28 H Creatinine 1.00 Est GFR ( Amer) > 60 Est GFR (Non-Af Amer) > 60 Glucose 99 Calcium 9.7 Magnesium 1.8 Total Bilirubin 0.6 AST 19 ALT 21 Alkaline Phosphatase 72 Total Protein 5.6 L Albumin 3.2 L 10/16/18 15:47 Troponin I 0.016 NT-Pro-B Natriuret Pep 2930 H Impressions: Head CT 10/16/18 15:22 IMPRESSION: 1. Chronic age related changes without evidence of acute intracranial process. 2. Mucosal sinus disease greatest within the right frontal and maxillary sinus and ethmoid air cells. EVIDENCE OF ACUTE STROKE: NO. Chest X-Ray 10/16/18 19:11 IMPRESSION: Cannot exclude mild pulmonary edema. Knee X-Ray 10/19/18 00:00 IMPRESSION: Small left knee effusion. Assessment and Plan - Diagnosis (1) Psychosis Qualifiers: Psychosis type: unspecified psychosis type Qualified Code(s): F29 - U nspecified psychosis not due to a substance or known physiological condition Is this a current diagnosis for this admission?: Yes Plan: Patient has an acute mild psychosis which will be addressed by supportive cares and will try to avoid utilizing medications if his symptoms are resolving quickly. Should he develop behavioral symptomology Haldol or other agents will be employed as needed. A daily CBC, metabolic profile and magnesium level be used as part of monitoring the patient's therapeutic course and observing for changes that could precipitate further symptoms. 10/17/2018-patient is admitted with acute psychosis. On examination this morning alert and awake communicating very well. No acute events in the last 24 hours. Comfortably in the bed. Temperature is 97.6. Managed to closely monitor his mental status. [place] [id number] 10/18/2018-patient was admitted with a diagnosis of acute psychosis this morning patient was agitated and uncooperative patient was present on one-to-one observation psych consult was requested and started Ativan to 1 mg IV q. as needed at the time of my examination patient is comfortable in the bed communicating okay not in distress. 10/19/2018-elderly male admitted for acute psychosis psych consult was done as per the recommendations started on BuSpar and Depakote they are working very well patient is doing extremely well today. Comfortable dementia communicating well. 10/20/2018-patient is presently on Depakote and BuSpar medications are working well no acute events in the last 24 hours. Comfortable in the chair communicating well. (2) Chronic atrial fibrillation Is this a current diagnosis for this admission?: Yes Plan: Patient be continued on his usual medication for chronic atrial fibrillation. 10/17/2018-patient has history of chronic atrial fibrillation. Plan is to resume his diltiazem. Heart rate is 78. Rate controlled. 10/18/2018-patient has history of chronic atrial fibrillation he is on diltiazem heart rate is presently around 80. Well controlled. 10/19/2018-patient has history of chronic atrial fibrillation on diltiazem. Heart rate today is 85. Rate controlled. 10/20/2018-patient's heart rate today is 71 rate control. Presently on diltiazem plan is to continue present management. (3) Leukocytosis Qualifiers: Leukocytosis type: unspecified Qualified Code(s): D72.829 - Elevated white blood cell count, unspecified Is this a current diagnosis for this admission?: Yes Plan: Patient's leukocytosis will be monitored with a daily CBC. 10/17/2018-patient came in with a WBC count of 15,000 presently WBC count is 14,100 patient is on IV cefazolin. Urine cultures and blood cultures are negative so far. 10/18/2018-patient's WBC count is 16,400 urine cultures blood cultures are negative so far. Presently on IV cefazolin. Afebrile. With T-max of 97.7. 10/19/2018-Patient is afebrile T-max is 97.8 count is 15,800 improving. pt is presently on IV cefazolin. Urine cultures and blood cultures are negative so far. 10/20/2018-T-max is 98.2 WBC count is 12,500 improving. Plan is to discontinue antibiotics from today because the urine cultures blood cultures are negative. (4) HTN (hypertension) Qualifiers: Hypertension type: essential hypertension Qualified Code(s): I10 - Essential (primary) hypertension Is this a current diagnosis for this admission?: Yes Plan: Patient be continued on his usual antihypertensive regiment. 10/17/2018-patient has history of chronic hypertension blood pressure today is 151/65. Home medications are resumed. 10/18/2018-patient has history of hypertension blood pressure is 130/65. Stable. Plan is to continue the present management. 10/19/2018-latest blood pressure is 125/91. Plan is to continue the present management.
[2018-10-20] MEDS: ATORVASTATIN CALCIUM 10 MG TABLET PO SCH (21:42)
[2018-10-21] MEDS: HEPARIN SOD (PORCINE) 5,000 UNIT/ML 1 ML SYRINGE SUBCUT SCH ×3 (06:17→21:55)
[2018-10-21] MEDS: DILTIAZEM HCL 30 MG TABLET PO SCH ×3 (06:18→21:56)
[2018-10-21] MEDS: DIVALPROEX SODIUM 250 MG TABLET.DR PO SCH ×2 (09:28→17:57)
[2018-10-21] MEDS: DOCUSATE SODIUM 100 MG CAPSULE PO SCH (09:29)
[2018-10-21] MEDS: FUROSEMIDE 40 MG TABLET PO SCH (09:29)
[2018-10-21] MEDS: FENOFIBRATE NANOCRYSTALLIZED 145 MG TABLET PO SCH (09:29)
[2018-10-21] MEDS: FEBUXOSTAT 40 MG TABLET PO SCH (09:29)
[2018-10-21] MEDS: BUSPIRONE HCL 10 MG TABLET PO SCH ×2 (09:29→21:55)
[2018-10-21] MEDS: MAGNESIUM OXIDE 400 MG TABLET PO SCH (09:29)
[2018-10-21] MEDS: ASPIRIN 81 MG TABLET, CHEWABLE PO SCH (09:29)
[2018-10-21] MEDS: TAMSULOSIN HCL 0.4 MG CAP.SR.24H PO SCH (09:29)
[2018-10-21] MEDS: FAMOTIDINE 20 MG TABLET PO SCH ×2 (09:29→21:55)
--- NOTE | 2018-10-21 10:56 | PDOC PROGRESS REPORT ---
Subjective Progress Note for:: 10/21/18 Subjective:: 88 year old male who presented to the emergency room with his family who were expressing concern for the patient's recent onset hallucinations. Family members indicate that the patient complains of having ants crawling all over him and he also has been more somnolent since his return home on October 14 from a hospitalization here at [facility] for a urinary tract infection. He denies any current complaints and appears to be grossly alert and oriented on exam and is responsive to verbal stimuli in an appropriate manner. He does not confirm or deny the family's complaints of his hallucinations and increased somnolence. His reports that he is unable to get up and walk at home and she is also concerned about this. In the emergency room he was found to have a slightly elevated white blood count 15,000 but his evaluation was otherwise unremarkable including a CT scan of the head. He was subsequently admitted for further evaluation and treatment. 10/17/[id number]-qjbt-old male recently discharged from the hospital admitted for hallucinations and the admitting diagnosis is psychosis. No acute events since the admission. Alert and awake communicating okay. He was able to give me the date of and he also told me he is in [facility]. And is also able to give his home address without any problem. 10/18/[id number]-tplp-old male recently discharged from the hospital admitted for hallucinations and admitting diagnosis acute psychosis. The nurse called me this morning and said patient was agitated not following the commands try to come out of the bed going to the restroom walking around the tried to convince him to get into the bed he refused to follow the commands refusing to take the medications security was called because of concerns about patient safety and we started him on Ativan 1 mg IV every 4 PRN for agitation. I went to see the patient patient is comfortably in the chair communicating well he is saying he is not in heart he give his data but he no way he easily give the present location and is also gave his home address his and name. psych consult was requested for further assessment. 10/19/[id number]-hute-old male recently discharged from the hospital readmitted for hallucinations and admitting diagnosis was acute psychosis. Yesterday he was agitated confused and aggressive. Psych consult was done as per the recommendations started on Depakote and BuSpar patient is doing very well today. Comfortable in the chair communicating well. Not in distress. 10/20/[id number]-fkfq-old male admitted for possible UTI and altered mental status with psychosis psych consult was done the recommendation is to start him on Depakote and BuSpar after the medications are initiated patient is stable. No acute events. Is comfortable in the chair this morning communicating well. 10/21/[id number]-plag-old male recently discharged from the hospital brought back to the emergency room by his complaining that patient was confused and agitated and he was admitted with a diagnosis of acute psychosis. At the time of admission the impression was patient might have a UTI. Psych consult was requested started on Depakote and BuSpar patient mental status is much improved. No acute events for the last 24 hours. Comfortable in the chair communicating well. Antibiotics are discontinued from yesterday. Urine cultures are negative. Reason For Visit: PSYCHOSIS,LEUKOCYTOSIS Physical Exam Vital Signs: Temp Pulse Resp BP Pulse Ox 98.0 F 73 17 125/67 97 10/20/18 19:37 10/20/18 19:37 10/20/18 19:37 10/20/18 19:37 10/20/18 19:37 Intake & Output 10/20/18 10/21/18 10/22/18 06:59 06:59 06:59 Intake Total 1260 1220 Output Total 1400 Balance -140 1220 Weight 105.9 kg 108.9 kg General appearance: PRESENT: no acute distress, obese Head exam: PRESENT: atraumatic Eye exam: PRESENT: PERRLA Mouth exam: PRESENT: dry mucosa Teeth exam: PRESENT: poor dentation Neck exam: ABSENT: carotid bruit, JVD, lymphadenopathy, thyromegaly Respiratory exam: PRESENT: decreased breath sounds Cardiovascular exam: PRESENT: RRR. ABSENT: diastolic murmur, rubs, systolic murmur GI/Abdominal exam: PRESENT: normal bowel sounds, soft. ABSENT: distended, guarding, mass, organolmegaly, rebound, tenderness Rectal exam: PRESENT: deferred Extremities exam: PRESENT: full ROM. ABSENT: calf tenderness, clubbing, pedal edema Neurological exam: PRESENT: alert, awake, oriented to person, oriented to place, oriented to time, oriented to situation, CN II-XII grossly intact. ABSENT: motor sensory deficit Psychiatric exam: PRESENT: appropriate affect, normal mood. ABSENT: homicidal ideation, suicidal ideation Results Laboratory Results: 10/20/18 05:25 10/20/18 05:25 10/16/18 15:47 Troponin I 0.016 NT-Pro-B Natriuret Pep 2930 H Impressions: Head CT 10/16/18 15:22 IMPRESSION: 1. Chronic age related changes without evidence of acute intracranial process. 2. Mucosal sinus disease greatest within the right frontal and maxillary sinus and ethmoid air cells. EVIDENCE OF ACUTE STROKE: NO. Chest X-Ray 10/16/18 19:11 IMPRESSION: Cannot exclude mild pulmonary edema. Knee X-Ray 10/19/18 00:00 IMPRESSION: Small left knee effusion. Assessment and Plan - Diagnosis (1) Psychosis Qualifiers: Psychosis type: unspecified psychosis type Qualified Code(s): F29 - Unspecified psychosis not due to a substance or known physiological condition Is this a current diagnosis for this admission?: Yes Plan: Patient has an acute mild psychosis which will be addressed by supportive cares and will try to avoid utilizing medications if his symptoms are resolving eder vergara. Should he develop behavioral symptomology Haldol or other agents will be employed as needed. A daily CBC, metabolic profile and magnesium level be used as part of monitoring the patient's therapeutic course and observing for changes that could precipitate further symptoms. 10/17/2018-patient is admitted with acute psychosis. On examination this morning alert and awake communicating very well. No acute events in the last 24 hours. Comfortably in the bed. Temperature is 97.6. Managed to closely monitor his mental status[place] [id number] 10/18/2018-patient was admitted with a diagnosis of acute psychosis this morning patient was agitated and uncooperative patient was present on one-to-one observation psych consult was requested and started Ativan to 1 mg IV q. as needed at the time of my examination patient is comfortable in the bed communicating okay not in distress. 10/19/2018-elderly male admitted for acute psychosis psych consult was done as per the recommendations started on BuSpar and Depakote they are working very well patient is doing extremely well today. Comfortable dementia communicating well. 10/20/2018-patient is presently on Depakote and BuSpar medications are working well no acute events in the last 24 hours. Comfortable in the chair communicating well. 10/21/2018-acute psychosis is resolved. Presently on Depakote and BuSpar. No acute events in the last 24 hours. Alert and awake communicating well. (2) Chronic atrial fibrillation Is this a current diagnosis for this admission?: Yes Plan: Patient be continued on his usual medication for chronic atrial fibrillation. 10/17/2018-patient has history of chronic atrial fibrillation. Plan is to resume his diltiazem. Heart rate is 78. Rate controlled. 10/18/2018-patient has history of chronic atrial fibrillation he is on diltiazem heart rate is presently around 80. Well controlled. 10/19/2018-patient has history of chronic atrial fibrillation on diltiazem. Heart rate today is 85. Rate controlled. 10/20/2018-patient's heart rate today is 71 rate control. Presently on diltiazem plan is to continue present management. 10/21/2018-patient heart rate today is 93. Rate controlled. Presently on diltia zem plan is to continue the present medication he is not on anticoagulation. (3) Leukocytosis Qualifiers: Leukocytosis type: unspecified Qualified Code(s): D72.829 - Elevated white blood cell count, unspecified Is this a current diagnosis for this admission?: Yes Plan: Patient's leukocytosis will be monitored with a daily CBC. 10/17/2018-patient came in with a WBC count of 15,000 presently WBC count is 14,100 patient is on IV cefazolin. Urine cultures and blood cultures are negative so far. 10/18/2018-patient's WBC count is 16,400 urine cultures blood cultures are negative so far. Presently on IV cefazolin. Afebrile. With T-max of 97.7. 10/19/2018-Patient is afebrile T-max is 97.8 count is 15,800 improving. pt is presently on IV cefazolin. Urine cultures and blood cultures are negative so far. 10/20/2018-T-max is 98.2 WBC count is 12,500 improving. Plan is to discontinue antibiotics from today because the urine cultures blood cultures are negative. 10/21/2018-patient came in with leukocytosis most likely secondary to urinary tract infection, urine cultures are negative patient is presently off the antibiotics WBC count today is 12,500 improving. (4) HTN (hypertension) Qualifiers: Hypertension type: essential hypertension Qualified Code(s): I10 - Essential (primary) hypertension Is this a current diagnosis for this admission?: Yes Plan: Patient be continued on his usual antihypertensive regiment. 10/17/2018-patient has history of chronic hypertension blood pressure today is 151/65. Home medications are resumed. 10/18/2018-patient has history of hypertension blood pressure is 130/65. Stable. Plan is to continue the present management. 10/19/2018-latest blood pressure is 125/91. Plan is to continue the present management. 10/21/2018-patient blood pressure today is 125/67 stable. Plan is to continue the present management. - Time Time Spent with patient: 15-24 minutes Medications reviewed and adjusted accordingly: Yes Anticipated discharge: SNF
[2018-10-21] MEDS: ATORVASTATIN CALCIUM 10 MG TABLET PO SCH (21:55)
[2018-10-22] MEDS: DILTIAZEM HCL 30 MG TABLET PO SCH ×3 (06:35→21:41)
[2018-10-22] MEDS: HEPARIN SOD (PORCINE) 5,000 UNIT/ML 1 ML SYRINGE SUBCUT SCH ×3 (06:35→21:40)
[2018-10-22] MEDS: TAMSULOSIN HCL 0.4 MG CAP.SR.24H PO SCH (09:51)
[2018-10-22] MEDS: DOCUSATE SODIUM 100 MG CAPSULE PO SCH (09:51)
[2018-10-22] MEDS: FENOFIBRATE NANOCRYSTALLIZED 145 MG TABLET PO SCH (09:52)
[2018-10-22] MEDS: FUROSEMIDE 40 MG TABLET PO SCH (09:52)
[2018-10-22] MEDS: MAGNESIUM OXIDE 400 MG TABLET PO SCH (09:52)
[2018-10-22] MEDS: DIVALPROEX SODIUM 250 MG TABLET.DR PO SCH ×2 (09:52→17:33)
[2018-10-22] MEDS: FAMOTIDINE 20 MG TABLET PO SCH ×2 (09:52→21:40)
[2018-10-22] MEDS: FEBUXOSTAT 40 MG TABLET PO SCH (09:52)
[2018-10-22] MEDS: ASPIRIN 81 MG TABLET, CHEWABLE PO SCH (09:52)
[2018-10-22] MEDS: BUSPIRONE HCL 10 MG TABLET PO SCH ×2 (09:52→21:40)
--- NOTE | 2018-10-22 11:44 | PDOC PROGRESS REPORT ---
Subjective Progress Note for:: 10/22/18 Subjective:: 88 year old male who presented to the emergency room with his family who were expressing concern for the patient's recent onset hallucinations. Family members indicate that the patient complains of having ants crawling all over him and he also has been more somnolent since his return home on October 14 from a hospitalization here at [facility] for a urinary tract infection. He denies any current complaints and appears to be grossly alert and oriented on exam and is responsive to verbal stimuli in an appropriate manner. He does not confirm or deny the family's complaints of his hallucinations and increased somnolence. His reports that he is unable to get up and walk at home and she is also concerned about this. In the emergency room he was found to have a slightly elevated white blood count 15,000 but his evaluation was otherwise unremarkable including a CT scan of the head. He was subsequently admitted for further evaluation and treatment. 10/17/[id number]-hpni-old male recently discharged from the hospital admitted for hallucinations and the admitting diagnosis is psychosis. No acute events since the admission. Alert and awake communicating okay. He was able to give me the date of and he also told me he is in [facility]. And is also able to give his home address without any problem. 10/18/[id number]-jkiq-old male recently discharged from the hospital admitted for hallucinations and admitting diagnosis acute psychosis. The nurse called me this morning and said patient was agitated not following the commands try to come out of the bed going to the restroom walking around the tried to convince him to get into the bed he refused to follow the commands refusing to take the medications security was called because of concerns about patient safety and we started him on Ativan 1 mg IV every 4 PRN for agitation. I went to see the patient patient is comfortably in the chair communicating well he is saying he is not in heart he give his data but he no way he easily give the present location and is also gave his home address his and name. psych consult was requested for further assessment. 10/19/[id number]-zosm-old male recently discharged from the hospital readmitted for hallucinations and admitting diagnosis was acute psychosis. Yesterday he was agitated confused and aggressive. Psych consult was done as per the recommendations started on Depakote and BuSpar patient is doing very well today. Comfortable in the chair communicating well. Not in distress. 10/20/[id number]-thqj-old male admitted for possible UTI and altered mental status with psychosis psych consult was done the recommendation is to start him on Depakote and BuSpar after the medications are initiated patient is stable. No acute events. Is comfortable in the chair this morning communicating well. 10/21/[id number]-ymwa-old male recently discharged from the hospital brought back to the emergency room by his complaining that patient was confused and agitated and he was admitted with a diagnosis of acute psychosis. At the time of admission the impression was patient might have a UTI. Psych consult was requested started on Depakote and BuSpar patient mental status is much improved. No acute events for the last 24 hours. Comfortable in the chair communicating well. Antibiotics are discontinued from yesterday. Urine cultures are negative. 10/22/2018-no acute events in the last 24 hours. Afebrile. Spoke to patient's this morning, she wants him to go to a rehab facility for a week or 2. pt is comfortably in the bed communicating well. Reason For Visit: PSYCHOSIS,LEUKOCYTOSIS Physical Exam Vital Signs: Temp Pulse Resp BP Pulse Ox 97.9 F 68 18 116/69 99 10/22/18 00:00 10/22/18 00:00 10/22/18 00:00 10/22/18 00:00 10/22/18 00:00 Intake & Output 10/21/18 10/22/18 10/23/18 06:59 06:59 06:59 Intake Total 1220 1037 Output Total 500 Balance 1220 537 Weight 108.9 kg 109.1 kg General appearance: PRESENT: no acute distress, obese Head exam: PRESENT: atraumatic Eye exam: PRESENT: PERRLA Mouth exam: PRESENT: moist, tongue midline Teeth exam: PRESENT: poor dentation Neck exam: ABSENT: carotid bruit, JVD, lymphadenopathy, thyromegaly Respiratory exam: PRESENT: decreased breath sounds Cardiovascular exam: PRESENT: RRR. ABSENT: diastolic murmur, rubs, systolic murmur GI/Abdominal exam: PRESENT: normal bowel sounds, soft. ABSENT: distended, guarding, mass, organolmegaly, rebound, tenderness Rectal exam: PRESENT: deferred Extremities exam: PRESENT: full ROM. ABSENT: calf tenderness, clubbing, pedal edema Neurological exam: PRESENT: alert, awake, oriented to person, oriented to place, oriented to time, oriented to situation, CN II-XII grossly intact. ABSENT: motor sensory deficit Psychiatric exam: PRESENT: appropriate affect, normal mood. ABSENT: homicidal ideation, suicidal ideation Results Laboratory Results: 10/20/18 05:25 10/20/18 05:25 10/17/18 05:29 Blood Blood Culture - Final NO GROWTH IN 5 DAYS 10/17/18 01:15 Blood Blood Culture - Final NO GROWTH IN 5 DAYS 10/16/18 15:47 Troponin I 0.016 NT-Pro-B Natriuret Pep 2930 H Impressions: Head CT 10/16/18 15:22 IMPRESSION: 1. Chronic age related changes without evidence of acute intracranial process. 2. Mucosal sinus disease greatest within the right frontal and maxillary sinus and ethmoid air cells. EVIDENCE OF ACUTE STROKE: NO. Chest X-Ray 10/16/18 19:11 IMPRESSION: Cannot exclude mild pulmonary edema. Knee X-Ray 10/19/18 00:00 IMPRESSION: Small left knee effusion. Assessment and Plan - Diagnosis (1) Psychosis Qualifiers: Psychosis type: unspecified psychosis type Qualified Code(s): F29 - Unspecified psychosis not due to a substance or known physiological condition Is this a current diagnosis for this admission?: Yes Plan: Patient has an acute mild psychosis which will be addressed by supportive cares and will try to avoid utilizing medications if his symptoms are resolving quickly. Should he develop behavioral symptomology Haldol or other agents will be employed as needed. A daily CBC, metabolic profile and magnesium level be used as part of monitoring the patient's therapeutic course and observing for changes that could precipitate further symptoms. 10/17/2018-patient is admitted with acute psychosis. On examination this morning alert and awake communicating very well. No acute events in the last 24 hours. Comfortably in the bed. Temperature is 97.6. Managed to closely monitor his mental status. [place] [address] 10/18/2018-patient was admitted with a diagnosis of acute psychosis this morning patient was agitated and uncooperative patient was present on one-to-one observation psych consult was requested and started Ativan to 1 mg IV q. as needed at the time of my examination patient is comfortable in the bed communicating okay not in distress. 10/19/2018-elderly male admitted for acute psychosis psych consult was done as per the recommendations started on BuSpar and Depakote they are working very well patient is doing extremely well today. Comfortable dementia communicating well. 10/20/2018-patient is presently on Depakote and BuSpar medications are working well no acute events in the last 24 hours. Comfortable in the chair communicating well. 10/21/2018-acute psychosis is resolved. Presently on Depakote and BuSpar. No acute events in the last 24 hours. Alert and awake communicating well. 10/22/2018-patient is comfortably in the bed communicating well. No complaints. No concerns expressed by the nurse composition stone applicator. (2) Chronic atrial fibrillation Is this a current diagnosis for this admission?: Yes Plan: Patient be continued on his usual medication for chronic atrial fibrillation. 10/17/2018-patient has history of chronic atrial fibrillation. Plan is to resume his diltiazem. Heart rate is 78. Rate controlled. 10/18/2018-patient has history of chronic atrial fibrillation he is on diltiazem heart rate is presently around 80. Well controlled. 10/19/2018-patient has history of chronic atrial fibrillation on diltiazem. Heart rate today is 85. Rate controlled. 10/20/2018-patient's heart rate today is 71 rate control. Presently on diltiazem plan is to continue present management. 10/21/2018-patient heart rate today is 93. Rate controlled. Presently on diltiazem plan is to continue the present medication he is not on anticoag ulation. 10/22/2018-patient heart rate today is 68 well controlled. Plan is to continue TTS him at this point. Not on anticoagulation. (3) Leukocytosis Qualifiers: Leukocytosis type: unspecified Qualified Code(s): D72.829 - Elevated white blood cell count, unspecified Is this a current diagnosis for this admission?: Yes (4) HTN (hypertension) Qualifiers: Hypertension type: essential hypertension Qualified Code(s): I10 - Ess ential (primary) hypertension Is this a current diagnosis for this admission?: Yes Plan: Patient be continued on his usual antihypertensive regiment. 10/17/2018-patient has history of chronic hypertension blood pressure today is 151/65. Home medications are resumed. 10/18/2018-patient has history of hypertension blood pressure is 130/65. Stable. Plan is to continue the present management. 10/19/2018-latest blood pressure is 125/91. Plan is to continue the present management. 10/21/2018-patient blood pressure today is 125/67 stable. Plan is to continue the present management. 10/22/2018-blood pressure today is 116/69. Stable. Plan is to continue the present management. - Time Time Spent with patient: 15-24 minutes Medications reviewed and adjusted accordingly: Yes Anticipated discharge: SNF
[2018-10-22] MEDS: ATORVASTATIN CALCIUM 10 MG TABLET PO SCH (21:40)
[2018-10-23] MEDS: DILTIAZEM HCL 30 MG TABLET PO SCH ×2 (06:13→14:44)
[2018-10-23] MEDS: HEPARIN SOD (PORCINE) 5,000 UNIT/ML 1 ML SYRINGE SUBCUT SCH ×2 (06:13→14:44)
[2018-10-23] MEDS: FUROSEMIDE 40 MG TABLET PO SCH (09:10)
[2018-10-23] MEDS: DIVALPROEX SODIUM 250 MG TABLET.DR PO SCH ×2 (09:10→17:55)
[2018-10-23] MEDS: BUSPIRONE HCL 10 MG TABLET PO SCH (09:10)
[2018-10-23] MEDS: FEBUXOSTAT 40 MG TABLET PO SCH (09:10)
[2018-10-23] MEDS: ASPIRIN 81 MG TABLET, CHEWABLE PO SCH (09:10)
[2018-10-23] MEDS: FAMOTIDINE 20 MG TABLET PO SCH (09:10)
[2018-10-23] MEDS: FENOFIBRATE NANOCRYSTALLIZED 145 MG TABLET PO SCH (09:10)
[2018-10-23] MEDS: MAGNESIUM OXIDE 400 MG TABLET PO SCH (09:11)
[2018-10-23] MEDS: TAMSULOSIN HCL 0.4 MG CAP.SR.24H PO SCH (09:11)
[2018-10-23] MEDS: DOCUSATE SODIUM 100 MG CAPSULE PO SCH (09:11)
--- NOTE | 2018-10-23 16:08 | PDOC TRANSFER SUMMARY ---
General Admission Date/PCP: 10/20/18 07:45 RANDA AGUIRRE MD Resuscitation Status: Full Code - Transfer Diagnosis (1) Psychosis Is this a current diagnosis for this admission?: Yes (2) Chronic atrial fibrillation Is this a current diagnosis for this admission?: Yes (3) Leukocytosis Is this a current diagnosis for this admission?: Yes (4) Hyperlipidemia Is this a current diagnosis for this admission?: Yes (5) HTN (hypertension) Is this a current diagnosis for this admission?: Yes (6) BPH (benign prostatic hyperplasia) Is this a current diagnosis for this admission?: No - Transfer Medications Home Medications: Tamsulosin HCl 0.4 mg PO DAILY 10/22/12 Magnesium Oxide [Mag-Ox 400 mg Tablet] 400 mg PO DAILY 10/10/18 Metolazone [Zaroxolyn 2.5 mg Tablet] 2.5 mg PO QHS 10/10/18 Furosemide [Lasix 40 mg Tablet] 40 mg PO BID 10/11/18 Febuxostat [Uloric 40 mg Tablet] 40 mg PO DAILY 10/17/18 Transfer Medications: Current Medications Acetaminophen (Tylenol 325 Mg Tablet) 650 mg PO Q4HP PRN PRN Reason: For headache, pain or fever Stop: 11/16/18 03:24 Last Admin: 10/23/18 12:46 Dose: 650 mg Documented by: Al Hydrox/Mg Hydrox/Simethicone (Maalox Plus Susp 30 Udcup) 30 ml PO Q6HP PRN PRN Reason: HEARTBURN Stop: 11/16/18 03:20 Aspirin (Aspirin 81 Mg Chewable Tablet) 81 mg PO DAILY [facility] Stop: 11/17/18 09:59 Last Admin: 10/23/18 09:10 Dose: 81 mg Documented by: Atorvastatin Calcium (Lipitor 10 Mg Tablet) 10 mg PO QHS [facility] Stop: 11/16/18 21:59 Last Admin: 10/22/18 21:40 Dose: 10 mg Documented by: Buspirone HCl (Buspar 10 Mg Tablet) 5 mg PO Q12 [facility] Stop: 11/17/18 16:59 Last Admin: 10/23/18 09:10 Dose: 5 mg Documented by: Diltiazem HCl (Cardizem 30 Mg Tablet) 30 mg PO Q8 [facility] Stop: 11/16/18 05:59 Last Admin: 10/23/18 14:44 Dose: 30 mg Documented by: Divalproex Sodium (Depakote Ec 250 Mg Tablet.Dr) 250 mg PO BID [facility] Stop: 11/17/18 17:59 Last Admin: 10/23/18 09:10 Dose: 250 mg Documented by: Docusate Sodium (Colace 100 Mg Capsule) 100 mg PO DAILY [facility] Stop: 11/16/18 09:59 Last Admin: 10/23/18 09:11 Dose: 100 mg Documented by: Famotidine (Pepcid 20 Mg Tablet) 20 mg PO Q12 KEARA Stop: 11/16/18 09:59 Last Admin: 10/23/18 09:10 Dose: 20 mg Documented by: Febuxostat (Uloric 40 Mg Tablet) 40 mg PO DAILY [facility] Stop: 11/17/18 09:59 Last Admin: 10/23/18 09:10 Dose: 40 mg Documented by: Fenofibrate (Tricor 145 Mg Tablet) 145 mg PO DAILY [facility] Stop: 11/16/18 09:59 Last Admin: 10/23/18 09:10 Dose: 145 mg Documented by: Furosemide (Lasix 40 Mg Tablet) 40 mg PO DAILY [facility] Stop: 11/16/18 09:59 Last Admin: 10/23/18 09:10 Dose: 40 mg Documented by: Heparin Sodium (Porcine) (Heparin Inj 5,000 Units/Ml 1 Ml Syringe) 5,000 unit SUBCUT Q8 [facility] Stop: 11/16/18 05:59 Last Admin: 10/23/18 14:44 Dose: 5,000 unit Documented by: Hydralazine HCl (Apresoline Inj/Pf 20 Mg/1 Ml Sdv) 10 mg IV Q4HP PRN PRN Reason: SBP GREATER THAN 160 Stop: 11/16/18 01:35 Magnesium Hydroxide (Milk Of Magnesia 30 Ml Udcup) 30 ml PO HSP PRN PRN Reason: FOR CONSTIPATION Stop: 11/16/18 03:20 Magnesium Oxide (Mag-Ox 400 Mg Tablet) 400 mg PO DAILY [facility] Stop: 11/16/18 09:59 Last Admin: 10/23/18 09:11 Dose: 400 mg Documented by: Ondansetron HCl (Zofran Inj/Pf 4 Mg/2 Ml Sdv) 4 mg IV Q4HP PRN PRN Reason: FOR NAUSEA/VOMITING Stop: 11/16/18 03:20 Sodium Chloride (Saline Flush 2.5 Ml Monoject Prefil Syrin) 2.5 ml IV Q8 KEARA Stop: 11/16/18 05:59 Last Admin: 10/23/18 14:50 Dose: Not Given Documented by: Tamsulosin HCl (Flomax 0.4 Mg Cap.Sr) 0.4 mg PO DAILY KEARA Stop: 11/16/18 09:59 Last Admin: 10/23/18 09:11 Dose: 0.4 mg Documented by: - Allergies Allergies/Adverse Reactions: No Known Allergies Allergy (Verified 10/16/18 14:14) Hospital Course Hospital Course: JEFFREY GORDILLO is a 88 year old male who presented to the emergency room with his family who were expressing concern for the patient's recent onset hallucinations. Family members indicate that the patient complains of having ants crawling all over him and he also has been more somnolent since his return home on October 14 from a hospitalization here at [facility] for a urinary tract infection. He denies any current complaints and appears to be grossly alert and oriented on exam and is responsive to verbal stimuli in an appropriate manner. He does not confirm or deny the family's complaints of his hallucinations and increased somnolence. His reports that he is unable to get up and walk at home and she is also concerned about this. In the emergency room he was found to have a slightly elevated white blood count 15,000 but his evaluation was otherwise unremarkable including a CT scan of the head. He was subsequently admitted for further evaluation and treatment. (1) Psychosis Resolved. Alert oriented x3. Thyroid function within normal limits. Came with leukocytosis however no evidence of infection was fine. Was empirically treated with IV antibiotics. (2) Chronic atrial fibrillation Rate controlled. Continued on Cardizem. Not a candidate for anticoagulation. (3) Leukocytosis Cultures negative. WBC 12.5 no bandemia. Was started on IV cefazolin. UA negative. Afebrile during hospitalization. (4) Hyperlipidemia Restarted home meds. (5) HTN (hypertension) SBP within normal limits. Was restarted on Cardizem, Lasix. Metolazone had been held. (6) BPH (benign prostatic hyperplasia) Restart home meds outpatient PCP follow-up. Physical Exam Vital Signs: Temp Pulse Resp BP Pulse Ox 98.6 F 88 22 H 130/59 H 95 10/23/18 12:00 10/23/18 12:00 10/23/18 12:00 10/23/18 12:00 10/23/18 12:00 Intake & Output 10/22/18 10/23/18 10/24/18 06:59 06:59 06:59 Intake Total 1037 1121 Output Total 500 Balance 537 1121 Weight 109.1 kg 100.9 kg General appearance: PRESENT: no acute distress, well-developed, well-nourished Head exam: PRESENT: atraumatic, normocephalic Neck exam: ABSENT: carotid bruit, JVD, lymphadenopathy, thyromegaly Respiratory exam: PRESENT: clear to auscultation angela. ABSENT: rales, rhonchi, wheezes Cardiovascular exam: PRESENT: RRR. ABSENT: diastolic murmur, rubs, systolic murmur GI/Abdominal exam: PRESENT: normal bowel sounds, soft. ABSENT: distended, guarding, mass, organolmegaly, rebound, tenderness Extremities exam: PRESENT: full ROM. ABSENT: calf tenderness, clubbing, pedal edema Neurological exam: PRESENT: alert, awake, oriented to person, oriented to place, oriented to time, oriented to situation, CN II-XII grossly intact. ABSENT: motor sensory deficit Skin exam: PRESENT: dry, intact, warm. ABSENT: cyanosis, rash Results Laboratory Results: 10/20/18 05:25 10/20/18 05:25 10/16/18 15:47 Troponin I 0.016 NT-Pro-B Natriuret Pep 2930 H Impressions: Head CT 10/16/18 15:22 IMPRESSION: 1. Chronic age related changes without evidence of acute intracranial process. 2. Mucosal sinus disease greatest within the right frontal and maxillary sinus and ethmoid air cells. EVIDENCE OF ACUTE STROKE: NO. Chest X-Ray 10/16/18 19:11 IMPRESSION: Cannot exclude mild pulmonary edema. Knee X-Ray 10/19/18 00:00 IMPRESSION: Small left knee effusion.
[2018-10-23 17:18] VITALS: BP 132/55
== END 2018-10-23 23:00 | DRG 885 ==
LOC: ER 14:11 → INTOOBSV 22:11 → EH 22:11 → 4S 10-17 00:45 → OBSVTOIN 10-20 07:45
PROVIDERS: ADMIT Emergency Medicine; ATTEND Emergency Medicine
DX: F23 Brief psychotic disorder (principal); I48.2 Chronic atrial fibrillation; E78.5 Hyperlipidemia, unspecified; N40.0 Benign prostatic hyperplasia without lower urinary tract symptoms; J44.9 Chronic obstructive pulmonary disease, unspecified; F17.210 Nicotine dependence, cigarettes, uncomplicated; E66.9 Obesity, unspecified; I10 Essential (primary) hypertension; Z68.31 Body mass index [BMI] 31.0-31.9, adult; Z96.652 Presence of left artificial knee joint; Z82.49 Family history of ischemic heart disease and other diseases of the circulatory system; Z79.82 Long term (current) use of aspirin; Z79.1 Long term (current) use of non-steroidal anti-inflammatories (NSAID)
CPT/HCPCS: 36415; 70450; 71045; 80048; 80053; 81001; 82140; 82803; 83735; 83880; 84439; 84443; 84481; 84484; 85025; 85027; 85610; 85730; 87040; 87086; G0378; J0360; J0690; J1644; J3475; J3490

== ENCOUNTER 2018-11-16 18:29 | Emergency (ER) | payer MEDICARE, OTHER ==
--- NOTE | 2018-11-16 19:23 | RADIOLOGY REPORT (SQ) ---
EXAM DESCRIPTION: CHEST SINGLE VIEW COMPLETED DATE/TIME: 11/16/2018 6:56 pm REASON FOR STUDY: fever, sepsis alert COMPARISON: 10/16/2018 EXAM PARAMETERS: NUMBER OF VIEWS: One view. TECHNIQUE: Single frontal radiographic view of the chest acquired. RADIATION DOSE: NA LIMITATIONS: None. FINDINGS: LUNGS AND PLEURA: Unchanged appearance of bibasilar scarring or atelectasis in comparison to prior examination. MEDIASTINUM AND HILAR STRUCTURES: No masses. Contour normal. HEART AND VASCULAR STRUCTURES: Cardiomegaly. BONES: No acute findings. HARDWARE: None in the chest. OTHER: No other significant finding. IMPRESSION: Unchanged appearance of bibasilar scarring or atelectasis in comparison to prior examina tion. No acute airspace opacity on AP radiograph. Cardiomegaly. TECHNICAL DOCUMENTATION: JOB ID: [id number] [employer]- All Rights Reserved Reading location - IP/workstation name: [email or web address]
[2018-11-16 19:25] LABS: ABSOLUTE BASOPHILS # (AUTO) 0.1 10^3/uL (0.0-0.2); ABSOLUTE EOSINOPHILS # (AUTO) 0.2 10^3/uL (0.0-0.6); ABSOLUTE LYMPHOCYTES (AUTO) 1.5 10^3/uL (0.5-4.7); ABSOLUTE MONOCYTES (AUTO) 1.1 10^3/uL (0.1-1.4); ABSOLUTE NEUT (AUTO) 14.6 10^3/uL (1.7-8.2); BASOPHILS % (AUTO) 0.5 % (0-2); EOSINOPHILS % (AUTO) 1.1 % (0-6); HEMOGLOBIN 12.6 g/dL (13.5-17.0); LYMPHOCYTES % (AUTO) 8.8 % (13-45); MEAN CORPUSCULAR HEMOGLOBIN 30.2 pg (27.0-33.4); MEAN CORPUSCULAR HGB CONC 33.2 g/dL (32.0-36.0); MEAN CORPUSCULAR VOLUME 91 fl (80-97); MONOCYTES % (AUTO) 6.5 % (3-13); PLATELET COUNT 241 10^3/uL (150-450); RED BLOOD COUNT 4.18 10^6/uL (4.35-5.55); RED CELL DISTRIBUTION WIDTH 15.5 % (11.5-14.0); SEGMENTED NEUTROPHILS % (AUTO) 83.1 % (42-78); TOTAL CELLS COUNTED % (AUTO) 100 %; WHITE BLOOD COUNT 17.5 10^3/uL (4.0-10.5)
[2018-11-16 19:26] LABS: VENOUS BLOOD BASE EXCESS 4.6 mmol/L; VENOUS BLOOD HCO3 29.6 mmol/L (20-32); VENOUS BLOOD PCO2 45.5 mmHg (35-63); VENOUS BLOOD PH 7.43 (7.30-7.42)
[2018-11-16 19:31] LABS: APPEARANCE,URINE CLEAR; BILIRUBIN,URINE NEGATIVE (NEGATIVE); COLOR,URINE YELLOW; GLUCOSE, URINE NEGATIVE (NEGATIVE); KETONES,URINE NEGATIVE (NEGATIVE); LEUKOCYTE ESTERASE,URINE NEGATIVE (NEGATIVE); NITRITE,URINE NEGATIVE (NEGATIVE); PROTEIN,URINE NEGATIVE (NEGATIVE); URINE SPECIFIC GRAVITY 1.011; UROBILINOGEN,URINE NEGATIVE mg/dL (<2.0)
[2018-11-16 19:32] LABS: INTERNATIONAL RATION (INR) 1.17
[2018-11-16 19:44] LABS: ALANINE AMINOTRANSFERASE 20 U/L (21-72); ALBUMIN 3.4 g/dL (3.5-5.0); ALKALINE PHOSPHATASE 81 U/L (38-126); ANION GAP 13 (5-19); ASPARTATE AMINO TRANSFERASE 17 U/L (17-59); BILIRUBIN,DIRECT 0.3 mg/dL (0.0-0.4); BILIRUBIN,TOTAL 0.4 mg/dL (0.2-1.3); BLOOD UREA NITROGEN 45 mg/dL (7-20); CALCIUM 9.9 mg/dL (8.4-10.2); CARBON DIOXIDE 31 mmol/L (22-30); CHLORIDE 88 mmol/L (98-107); GLUCOSE 134 mg/dL (75-110); POTASSIUM 3.2 mmol/L (3.6-5.0)
[2018-11-16] MEDS ORDERED: DILTIAZEM HCL 30 MG TABLET PO ONE (19:53)
--- NOTE | 2018-11-16 20:08 | ER Document Report ---
ED General - General Chief Complaint: Abnormal Lab Results Stated Complaint: WEAKNESS Time Seen by Provider: 11/16/18 19:01 Primary Care Provider: SARA WALSH MD [Primary Care Provider] - Follow up tomorrow TRAVEL OUTSIDE OF THE [place] IN LAST 30 DAYS: No - HPI Notes: Patient is a 88-year-old male that presents to the emergency department for chief complaint of leukocytosis. Patient presents from [facility] facility for elevating WBC count. He had blood work drawn today which showed a leukocytosis of 17.5. [facility] also reports he had some confusion. Patient has no current complaints. He denies feeling ill. He denies fevers and chills. Patient does have a coarse cough which he states is chronic and unchanged for him. Past Medical History: Atrial fibrillation Past Surgical History: reviewed in chart Social History: reviewed in chart Family History: Reviewed and noncontributory for presenting illness Allergies: Reviewed, see documented allergy list. REVIEW OF SYSTEMS: CONSTITUTIONAL : No fever No chills No diaphoresis No recent illness EENT: No vision changes No congestion No sore throat CARDIOVASCULAR: No chest pain No palpitations RESPIRATORY: No shortness of breath cough No difficulty breathing GASTROINTESTINAL: No abdominal pain No nausea No vomiting No diarrhea GENITOURINARY: No dysuria No hematuria No difficulty urinating MUSCULOSKELETAL: No back pain No leg pain No arm pain SKIN: No rashes No lesions LYMPHATIC: No swollen, enlarged glands. NEUROLOGICAL: No lightheadedness No headache No weakness No paresthesias PSYCHIATRIC: No anxiety No depression PHYSICAL EXAMINATION: Vital signs reviewed, nursing noted reviewed. GENERAL: Well-appearing, well-nourished and in no acute distress. HEAD: Atraumatic, normocephalic. EYES: Eyes appear normal, extraocular movements intact, sclera anicteric, conjunctiva are normal. ENT: nares patent, oropharynx clear without exudates. Moist mucous membranes. NECK: Normal range of motion, supple without lymphadenopathy LUNGS: Breath sounds clear to auscultation bilaterally and equal. No wheezes rales or rhonchi. HEART: Regular rate and rhythm without murmurs ABDOMEN: Soft, nontender, normoactive bowel sounds. No rebound, guarding, or rigidity. No masses appreciated. EXTREMITIES: Nontender, good range of motion, no pitting or edema. NEUROLOGICAL: oriented to person and place. confused to year. Moves all extremities spontaneously Motor and sensory grossly intact on exam. PSYCH: Normal mood, normal affect. SKIN: Warm, Dry, normal turgor, no rashes or lesions noted on exposed skin - Related Data Allergies/Adverse Reactions: No Known Allergies Allergy (Verified 10/16/18 14:14) Past Medical History - Social History Smoking Status: Never Smoker Frequency of alcohol use: None Family History: CAD, Hypertension Patient has suicidal ideation: No Patient has homicidal ideation: No - Past Medical History Cardiac Medical History: Reports: Hx Atrial Fibrillation, Hx Congestive Heart Failure, Hx Hypercholesterolemia, Hx Hypertension Pulmonary Medical History: Reports: Hx COPD Neurological Medical History: Denies: Hx Seizures Endocrine Medical History: Denies: Hx Diabetes Mellitus Type 1, Hx Diabetes Mellitus Type 2, Hx Hyperthyroidism, Hx Hypothyroidism Renal/ Medical History: Denies: Hx Peritoneal Dialysis GI Medical History: Denies: Hx Cirrhosis, Hx Hepatitis Musculoskeletal Medical History: Reports Hx Arthritis, Denies Hx Gout Skin Medical History: Denies Hx Eczema, Denies Hx Psoriasis Psychiatric Medical History: Denies: Hx Depression Traumatic Medical History: Reports: Hx Fractures Infectious Medical History: Denies: Hx Hepatitis Past Surgical History: Reports: Hx Orthopedic Surgery - left knee replacement, Other - VATS 2012 - Immunizations Hx Diphtheria, Pertussis, Tetanus Vaccination: No Hx Pneumococcal Vaccination: 10/22/12 Physical Exam - Vital signs Vitals: Temp Pulse Resp BP Pulse Ox 97.9 F 87 20 134/56 H 96 11/16/18 18:58 11/16/18 18:58 11/16/18 18:58 11/16/18 18:58 11/16/18 18:58 Course - Re-evaluation Re-evalutation: 11/16/18 20:09 vitals reviewed nursing notes reviewed. 11/16/18 20:18 Patient's lab work today does show a leukocytosis of 17. On chart review he has had a leukocytosis since the end of September. Patient had a an admission at the hospital for psychosis and leukocytosis. Chart review shows no source of inf ection found on that visit. Today he has no pneumonia or urinary tract infection. He is afebrile with stable vital signs. At this point he has no symptoms and is awake, alert and oriented. Patient does not have any apparent signs of infection. His EKG does show atrial fibrillation and his evening diltiazem was reportedly held. He will be given a dose of his home diltiazem. He also has a mild hypokalemia and was given potassium replacement in the emergency room. Patient's sodium is also slightly low which he has previously been as well on chart review. I did encourage him to drink more water. Patient is otherwise stable and well-appearing. I do recommend repeat WBC count by his PCP in the next 1 to 2 days for close monitoring. At this point I do not see a reason for prophylactic antibiotics or admission to the hospital. He will be discharged back to [facility] for further outpatient management. Laboratory 11/16/18 11/16/18 11/16/18 19:10 19:10 19:10 WBC 17.5 H RBC 4.18 L Hgb 12.6 L Hct 38.0 MCV 91 MCH 30.2 MCHC 33.2 RDW 15.5 H Plt Count 241 Seg Neutrophils % 83.1 H Lymphocytes % 8.8 L Monocytes % 6.5 Eosinophils % 1.1 Basophils % 0.5 Absolute Neutrophils 14.6 H Absolute Lymphocytes 1.5 Absolute Monocytes 1.1 Absolute Eosinophils 0.2 Absolute Basophils 0.1 PT 15.0 INR 1.17 VBG pH VBG pCO2 VBG HCO3 VBG Base Excess Sodium 132.0 L Potassium 3.2 L Chloride 88 L Carbon Dioxide 31 H Anion Gap 13 BUN 45 H Creatinine 1.20 Est GFR ( Amer) > 60 Est GFR (Non-Af Amer) 57 L Glucose 134 H Lactic Acid Calcium 9.9 Total Bilirubin 0.4 Direct Bilirubin 0.3 Neonat Total Bilirubin Not Reportable Neonat Direct Bilirubin Not Reportable Neonat Indirect Bili Not Reportable AST 17 ALT 20 L Alkaline Phosphatase 81 Total Protein 6.0 L Albumin 3.4 L Urine Color Urine Appearance Urine pH Ur Specific [place] Urine Protein Urine Glucose (UA) Urine Ketones Urine Blood Urine Nitrite Urine Bilirubin Urine Urobilinogen Ur Leukocyte Esterase Urine RBC (Auto) U Hyaline Cast (Auto) Urine Mucus (Auto) Urine Ascorbic Acid 11/16/18 11/16/18 11/16/18 19:10 19:10 19:10 WBC RBC Hgb Hct MCV MCH MCHC RDW Plt Count Seg Neutrophils % Lymphocytes % Monocytes % Eosinophils % Basophils % Absolute Neutrophils Absolute Lymphocytes Absolute Monocytes Absolute Eosinophils Absolute Basophils PT INR VBG pH 7.43 H VBG pCO2 45.5 VBG HCO3 29.6 VBG Base Excess 4.6 Sodium Potassium Chloride Carbon Dioxide Anion Gap BUN Creatinine Est GFR ( Amer) Est GFR (Non-Af Amer) Glucose Lactic Acid 1.7 Calcium Total Bilirubin Direct Bilirubin Neonat Total Bilirubin Neonat Direct Bilirubin Neonat Indirect Bili AST ALT Alkaline Phosphatase Total Protein Albumin Urine Color YELLOW Urine Appearance CLEAR Urine pH 6.0 Ur Specific [place] 1.011 Urine Protein NEGATIVE Urine Glucose (UA) NEGATIVE Urine Ketones NEGATIVE Urine Blood NEGATIVE Urine Nitrite NEGATIVE Urine Bilirubin NEGATIVE Urine Urobilinogen NEGATIVE Ur Leukocyte Esterase NEGATIVE Urine RBC (Auto) 0 U Hyaline Cast (Auto) 6 Urine Mucus (Auto) RARE Urine Ascorbic Acid NEGATIVE Chest X-Ray 11/16/18 18:33 IMPRESSION: Unchanged appearance of bibasilar scarring or atelectasis in comparison to prior examination. No acute airspace opacity on AP radiograph. Cardiomegaly. 11/16/18 20:20 - Vital Signs Vital signs: Temp Pulse Resp BP Pulse Ox 97.9 F 87 27 H 127/60 H 95 11/16/18 18:58 11/16/18 18:58 11/16/18 19:01 11/16/18 19:01 11/16/18 19:01 - Laboratory Result Diagrams: 11/16/18 19:10 11/16/18 19:10 Laboratory results interpreted by me: 11/16/18 11/16/18 11/16/18 19:10 19:10 19:10 WBC 17.5 H RBC 4.18 L Hgb 12.6 L RDW 15.5 H Seg Neutrophils % 83.1 H Lymphocytes % 8.8 L Absolute Neutrophils 14.6 H VBG pH 7.43 H Sodium 132.0 L Potassium 3.2 L Chloride 88 L Carbon Dioxide 31 H BUN 45 H Est GFR (Non-Af Amer) 57 L Glucose 134 H ALT 20 L Total Protein 6.0 L Albumin 3.4 L - EKG Interpretation by Me Additional EKG results interpreted by me: 11/16/18 20:09 interpreted by myself 1845: Afib, rate 86, normal axis, PVC, no ectopy Discharge - Discharge Clinical Impression: Hypokalemia Leukocytosis Qualifiers: Leukocytosis type: unspecified Qualified Code(s): D72.829 - Elevated white blood cell count, unspecified Condition: Stable Disposition: HOME, SELF-CARE Instructions: Leukocytosis ([facility]), Hypokalemia ([facility]) Additional Instructions: return to the ED if you are having any new or worsening symptoms. have your WBC count rechecked by your PCP in 1-2 days. Return to the ED if you develop chest pain, cough, fever, abdominal pain, or difficulty urinating. take all home medications as directed. Referrals: SARA WALSH MD [Primary Care Provider] - Follow up tomorrow
[2018-11-16] MEDS ORDERED: POTASSIUM CHLORIDE 10 MEQ CAPSULE.ER PO ONE (20:20)
[2018-11-16 22:53] VITALS: BP 111/67
--- NOTE | 2018-11-17 00:17 | EKG REPORT ---
SEVERITY:- ABNORMAL ECG - ATRIAL FIBRILLATION, V-RATE 63-106 CONSIDER ANTEROSEPTAL INFARCT BORDERLINE PROLONGED QT INTERVAL : Confirmed by: Suman Alvarado 17-Nov-2018 00:16:44
== END 2018-11-16 22:47 | disposition home or self-care (01) ==
LOC: ER 18:29
DX: E87.6 Hypokalemia (principal); D72.829 Elevated white blood cell count, unspecified; R53.1 Weakness; R41.0 Disorientation, unspecified; R05 Cough; I50.9 Heart failure, unspecified; I11.0 Hypertensive heart disease with heart failure; J44.9 Chronic obstructive pulmonary disease, unspecified
CPT/HCPCS: 93005; 99285; 36415; 87040; 87086; 82962; 85025; 85610; 87088; 80053; 81001; 87186; 82803; 83605; 71045; 93010; A9270 ×2

== ENCOUNTER 2019-11-05 13:30 | Emergency (ER) | payer MEDICARE, OTHER ==
--- NOTE | 2019-11-05 14:08 | ER Document Report ---
ED Medical Screen (RME) - General Chief Complaint: Back Pain Stated Complaint: BACK PAIN Time Seen by Provider: 11/05/19 14:02 Primary Care Provider: RANDA AGUIRRE MD [Primary Care Provider] - Follow up as needed Notes: Patient is an 89-year-old male with a history of atrial fibrillation who presents to the emergency department with a chief complaint of back pain. Patient states that about 6 months ago he hurt his back. States that he did not get it checked out. Today he was doing and felt more pain in his back. Patient is currently wheelchair-bound. He took 4 Tylenol this morning and stated that it helped a little bit. Exam: Exam limited due to patient in sitting position. I have greeted and performed a rapid initial assessment of this patient. A comprehensive ED assessment and evaluation of the patient, analysis of test results and completion of medical decision making process will be conducted by an additional ED providers. TRAVEL OUTSIDE OF THE [place] IN LAST 30 DAYS: No - Related Data Allergies/Adverse Reactions: No Known Allergies Allergy (Verified 11/05/19 14:02) Past Medical History - Past Medical History Cardiac Medical History: Reports: Hx Atrial Fibrillation, Hx Congestive Heart Failure, Hx Hypercholesterolemia, Hx Hypertension Pulmonary Medical History: Reports: Hx COPD Neurological Medical History: Denies: Hx Seizures Endocrine Medical History: Denies: Hx Diabetes Mellitus Type 1, Hx Diabetes Mellitus Type 2, Hx Hyperthyroidism, Hx Hypothyroidism Renal/ Medical History: Denies: Hx Peritoneal Dialysis GI Medical History: Denies: Hx Cirrhosis, Hx Hepatitis Musculoskeltal Medical History: Reports Hx Arthritis, Denies Hx Gout Skin Medical History: Denies Hx Eczema, Denies Hx Psoriasis Psychiatric Medical History: Denies: Hx Depression Traumatic Medical History: Reports: Hx Fractures Infectious Medical History: Denies: Hx Hepatitis Past Surgical History: Reports: Hx Orthopedic Surgery - left knee replacement, Other - VATS 2013 - Immunizations Hx Diphtheria, Pertussis, Tetanus Vaccination: No Physical Exam - Vital signs Vitals: Temp Pulse Resp BP Pulse Ox 98.9 F 62 24 H 128/86 H 97 11/05/19 13:38 11/05/19 13:38 11/05/19 13:38 11/05/19 13:38 11/05/19 13:38 Course - Vital Signs Vital signs: Temp Pulse Resp BP Pulse Ox 98.9 F 62 24 H 128/86 H 97 11/05/19 13:38 11/05/19 13:38 11/05/19 13:38 11/05/19 13:38 11/05/19 13:38 Doctor's Discharge - Discharge Referrals: RANDA AGUIRRE MD [Primary Care Provider] - Follow up as needed
[2019-11-05 14:31] LABS: ABSOLUTE BASOPHILS # (AUTO) 0.1 10^3/uL (0.0-0.2); ABSOLUTE EOSINOPHILS # (AUTO) 0.2 10^3/uL (0.0-0.6); ABSOLUTE NEUT (AUTO) 9.5 10^3/uL (1.7-8.2); BASOPHILS % (AUTO) 0.8 % (0-2); EOSINOPHILS % (AUTO) 1.5 % (0-6); HEMATOCRIT 37.6 % (37.9-51.0); HEMOGLOBIN 12.7 g/dL (13.5-17.0); LYMPHOCYTES % (AUTO) 15.6 % (13-45); MEAN CORPUSCULAR HEMOGLOBIN 30.9 pg (27.0-33.4); MEAN CORPUSCULAR HGB CONC 33.8 g/dL (32.0-36.0); MEAN CORPUSCULAR VOLUME 91 fl (80-97); PLATELET COUNT 280 10^3/uL (150-450); RED BLOOD COUNT 4.11 10^6/uL (4.35-5.55); RED CELL DISTRIBUTION WIDTH 14.9 % (11.5-14.0); SEGMENTED NEUTROPHILS % (AUTO) 74.1 % (42-78); TOTAL CELLS COUNTED % (AUTO) 100 %; WHITE BLOOD COUNT 12.9 10^3/uL (4.0-10.5)
[2019-11-05 14:50] LABS: ALBUMIN 4.2 g/dL (3.5-5.0); ALKALINE PHOSPHATASE 46 U/L (38-126); ANION GAP 12 (5-19); ASPARTATE AMINO TRANSFERASE 23 U/L (17-59); BILIRUBIN,DIRECT 0.1 mg/dL (0.0-0.4); BILIRUBIN,TOTAL 0.6 mg/dL (0.2-1.3); BLOOD UREA NITROGEN 35 mg/dL (7-20); CALCIUM 10.6 mg/dL (8.4-10.2); CARBON DIOXIDE 29 mmol/L (22-30); CHLORIDE 93 mmol/L (98-107); GLUCOSE 124 mg/dL (75-110); TOTAL PROTEIN 7.1 g/dL (6.3-8.2)
--- NOTE | 2019-11-05 15:05 | RADIOLOGY REPORT (SQ) ---
EXAM DESCRIPTION: L SPINE WHOLE IMAGES COMPLETED DATE/TIME: 11/05/2019 2:37 pm REASON FOR STUDY: low back pain COMPARISON: None. NUMBER OF VIEWS: Five views including obliques. TECHNIQUE: AP, lateral, oblique, and sacral radiographic images acquired of the lumbar spine. LIMITATIONS: None. FINDINGS: MINERALIZATION: Normal. SEGMENTATION: Normal. No transitional anatomy. ALIGNMENT: Degenerative convex leftward lumbar curvature VERTEBRAE: Chronic appearing 25% loss of height at L4 DISCS: Diffuse disc space loss of height with vertebral body endplate sclerosis POSTERIOR ELEMENTS: Diffuse facet arthropathy HARDWARE: None in the spine. PARASPINAL SOFT TISSUES: Calcified abdominal aorta without aneurysm PELVIS: SI joints sclerotic OTHER: No other significant finding. IMPRESSION: Diffuse degenerative changes. No gross acute fracture or malalignment TECHNICAL DOCUMENTATION: JOB ID: [id number] [employer]- All Rights Reserved Reading location - IP/workstation name: [email or web address]
[2019-11-05] MEDS ORDERED: LIDOCAINE 5% (700 MG) TRANSDERMAL ADH..PATCH TP ONE (17:46)
--- NOTE | 2019-11-05 17:47 | ER Document Report ---
ED General - General Chief Complaint: Back Pain Stated Complaint: BACK PAIN Time Seen by Provider: 11/05/19 14:02 Primary Care Provider: RANDA AGUIRRE MD [Primary Care Provider] - Follow up as needed Mode of Arrival: Medic Information source: Patient TRAVEL OUTSIDE OF THE [place] IN LAST 30 DAYS: No - HPI Onset: Other - since April 2019 Onset/Duration: Sudden - patient had a sudden movement causing acute on chronic back pain today, Gradual - back pain has been gradually worsening for months Quality of pain: Sharp Severity: Severe Pain Level: 5 Associated symptoms: None Exacerbated by: Movement, Walking, Other - twisting at his waist Relieved by: Remaining still Similar symptoms previously: Yes - patient has had low back pain for months Recently seen / treated by doctor: No Notes: 89 year old male with a history of AFib, CHF, HTN, HLD, COPD, Arthritis here in the ER for acute on chronic back pain. The patient says he had a mechanical fall in April 2019 and he has been having low back pain since then. The patient says he has had trouble walking over the last several months but he usually could get up and stand for periods at a time. The patient says today once he got up he twisted the wrong way and felt worsening pain in his low back. The patient took four Tylenol Tablets at home prior to calling EMS and this seemed to help initially but the pain is now coming back. The patient denies new bowel or bladder incontinence (he says he has had trouble with urinary incontinence for years now), numbness, tingling, weakness. The patient has appointment with Dr. Rodriguez of Orthopedics in the next few days. - Related Data Allergies/Adverse Reactions: No Known Allergies Allergy (Verified 11/05/19 14:02) Home Medications: dilitiazam eliquis furosemide Past Medical History - General Information source: Patient - Social History Smoking Status: Never Smoker Chew tobacco use (# tins/day): No Frequency of alcohol use: beer or wine with dinner Drug Abuse: None Family History: CAD, Hypertension Patient has homicidal ideation: No - Past Medical History Cardiac Medical History: Reports: Hx Atrial Fibrillation, Hx Congestive Heart Failure, Hx Hypercholesterolemia, Hx Hypertension Pulmonary Medical History: Reports: Hx COPD Neurological Medical History: Denies: Hx Seizures Endocrine Medical History: Denies: Hx Diabetes Mellitus Type 1, Hx Diabetes Mellitus Type 2, Hx Hyperthyroidism, Hx Hypothyroidism Renal/ Medical History: Denies: Hx Peritoneal Dialysis GI Medical History: Denies: Hx Cirrhosis, Hx Hepatitis Musculoskeletal Medical History: Reports Hx Arthritis, Denies Hx Gout Skin Medical History: Denies Hx Eczema, Denies Hx Psoriasis Psychiatric Medical History: Denies: Hx Depression Traumatic Medical History: Reports: Hx Fractures Infectious Medical History: Denies: Hx Hepatitis Past Surgical History: Reports: Hx Orthopedic Surgery - left knee replacement, Other - VATS 2012 - Immunizations Hx Diphtheria, Pertussis, Tetanus Vaccination: No Hx Pneumococcal Vaccination: 10/22/12 Review of Systems - Review of Systems Constitutional: No symptoms reported EENT: No symptoms reported Cardiovascular: No symptoms reported Respiratory: No symptoms reported Gastrointestinal: No symptoms reported Genitourinary: No symptoms reported Male Genitourinary: No symptoms reported Musculoskeletal: Back pain Skin: No symptoms reported Hematologic/Lymphatic: No symptoms reported Neurological/Psychological: No symptoms reported -: Yes All other systems reviewed and negative Physical Exam - Vital signs Vitals: Temp Pulse Resp BP Pulse Ox 98.9 F 62 24 H 128/86 H 97 11/05/19 13:38 11/05/19 13:38 11/05/19 13:38 11/05/19 13:38 11/05/19 13:38 - Notes Notes: Reviewed vital signs and nursing note as charted by RN. CONSTITUTIONAL: Well-appearing, well-nourished; attentive, alert and interactive with good eye contact; acting appropriately for age HEAD: Normocephalic; atraumatic; No swelling EYES: PERRL; Conjunctivae clear, no drainage; EOMI ENT: External ears without lesions; External auditory canal is patent; TMs without erythema, landmarks clear and well visualized; no rhinorrhea; Pharynx without erythema or lesions, no tonsillar hypertrophy, airway patent, mucous membranes pink and moist NECK: Supple, no cervical lymphadenopathy, no masses CARD: Regular rate and rhythm; no murmurs, no rubs, no gallops, capillary refill < 2 seconds, symmetric pulses RESP: Respiratory rate and effort are normal. There is normal chest excursion. No respiratory distress, no retractions, no stridor, no nasal flaring, no accessory muscle use. The lungs are clear to auscultation bilaterally, no wh eezing, no rales, no rhonchi. clean up person to palpation in low back with no step offs or skin changes. Patient has pain with straight leg raise on both sides when his legs are raised to 45 degrees or more. ABD/GI: Normal bowel sounds; non-distended; soft, non-tender, no rebound, no guarding, no palpable organomegaly EXT: Normal ROM in all joints; non-tender to palpation; no effusions, no edema SKIN: Normal color for age and race; warm; dry; good turgor; no acute lesions noted NEURO: No facial asymmetry; Moves all extremities equally; Motor and sensory function intact Course - Vital Signs Vital signs: Temp Pulse Resp BP Pulse Ox 98.9 F 62 24 H 128/86 H 97 11/05/19 14:02 11/05/19 13:38 11/05/19 13:38 11/05/19 13:38 11/05/19 13:38 - Laboratory Result Diagrams: 11/05/19 14:20 11/05/19 14:20 Laboratory results interpreted by me: 11/05/19 11/05/19 14:20 14:20 WBC 12.9 H RBC 4.11 L Hgb 12.7 L Hct 37.6 L RDW 14.9 H Absolute Neuts (auto) 9.5 H Sodium 134.1 L Chloride 93 L BUN 35 H Est GFR (MDRD) Non-Af 56 L Glucose 124 H Calcium 10.6 H - Diagnostic Test Radiology reviewed: Image reviewed, Reports reviewed Discharge - Discharge Clinical Impression: Degenerative disc disease, lumbar Back pain Qualifiers: Back pain location: low back pain Chronicity: chronic Back pain laterality: unspecified Sciatica presence: without sciatica Qualified Code(s): M54.5 - Low back pain; G89.29 - Other chronic pain Condition: Stable Disposition: HOME, SELF-CARE Instructions: Low Back Pain ([facility]) Additional Instructions: Use low dose Motrin (200mg) along with over the counter Tylenol for back pain. Use the prescribed Lidoderm Patches for back pain as well. Use the prescribed Tramadol for back pain which is not well controlled. Also use a heating pad. Follow up with an Orthopedic Surgeon (Dr. Rodriguez) Prescriptions: Tramadol HCl [Ultram 50 mg Tablet] 50 mg PO Q8H PRN #12 tab PRN Reason: Referrals: RANDA AGUIRRE MD [Primary Care Provider] - Follow up as needed
[2019-11-05] MEDS ORDERED: NAPROXEN 250 MG TABLET PO ONE (17:48)
[2019-11-05] MEDS ORDERED: TRAMADOL HCL 50 MG TABLET PO ONE (17:48)
[2019-11-05 20:13] VITALS: BP 127/76
== END 2019-11-05 20:15 | disposition home or self-care (01) ==
LOC: ER 13:30
DX: M51.36 Other intervertebral disc degeneration, lumbar region (principal); M54.5 Low back pain; I48.91 Unspecified atrial fibrillation; I50.9 Heart failure, unspecified; I11.0 Hypertensive heart disease with heart failure; J44.9 Chronic obstructive pulmonary disease, unspecified; Z96.652 Presence of left artificial knee joint
CPT/HCPCS: 99283; 36415; 85025; 80053; 72110; A9270 ×3

== ENCOUNTER 2019-11-09 16:28 | Inpatient (IN) | payer MEDICARE, OTHER ==
[2019-11-09 17:20] LABS: ABSOLUTE BASOPHILS # (AUTO) 0.1 10^3/uL (0.0-0.2); ABSOLUTE EOSINOPHILS # (AUTO) 0.1 10^3/uL (0.0-0.6); ABSOLUTE LYMPHOCYTES (AUTO) 1.7 10^3/uL (0.5-4.7); ABSOLUTE MONOCYTES (AUTO) 1.5 10^3/uL (0.1-1.4); ABSOLUTE NEUT (AUTO) 11.9 10^3/uL (1.7-8.2); BASOPHILS % (AUTO) 0.7 % (0-2); EOSINOPHILS % (AUTO) 0.8 % (0-6); HEMATOCRIT 36.2 % (37.9-51.0); HEMOGLOBIN 12.4 g/dL (13.5-17.0); LYMPHOCYTES % (AUTO) 11.1 % (13-45); MEAN CORPUSCULAR HGB CONC 34.2 g/dL (32.0-36.0); MEAN CORPUSCULAR VOLUME 91 fl (80-97); MONOCYTES % (AUTO) 9.7 % (3-13); PLATELET COUNT 284 10^3/uL (150-450); RED BLOOD COUNT 3.99 10^6/uL (4.35-5.55); RED CELL DISTRIBUTION WIDTH 15.1 % (11.5-14.0); SEGMENTED NEUTROPHILS % (AUTO) 77.7 % (42-78); TOTAL CELLS COUNTED % (AUTO) 100 %; WHITE BLOOD COUNT 15.4 10^3/uL (4.0-10.5)
--- NOTE | 2019-11-09 17:22 | RADIOLOGY REPORT (SQ) ---
EXAM DESCRIPTION: CHEST SINGLE VIEW IMAGES COMPLETED DATE/TIME: 11/09/2019 5:10 pm REASON FOR STUDY: SOB COMPARISON: 11/16/2018 EXAM PARAMETERS: NUMBER OF VIEWS: One view. TECHNIQUE: Single frontal radiographic view of the chest acquired. RADIATION DOSE: NA LIMITATIONS: None. FINDINGS: LUNGS AND PLEURA: No opacities, masses or pneumothorax. No pleural effusion. MEDIASTINUM AND HILAR STRUCTURES: No masses. Contour normal. HEART AND VASCULAR STRUCTURES: Heart normal in size for AP technique. Normal vasculature. BONES: No acute findings. HARDWARE: None in the chest. OTHER: No other significant finding. IMPRESSION: No evidence of acute cardiopulmonary abnormality. TECHNICAL DOCUMENTATION: JOB ID: [id number] 2010 [employer]- All Rights Reserved Reading location - IP/workstation name: [email or web address]
[2019-11-09 17:27] LABS: ALBUMIN 3.9 g/dL (3.5-5.0); ALKALINE PHOSPHATASE 48 U/L (38-126); ANION GAP 12 (5-19); ASPARTATE AMINO TRANSFERASE 27 U/L (17-59); BILIRUBIN,DIRECT 0.2 mg/dL (0.0-0.4); BLOOD UREA NITROGEN 31 mg/dL (7-20); CALCIUM 11.1 mg/dL (8.4-10.2); CARBON DIOXIDE 32 mmol/L (22-30); CHLORIDE 92 mmol/L (98-107); GLUCOSE 130 mg/dL (75-110); POTASSIUM 3.6 mmol/L (3.6-5.0); TOTAL PROTEIN 7.1 g/dL (6.3-8.2)
--- NOTE | 2019-11-09 17:39 | EKG REPORT ---
SEVERITY:- ABNORMAL ECG - SINUS TACHYCARDIA VENTRICULAR BIGEMINY CONSIDER ANTEROSEPTAL INFARCT : Confirmed by: Damon Woodard MD 09-Nov-2019 17:39:06
--- NOTE | 2019-11-09 20:40 | ER Document Report ---
ED General - General Chief Complaint: Breathing Difficulty Stated Complaint: BACK PAIN Time Seen by Provider: 11/09/19 20:11 Notes: 89-year-old male with a past medical history of A. fib, CHF, hypertension, hyperlipidemia, COPD arthritis presents via EMS. Patient states that he does not know why he is here. He states that he does not feel short of breath. States he is not currently in any pain but sitting up causes him back pain. He denies any additional symptoms at this time. Patient is alert and oriented to place and person but not time. TRAVEL OUTSIDE OF THE [place] IN LAST 30 DAYS: No - Related Data Allergies/Adverse Reactions: No Known Allergies Allergy (Verified 11/05/19 14:02) Past Medical History - Social History Smoking Status: Unknown if Ever Smoked Chew tobacco use (# tins/day): No Frequency of alcohol use: None Drug Abuse: None Family History: CAD, Hypertension - Past Medical History Cardiac Medical History: Reports: Hx Atrial Fibrillation, Hx Congestive Heart Failure, Hx Hypercholesterolemia, Hx Hypertension Pulmonary Medical History: Reports: Hx COPD Neurological Medical History: Denies: Hx Seizures Endocrine Medical History: Denies: Hx Diabetes Mellitus Type 1, Hx Diabetes Mellitus Type 2, Hx Hyperthyroidism, Hx Hypothyroidism Renal/ Medical History: Denies: Hx Peritoneal Dialysis GI Medical History: Denies: Hx Cirrhosis, Hx Hepatitis Musculoskeletal Medical History: Reports Hx Arthritis, Denies Hx Gout Skin Medical History: Denies Hx Eczema, Denies Hx Psoriasis Psychiatric Medical History: Denies: Hx Depression Traumatic Medical History: Reports: Hx Fractures Infectious Medical History: Denies: Hx Hepatitis Past Surgical History: Reports: Hx Orthopedic Surgery - left knee replacement, Other - VATS 2012 - Immunizations Hx Diphtheria, Pertussis, Tetanus Vaccination: No Hx Pneumococcal Vaccination: 10/22/12 Review of Systems - Review of Systems Constitutional: See HPI EENT: See HPI Cardiovascular: See HPI Respiratory: See HPI Neurological/Psychological: Confusion. denies: Dementia, Depression Physical Exam - Vital signs Vitals: Temp 98.7 F 11/09/19 16:29 Interpretation: Hypertensive - Notes Notes: Adult General: GENERAL: Alert, interacts poorly. No acute distress. HEAD: Normocephalic, atraumatic EYES: Pupils equal, round and reactive to light. Extraocular movements intact. ENT: Oral mucosa dry, tongue midline. Oropharynx unremarkable. Airway patent. Nares patent. NECK: Full range of motion. Supple. Trachea midline. No lymphadenopathy. LUNGS: anterior upper lung mcmillan are clear. Unable to exam other lung mcmillan as patient is unwilling to sit up HEART: irregularly, irregular ABDOMEN: Soft, nontender. Nondistended. (-) [place] sign. Bowel sounds present in all 4 quadrants. GENITOURINARY: Deferred EXTREMITIES: Moves all four extremities on command. No edema, normal radial and dorsal pedis pulses bilaterally. No cyanosis. BACK: No cervical, thoracic, lumbar midline tenderness. No saddle anesthesia, normal distal neurovascular exam. Moves all extremities with full range of motion. NEUROLOGICAL: Alert and oriented x2. Normal speech. Cranial nerves II through XII grossly intact. Strength 4/ 5 in all extremities. PSYCH: Normal affect, normal mood. SKIN: Warm, dry, normal turgor. No rashes or lesions noted. Course - Re-evaluation Re-evalutation: 11/09/19 21:35 I called the son of the patient. He reports that he has had altered mental status and not acting like himself for about 5 days. Also reports that he has fluid on his lungs and chronic low back pain due to a prior injury and is immobile. Patient is on metolazone, Lasix, aspirin, mag, potassium, diltiazem, BuSpar, Depakote, Pepcid, Eliquis, Flomax, Lipitor and TriCor. States that at home patient said that he was short of breath and had low back pain. EMS said he was 80% on room air. Patient was reevaluated he is still resting comfortably in the bed. His SPO2 is at 98% on 2 L nasal cannula. Is currently in A. fib, he has a history of A. fib. Heart rate is 86. Chest x-ray shows no pleural effusions. CBC shows leukocytosis of 15.4. No significant changes from prior imaging study. 11/09/19 23:54 Patient was reevaluated. Patient is slow to respond to answers. His urine is unremarkable. 11/10/19 00:15 Patient was reevaluated and patient is now agreeable to rolling over so we can evaluate his back. There is mild skin break down on his bottom but no signs of cellulitis or abscess. His low back is tender to palpation. He is still unable to describe his pain or inform provider if this is worsening pain. Discussed patient with Dr. Martin. His CPK is normal, low suspicion for a post ictal state causing his symtoms. As he was given tramadol 5 days ago, concern is that this is what is affecting his mental status. Dr. Martin recommend narcan. After administered will reasses patient. 11/10/19 01:58 Patient was reassessed. Continues to be alert and oriented x 2. Oxygen drops in the 80's to low 90's when not on nasal canula. 11/10/19 02:[address] Sims who agrees to admission to a medical bed. - Vital Signs Vital signs: Temp Pulse Resp BP Pulse Ox 98.0 F 90 20 130/81 H 96 11/10/19 04:36 11/10/19 04:36 11/10/19 04:36 11/10/19 04:36 11/10/19 04:36 - Laboratory Result Diagrams: 11/09/19 16:35 11/09/19 16:35 Laboratory results interpreted by me: 11/09/19 11/09/19 11/09/19 16:35 16:35 16:35 WBC 15.4 H RBC 3.99 L Hgb 12.4 L Hct 36.2 L RDW 15.1 H Lymph % (Auto) 11.1 L Absolute Neuts (auto) 11.9 H Absolute Monos (auto) 1.5 H VBG pH Sodium 135.5 L Chloride 92 L Carbon Dioxide 32 H BUN 31 H Est GFR (MDRD) Non-Af 56 L Glucose 130 H Calcium 11.1 H NT-Pro-B Natriuret Pep 1120 H Valproic Acid 11/09/19 11/09/19 16:35 21:28 WBC RBC Hgb Hct RDW Lymph % (Auto) Absolute Neuts (auto) Absolute Monos (auto) VBG pH 7.44 H Sodium Chloride Carbon Dioxide BUN Est GFR (MDRD) Non-Af Glucose Calcium NT-Pro-B Natriuret Pep Valproic Acid 27.5 L - EKG Interpretation by Me Additional EKG results interpreted by me: 11/10/19 02:29 sinus tachycardic at 109, pr interval 112. qt 304. No st segment elevations or depressions. Discharge - Discharge Clinical Impression: Hypoxia Leukocytosis Qualifiers: Leukocytosis type: unspecified Qualified Code(s): D72.829 - Elevated white blood cell count, unspecified Altered mental status Qualifiers: Altered mental status type: unspecified Qualified Code(s): R41.82 - Altered mental status, unspecified Condition: Stable Disposition: ADMITTED INPATIENT Admitting Provider: Levi (Hospitalist) Unit Admitted: Medical Floor
[2019-11-09 21:39] LABS: CREATINE KINASE MB 1.44 ng/mL (<4.55); TROPONIN I 0.028 ng/mL
--- NOTE | 2019-11-09 21:42 | RADIOLOGY REPORT (SQ) ---
INDICATION: AMS. COMPARISON: October 16, 2018 CORRELATION: None TECHNIQUE: Noncontrast spiral axial CT images were obtained from the skull base to vertex. This exam was performed according to our departmental dose-optimization program, which includes automated exposure control, adjustment of the mA and/or kV according to patient size and/or use of iterative reconstruction techniques. FINDINGS: There is no evidence of acute intracranial hemorrhage, midline shift, mass effect or mass lesion. Garcia-white differentiation is normal. There is no evidence of acute large territory infarct. Ventricles and extracerebral spaces are within normal limits, for age. The visualized paranasal sinuses demonstrate right maxillary sinusitis, similar to prior. The orbits and eyeballs are unremarkable. The mastoid air cells are clear. Skull base and calvarium appear intact. IMPRESSION: No acute intracranial process is identified. No adverse change
[2019-11-09 21:48] LABS: VENOUS BLOOD BASE EXCESS 3.9 mmol/L; VENOUS BLOOD HCO3 28.4 mmol/L (20-32); VENOUS BLOOD PCO2 42.4 mmHg (35-63); VENOUS BLOOD PH 7.44 (7.30-7.42)
[2019-11-09 22:46] LABS: APPEARANCE,URINE CLEAR; BILIRUBIN,URINE NEGATIVE (NEGATIVE); COLOR,URINE YELLOW; GLUCOSE, URINE NEGATIVE (NEGATIVE); KETONES,URINE NEGATIVE (NEGATIVE); LEUKOCYTE ESTERASE,URINE NEGATIVE (NEGATIVE); NITRITE,URINE NEGATIVE (NEGATIVE); PROTEIN,URINE NEGATIVE (NEGATIVE); UROBILINOGEN,URINE NEGATIVE mg/dL (<2.0)
[2019-11-10] MEDS ORDERED: NALOXONE HCL INJ/PF 0.4 MG/1 ML SDV IV ONE (00:11)
[2019-11-10] MEDS ORDERED: MAG HYDROX/AL HYDROX/SIMETH SUSP 30 ML UDCUP PO PRN (03:25)
[2019-11-10] MEDS ORDERED: LEVALBUTEROL HCL NEB 0.63 MG/3 ML AMPUL NEB PRN (03:25)
[2019-11-10] MEDS ORDERED: PROMETHAZINE HCL INJ 25 MG/1 ML VIAL IV PRN (03:25)
[2019-11-10] MEDS ORDERED: MAGNESIUM HYDROXIDE SUSP 30 ML UDCUP PO PRN (03:25)
[2019-11-10] MEDS ORDERED: LORAZEPAM INJ 2 MG/1 ML VIAL IV PRN (03:29)
[2019-11-10] MEDS ORDERED: HYDRALAZINE HCL INJ/PF 20 MG/1 ML SDV IV PRN (03:29)
[2019-11-10] MEDS ORDERED: GUAIFENESIN SYRP 200 MG/10 ML UDC PO PRN (03:29)
--- NOTE | 2019-11-10 04:57 | PDOC H&P ---
History of Present Illness Admission Date/PCP: 11/10/2019 02:42 RANDA AGUIRRE MD Patient complains of: Dyspnea History of Present Illness: JEFFREY GORDILLO is a 89 year old male who presented to the emergency room from home via EMS for dyspnea. Patient is awake and alert but is confused and unable to provide reliable historical information. His family indicated that he is developed worsening dyspnea over the last few days and has become increasingly confused as his respiratory status worsened. In the emergency room the patient was found to have a chest x-ray which revealed no acute changes. His BNP was 1120 (questionably significant elevation for age). He was also noted to have a white blood count of 15,400 but his white blood count has been mildly to moderately elevated on an essentially continuous basis for the last year. He was noted to have acute respiratory failure with hypoxia requiring supplemental oxygen in order to maintain an an adequate O2 saturation. He was subsequently admitted to the hospital for further evaluation and treatment. Past Medical History Past Medical History: The patient is confused and unreliable as a historical source therefore information presented here is obtained from the best available reliable source. Cardiac Medical History: Reports: Atrial Fibrillation, Congestive Heart Failure, Hyperlipidema, Hypertension Pulmonary Medical History: Reports: Chronic Obstructive Pulmonary Disease (COPD) Denies: Asthma EENT Medical History: Denies: Cataracts, Ears - Hearing aids Neurological Medical History: Denies: Hemorrhagic CVA, Ischemic CVA, Seizures Endocrine Medical History: Denies: Diabetes Mellitus Type 1, Diabetes Mellitus Type 2, Hyperthyroidism, Hypothyroidism Renal/ Medical History: Reports: Other - Benign prostatic hyperplasia Denies: Chronic Kidney Disease, Nephrolithiasis Malignancy Medical History: Reports: None GI Medical History: Denies: Cirrhosis, Crohn's Disease, Gastroesophageal Reflux Disease, Hepatitis, Peptic Ulcer Disease, Ulcerative Colitis Musculoskeltal Medical History: Reports: Arthritis, Gout Skin Medical History: Denies: Eczema, Psoriasis Psychiatric Medical History: Reports: Tobacco Dependency Denies: Alcohol Dependency, Depression, Substance Abuse Traumatic Medical History: Reports: None Hematology: Denies: Anemia, Bleeding Tendencies Infectious Medical History: Reports: None Past Surgical History Past Surgical History: The patient is confused and unreliable as a historical source therefore information presented here is obtained from the best available reliable source. Past Surgical History: Reports: Orthopedic Surgery - left knee replacement, Other - VATS 2013 Social History Information Source: Relative, [facility] Records Lives with: Spouse/Significant other Smoking Status: Former Smoker Electronic Cigarette use?: No Frequency of Alcohol Use: None Hx Recreational Drug Use: No Drugs: None Hx Prescription Drug Abuse: No Past Social History Note: The patient is confused and unreliable as a historical source therefore information presented here is obtained from the best available reliable source. - Advance Directive Resuscitation Status: Full Code Surrogate healthcare decision maker:: Jaguar Gordillo Family History Family History: CAD, Hypertension Family History: The patient is confused and unreliable as a historical source therefore i nformation presented here is obtained from the best available reliable source. Parental Family History Reviewed: Yes Children Family History Reviewed: No Sibling(s) Family History Reviewed.: Yes Medication/Allergy Home Medications: Tamsulosin HCl 0.4 mg PO DAILY 10/22/12 Magnesium Oxide [Mag-Ox 400 mg Tablet] 400 mg PO DAILY 10/10/18 Furosemide [Lasix 40 mg Tablet] 40 mg PO BID 10/11/18 Aspirin [Aspirin 81 mg Chewable Tablet] 81 mg PO DAILY #30 tab.chew 10/13/18 Diltiazem HCl [Cardizem 30 mg Tablet] 30 mg PO Q8 #90 tablet 10/13/18 Febuxostat [Uloric 40 mg Tablet] 40 mg PO DAILY 10/17/18 Lidocaine [Lidoderm 5% (700 mg) Transdermal Patch] 1 patch TP DAILY #30 adh..patch 11/05/19 Tramadol HCl [Ultram 50 mg Tablet] 50 mg PO Q8H PRN #12 tab 11/05/19 Allergies/Adverse Reactions: No Known Allergies Allergy (Verified 11/05/19 14:02) Review of Systems ROS unobtainable: Due to mental status - Confusion/altered mental status Physical Exam Vital Signs: Temp Pulse Resp BP Pulse Ox 98.7 F 8 L 132/68 H 97 11/09/19 16:29 11/10/19 02:01 11/10/19 01:31 11/10/19 02:01 Intake & Output 11/08/19 11/09/19 11/10/19 23:59 23:59 23:59 Weight 98.4 kg General appearance: PRESENT: no acute distress, cooperative, other - Confused Head exam: PRESENT: atraumatic, normocephalic Eye exam: PRESENT: conjunctiva pink. ABSENT: conjunctival injection, scleral icterus Ear exam: PRESENT: normal external ear exam. ABSENT: bleeding, drainage Mouth exam: PRESENT: dry mucosa, neck supple Neck exam: ABSENT: thyromegaly, tracheal deviation Respiratory exam: PRESENT: decreased breath sounds - Moderately decreased breath sounds throughout all [place], prolonged expiratory phas - Moderately prolonged expiratory phase throughout all [place] with decreased air movement, symmetrical, wheezes - Mild end expiratory wheezes in all [place] Cardiovascular exam: PRESENT: RRR. ABSENT: clicks, gallop, rubs Pulses: PRESENT: normal radial pulses, normal dorsalis pedis pul Vascular exam: PRESENT: normal capillary refill. ABSENT: pallor GI/Abdominal exam: PRESENT: normal bowel sounds, soft Rectal exam: PRESENT: deferred Extremities exam: ABSENT: joint swelling, pedal edema Musculoskeletal exam: ABSENT: deformity, dislocation Neurological exam: PRESENT: alert, altered - Confused and poorly oriented, awake, CN II-XII grossly intact Psychiatric exam: PRESENT: appropriate affect, normal mood, other - Confused Skin exam: PRESENT: dry, intact, warm. ABSENT: jaundice, rash, urticaria Results Laboratory Results: 11/09/19 16:35 11/09/19 16:35 11/09/19 11/09/19 11/09/19 16:35 16:35 21:28 WBC 15.4 H RBC 3.99 L Hgb 12.4 L Hct 36.2 L MCV 91 MCH 31.0 MCHC 34.2 RDW 15.1 H Plt Count 284 Seg Neutrophils % 77.7 VBG pH 7.44 H VBG pCO2 42.4 VBG HCO3 28.4 VBG Base Excess 3.9 Sodium 135.5 L Potassium 3.6 Chloride 92 L Carbon Dioxide 32 H Anion Gap 12 BUN 31 H Creatinine 1.22 Est GFR ( Amer) > 60 Glucose 130 H Lactic Acid Calcium 11.1 H Total Bilirubin 1.0 AST 27 Alkaline Phosphatase 48 Total Protein 7.1 Albumin 3.9 Urine Color Urine Appearance Urine pH Ur Specific [place] Urine Protein Urine Glucose (UA) Urine Ketones Urine Blood Urine Nitrite Ur Leukocyte Esterase Urine RBC (Auto) 11/09/19 11/10/19 21:28 00:27 WBC RBC Hgb Hct MCV MCH MCHC RDW Plt Count Seg Neutrophils % VBG pH VBG pCO2 VBG HCO3 VBG Base Excess Sodium Potassium Chloride Carbon Dioxide Anion Gap BUN Creatinine Est GFR ( Amer) Glucose Lactic Acid 1.1 Calcium Total Bilirubin AST Alkaline Phosphatase Total Protein Albumin Urine Color YELLOW Urine Appearance CLEAR Urine pH 7.0 Ur Specific [place] 1.010 Urine Protein NEGATIVE Urine Glucose (UA) NEGATIVE Urine Ketones NEGATIVE Urine Blood NEGATIVE Urine Nitrite NEGATIVE Ur Leukocyte Esterase NEGATIVE Urine RBC (Auto) 1 11/09/19 11/09/19 11/09/19 16:35 16:35 16:35 Creatine Kinase 86 CK-MB (CK-2) 1.44 Troponin I 0.028 NT-Pro-B Natriuret Pep 1120 H 11/09/19 23:56 Creatine Kinase CK-MB (CK-2) Troponin I 0.019 NT-Pro-B Natriuret Pep Impressions: Chest X-Ray 11/09/19 16:47 IMPRESSION: No evidence of acute cardiopulmonary abnormality. Head CT 11/09/19 20:55 IMPRESSION: No acute intracranial process is identified. No adverse change Assessment and Plan - Diagnosis (1) Acute exacerbation of chronic obstructive pulmonary disease Is this a current diagnosis for this admission?: Yes (2) Acute respiratory failure with hypoxia Is this a current diagnosis for this admission?: Yes (3) Acute encephalopathy Is this a current diagnosis for this admission?: Yes (4) Leukocytosis Qualifiers: Leukocytosis type: unspecified Qualified Code(s): D72.829 - Elevated white blood cell count, unspecified Is this a current diagnosis for this admission?: Yes (5) HTN (hypertension) Qualifiers: Hypertension type: essential hypertension Qualified Code(s): I10 - Essentia l (primary) hypertension Is this a current diagnosis for this admission?: Yes (6) Hyperlipidemia Is this a current diagnosis for this admission?: Yes (7) Chronic atrial fibrillation Is this a current diagnosis for this admission?: Yes (8) BPH (benign prostatic hyperplasia) Qualifiers: Lower urinary tract symptom presence: unspecified whether lower urinary tract symptoms present Qualified Code(s): N40.0 - Benign prostatic hyperplasia without lower urinary tract symptoms Is this a current diagnosis for this admission?: Yes - Plan Summary Summary: Patient is admitted to the medical floor where he will receive routine supportive and symptomatic cares. Patient's respiratory failure will be treated with supplemental oxygen via nasal cannula and/or noninvasive airway pressure support devices such as BiPAP or CPAP if necessary in order to maintain an adequate oxygen saturation. An aggressive pulmonary toilet will be in place utilizing nebulized Xopenex, Atrovent and Pulmicort. Patient will be treated with oral Levaquin as part of the treatment of his acute exacerbation of COPD. CBCs, metabolic profiles, magnesium levels and further laboratory and/or radiographic investigations will be obtained as necessary. Patient will be jameel alexa with a cardiac diet. Patient's usual medications will be restarted, as appropriate, when his medication list has been verified and reconciled. Patient will receive Ativan 1 mg IV every 4 hours as needed for agitation or restlessness. - Time Time Spent with patient: Less than 15 minutes Medications reviewed and adjusted accordingly: Yes Anticipated discharge: Home - Inpatient Certification Based on my medical assessment, after consideration of the patient's comorbidities, presenting symptoms, or acuity I expect that the services needed warrant INPATIENT care.: Yes I certify that my determination is in accordance with my understanding of Medicare's requirements for reasonable and necessary INPATIENT services [42 CFR 412.3e].: Yes Medical Necessity: Need Close Monitoring Due to Risk of Patient Decompensation, Need for Nebulizer Therapy and Monitoring of Response
[2019-11-10] MEDS: DILTIAZEM HCL 30 MG TABLET PO SCH ×3 (05:04→22:18)
[2019-11-10] MEDS: ACETAMINOPHEN 325 MG TABLET PO PRN ×2 (05:04→17:42)
[2019-11-10] MEDS: METHYLPREDNISOLONE INJ 40 MG/1 ML SDV IV SCH ×3 (05:04→14:46)
[2019-11-10] MEDS ORDERED: HEPARIN SOD (PORCINE) 5,000 UNIT/ML 1 ML VIAL SUBCUT SCH (06:00)
[2019-11-10 08:35] LABS: ABSOLUTE BASOPHILS # (AUTO) 0.1 10^3/uL (0.0-0.2); ABSOLUTE LYMPHOCYTES (AUTO) 0.9 10^3/uL (0.5-4.7); ABSOLUTE MONOCYTES (AUTO) 0.6 10^3/uL (0.1-1.4); ABSOLUTE NEUT (AUTO) 14.2 10^3/uL (1.7-8.2); BASOPHILS % (AUTO) 0.6 % (0-2); EOSINOPHILS % (AUTO) 0.2 % (0-6); HEMATOCRIT 35.8 % (37.9-51.0); HEMOGLOBIN 11.9 g/dL (13.5-17.0); LYMPHOCYTES % (AUTO) 5.7 % (13-45); MEAN CORPUSCULAR HEMOGLOBIN 30.4 pg (27.0-33.4); MEAN CORPUSCULAR HGB CONC 33.3 g/dL (32.0-36.0); MEAN CORPUSCULAR VOLUME 91 fl (80-97); MONOCYTES % (AUTO) 3.9 % (3-13); PLATELET COUNT 282 10^3/uL (150-450); RED BLOOD COUNT 3.92 10^6/uL (4.35-5.55); SEGMENTED NEUTROPHILS % (AUTO) 89.6 % (42-78); TOTAL CELLS COUNTED % (AUTO) 100 %; WHITE BLOOD COUNT 15.8 10^3/uL (4.0-10.5)
[2019-11-10] MEDS: IPRATROPIUM BROMIDE 0.02% NEB 0.5 MG/2.5 ML AMPUL NEB SCH ×2 (08:35→17:13)
[2019-11-10] MEDS: LEVALBUTEROL HCL NEB 1.25 MG/3 ML AMPUL NEB SCH ×2 (08:36→17:13)
[2019-11-10] MEDS: BUDESONIDE NEB 0.5 MG/2 ML AMPUL NEB SCH ×2 (08:36→20:32)
[2019-11-10 09:28] LABS: ALBUMIN 3.6 g/dL (3.5-5.0); ALKALINE PHOSPHATASE 45 U/L (38-126); ANION GAP 13 (5-19); ASPARTATE AMINO TRANSFERASE 23 U/L (17-59); BILIRUBIN,DIRECT 0.4 mg/dL (0.0-0.4); BILIRUBIN,TOTAL 1.1 mg/dL (0.2-1.3); BLOOD UREA NITROGEN 36 mg/dL (7-20); CALCIUM 10.8 mg/dL (8.4-10.2); CARBON DIOXIDE 32 mmol/L (22-30); CHLORIDE 92 mmol/L (98-107); GLUCOSE 159 mg/dL (75-110); POTASSIUM 3.7 mmol/L (3.6-5.0); TOTAL PROTEIN 6.5 g/dL (6.3-8.2)
--- NOTE | 2019-11-10 09:47 | PDOC PROGRESS REPORT ---
Subjective Progress Note for:: 11/10/19 Subjective:: 89 year old male who presented to the emergency room from home via EMS for dyspnea. Patient is awake and alert but is confused and unable to provide reliable historical information. His family indicated that he is developed worsening dyspnea over the last few days and has become increasingly confused as his respiratory status worsened. In the emergency room the patient was found to have a chest x-ray which revealed no acute changes. His BNP was 1120 (question ably significant elevation for age). He was also noted to have a white blood count of 15,400 but his white blood count has been mildly to moderately elevated on an essentially continuous basis for the last year. He was noted to have acute respiratory failure with hypoxia requiring supplemental oxygen in order to maintain an an adequate O2 saturation. He was subsequently admitted to the hospital for further evaluation and treatment. 11/10/19-patient is comfortably sleeping in the bed pulse ox is 96% on 2 L. Not in distress. WBC is 15,800 today afebrile. Chest x-ray was normal. Reason For Visit: ACUTE RESPIRATORY FAILURE WITH HYPOXIA, Physical Exam Vital Signs: Temp Pulse Resp BP Pulse Ox 97.7 F 76 16 123/74 95 11/10/19 07:25 11/10/19 08:36 11/10/19 08:36 11/10/19 07:25 11/10/19 08:36 Intake & Output 11/09/19 11/10/19 11/11/19 06:59 06:59 06:59 Weight 93.5 kg General appearance: PRESENT: no acute distress, well-developed Head exam: PRESENT: atraumatic Eye exam: PRESENT: PERRLA Mouth exam: PRESENT: moist, tongue midline Teeth exam: PRESENT: poor dentation Neck exam: ABSENT: carotid bruit, JVD, lymphadenopathy, thyromegaly Respiratory exam: PRESENT: decreased breath sounds Cardiovascular exam: PRESENT: RRR. ABSENT: diastolic murmur, rubs, systolic murmur Pulses: PRESENT: normal dorsalis pedis pul GI/Abdominal exam: PRESENT: normal bowel sounds, soft. ABSENT: distended, guarding, mass, organolmegaly, rebound, tenderness Rectal exam: PRESENT: deferred Extremities exam: PRESENT: full ROM. ABSENT: calf tenderness, clubbing, pedal edema Neurological exam: PRESENT: alert, awake, oriented to person, oriented to place, oriented to time, oriented to situation, CN II-XII grossly intact. ABSENT: motor sensory deficit Psychiatric exam: PRESENT: appropriate affect, normal mood. ABSENT: homicidal ideation, suicidal ideation Skin exam: PRESENT: dry, intact, warm. ABSENT: cyanosis, rash Results Laboratory Results: 11/10/19 08:10 11/10/19 08:10 11/09/19 11/09/19 11/09/19 16:35 16:35 21:28 WBC 15.4 H RBC 3.99 L Hgb 12.4 L Hct 36.2 L MCV 91 MCH 31.0 MCHC 34.2 RDW 15.1 H Plt Count 284 Seg Neutrophils % 77.7 VBG pH 7.44 H VBG pCO2 42.4 VBG HCO3 28.4 VBG Base Excess 3.9 Sodium 135.5 L Potassium 3.6 Chloride 92 L Carbon Dioxide 32 H Anion Gap 12 BUN 31 H Creatinine 1.22 Est GFR ( Amer) > 60 Glucose 130 H Lactic Acid Calcium 11.1 H Magnesium Total Bilirubin 1.0 AST 27 Alkaline Phosphatase 48 Total Protein 7.1 Albumin 3.9 Urine Color Urine Appearance Urine pH Ur Specific [place] Urine Protein Urine Glucose (UA) Urine Ketones Urine Blood Urine Nitrite Ur Leukocyte Esterase Urine RBC (Auto) 11/09/19 11/10/19 11/10/19 21:28 00:27 08:10 WBC 15.8 H RBC 3.92 L Hgb 11.9 L Hct 35.8 L MCV 91 MCH 30.4 MCHC 33.3 RDW 15.0 H Plt Count 282 Seg Neutrophils % 89.6 H VBG pH VBG pCO2 VBG HCO3 VBG Base Excess Sodium Potassium Chloride Carbon Dioxide Anion Gap BUN Creatinine Est GFR ( Amer) Glucose Lactic Acid 1.1 Calcium Magnesium Total Bilirubin AST Alkaline Phosphatase Total Protein Albumin Urine Color YELLOW Urine Appearance CLEAR Urine pH 7.0 Ur Specific [place] 1.010 Urine Protein NEGATIVE Urine Glucose (UA) NEGATIVE Urine Ketones NEGATIVE Urine Blood NEGATIVE Urine Nitrite NEGATIVE Ur Leukocyte Esterase NEGATIVE Urine RBC (Auto) 1 11/10/19 08:10 WBC RBC Hgb Hct MCV MCH MCHC RDW Plt Count Seg Neutrophils % VBG pH VBG pCO2 VBG HCO3 VBG Base Excess Sodium 136.5 L Potassium 3.7 Chloride 92 L Carbon Dioxide 32 H Anion Gap 13 BUN 36 H Creatinine 1.18 Est GFR ( Amer) > 60 Glucose 159 H Lactic Acid Calcium 10.8 H Magnesium 1.9 Total Bilirubin 1.1 AST 23 Alkaline Phosphatase 45 Total Protein 6.5 Albumin 3.6 Urine Color Urine Appearance Urine pH Ur Specific [place] Urine Protein Urine Glucose (UA) Urine Ketones Urine Blood Urine Nitrite Ur Leukocyte Esterase Urine RBC (Auto) 11/09/19 11/09/19 11/09/19 16:35 16:35 16:35 Creatine Kinase 86 CK-MB (CK-2) 1.44 Troponin I 0.028 NT-Pro-B Natriuret Pep 1120 H 11/09/19 23:56 Creatine Kinase CK-MB (CK-2) Troponin I 0.019 NT-Pro-B Natriuret Pep Impressions: Chest X-Ray 11/09/19 16:47 IMPRESSION: No evidence of acute cardiopulmonary abnormality. Head CT 11/09/19 20:55 IMPRESSION: No acute intracranial process is identified. No adverse change Assessment and Plan - Diagnosis (1) Acute exacerbation of chronic obstructive pulmonary disease Is this a current diagnosis for this admission?: Yes Plan: 11/10/2019-patient admitted for acute exacerbation of chronic COPD pulse ox is 96% on 2 L this morning. Patient is receiving scheduled and as needed nebulizer treatments, oral levofloxacin. Plan is to continue the present management at this time. (2) Atrial fibrillation Qualifiers: Atrial fibrillation type: unspecified Qualified Code(s): I48.91 - Unspecified atrial fibrillation Is this a current diagnosis for this admission?: No Plan: 11/10/2019-patient has history of paroxysmal atrial fibrillation on examination this morning in sinus rhythm plan is to continue his apixaban. (3) Altered mental status Qualifiers: Altered mental status type: unspecified Qualified Code(s): R41.82 - Altered mental status, unspecified Is this a current diagnosis for this admission?: Yes Plan: 11/10/2019-patient admitted with acute metabolic encephalopathy/altered mental status may be secondary to acute respiratory failure with hypoxia. (4) Leukocytosis Qualifiers: Leukocytosis type: unspecified Qualified Code(s): D72.829 - Elevated white blood cell count, unspecified Is this a current diagnosis for this admission?: Yes Plan: 11/10/2019-patient has a persistent leukocytosis for the last 1 year. Today's WBC count is 15,800 patient is afebrile. (5) HTN (hypertension) Qualifiers: Hypertension type: essential hypertension Qualified Code(s): I10 - Essential (primary) hypertension Is this a current diagnosis for this admission?: Yes Plan: 11/10/2019-blood pressure today is 130/80. Stable. - Plan Summary Summary: Patient is admitted to the medical floor where he will receive routine supportive and symptomatic cares. Patient's respiratory failure will be treated with supplemental oxygen via nasal cannula and/or noninvasive airway pressure support devices such as BiPAP or CPAP if necessary in order to maintain an adequate oxygen saturation. An aggressive pulmonary toilet will be in place utilizing nebulized Xopenex, Atrovent and Pulmicort. Patient will be treated with oral Levaquin as part of the treatment of his acute exacerbation of COPD. CBCs, metabolic profiles, magnesium levels and further laboratory and/or radiographic investigations will be obtained as necessary. Patient will be treated with a cardiac diet. Patient's usual medications will be restarted, as appropriate, when his medication list has been verified and reconciled. Patient will receive Ativan 1 mg IV every 4 hours as needed for agitation or restlessness.
[2019-11-10] MEDS: ASPIRIN 81 MG TABLET, ENT COATED PO SCH (10:42)
[2019-11-10] MEDS: ALLOPURINOL 300 MG TABLET PO SCH (10:42)
[2019-11-10] MEDS: FENOFIBRATE NANOCRYSTALLIZED 145 MG TABLET PO SCH (10:42)
[2019-11-10] MEDS: DOCUSATE SODIUM 100 MG CAPSULE PO SCH ×2 (10:42→17:42)
[2019-11-10] MEDS: APIXABAN 2.5 MG TABLET PO SCH ×2 (10:42→17:42)
[2019-11-10] MEDS: BUSPIRONE HCL 10 MG TABLET PO SCH ×2 (10:42→22:18)
[2019-11-10] MEDS: FUROSEMIDE 40 MG TABLET PO SCH ×2 (10:43→17:42)
[2019-11-10] MEDS: DIVALPROEX SODIUM 250 MG TABLET.DR PO SCH ×2 (10:43→22:18)
[2019-11-10] MEDS: FAMOTIDINE 20 MG TABLET PO SCH ×2 (10:43→22:18)
[2019-11-10] MEDS: MAGNESIUM OXIDE 400 MG TABLET PO SCH (10:43)
[2019-11-10] MEDS: TRAMADOL HCL 50 MG TABLET PO PRN (10:55)
[2019-11-10] MEDS: TAMSULOSIN HCL 0.4 MG CAP.SR.24H PO SCH (17:42)
[2019-11-10] MEDS: ATORVASTATIN CALCIUM 10 MG TABLET PO SCH (22:18)
[2019-11-11] MEDS: IPRATROPIUM BROMIDE 0.02% NEB 0.5 MG/2.5 ML AMPUL NEB SCH ×3 (00:46→15:58)
[2019-11-11] MEDS: LEVALBUTEROL HCL NEB 1.25 MG/3 ML AMPUL NEB SCH ×3 (00:47→15:58)
[2019-11-11] MEDS ORDERED: CEFTRIAXONE 1 GM/D5W RTU 1 GM/50 ML RTUPB IV ONE (02:00)
[2019-11-11 05:39] LABS: HEMATOCRIT 33.2 % (37.9-51.0); HEMOGLOBIN 11.1 g/dL (13.5-17.0); MEAN CORPUSCULAR HEMOGLOBIN 30.5 pg (27.0-33.4); MEAN CORPUSCULAR HGB CONC 33.5 g/dL (32.0-36.0); MEAN CORPUSCULAR VOLUME 91 fl (80-97); PLATELET COUNT 317 10^3/uL (150-450); RED BLOOD COUNT 3.64 10^6/uL (4.35-5.55); RED CELL DISTRIBUTION WIDTH 14.8 % (11.5-14.0); WHITE BLOOD COUNT 17.9 10^3/uL (4.0-10.5)
[2019-11-11 06:01] LABS: ANION GAP 12 (5-19); CALCIUM 10.6 mg/dL (8.4-10.2); CARBON DIOXIDE 32 mmol/L (22-30); CHLORIDE 89 mmol/L (98-107); GLUCOSE 156 mg/dL (75-110); POTASSIUM 3.3 mmol/L (3.6-5.0)
[2019-11-11 06:20] LABS: BLOOD UREA NITROGEN 57 mg/dL (7-20)
[2019-11-11] MEDS: DILTIAZEM HCL 30 MG TABLET PO SCH ×3 (06:29→21:44)
[2019-11-11] MEDS: BUDESONIDE NEB 0.5 MG/2 ML AMPUL NEB SCH ×2 (08:43→20:23)
[2019-11-11] MEDS: FAMOTIDINE 20 MG TABLET PO SCH ×2 (09:26→21:43)
[2019-11-11] MEDS: MAGNESIUM OXIDE 400 MG TABLET PO SCH (09:26)
[2019-11-11] MEDS: FUROSEMIDE 40 MG TABLET PO SCH ×2 (09:26→17:23)
[2019-11-11] MEDS: DOCUSATE SODIUM 100 MG CAPSULE PO SCH ×2 (09:26→17:23)
[2019-11-11] MEDS: FENOFIBRATE NANOCRYSTALLIZED 145 MG TABLET PO SCH (09:27)
[2019-11-11] MEDS: DIVALPROEX SODIUM 250 MG TABLET.DR PO SCH ×2 (09:27→21:43)
[2019-11-11] MEDS: BUSPIRONE HCL 10 MG TABLET PO SCH ×2 (09:27→21:43)
[2019-11-11] MEDS: APIXABAN 2.5 MG TABLET PO SCH ×2 (09:27→17:23)
[2019-11-11] MEDS: ASPIRIN 81 MG TABLET, ENT COATED PO SCH (09:27)
[2019-11-11] MEDS: ALLOPURINOL 300 MG TABLET PO SCH (09:28)
[2019-11-11] MEDS: TRAMADOL HCL 50 MG TABLET PO PRN (09:29)
[2019-11-11] MEDS ORDERED: TAMSULOSIN HCL 0.4 MG CAP.SR.24H PO SCH (10:00)
--- NOTE | 2019-11-11 10:50 | RADIOLOGY REPORT (SQ) ---
EXAM DESCRIPTION: CT LUMBAR SPINE WITHOUT IMAGES COMPLETED DATE/TIME: 11/11/2019 10:19 am REASON FOR STUDY: low back pain after fall at home COMPARISON: AP, lateral and oblique views of the lumbar spine from 11/05/2019 P TECHNIQUE: Axial images acquired through the lumbar spine without intravenous contrast. Images revi ewed with lung, soft tissue and bone windows. Reconstructed coronal and sagittal MPR images reviewed . All images stored on PACS. All CT scanners at this facility use dose modulation, iterative reconstruction, and/or weight based d osing when appropriate to reduce radiation dose to as low as reasonably achievable (ALARA). [facility]: Dose Right [facility]: CareDose [facility]: Dose Right [facility]: Teradose 4D [facility]: Smart Closetbox RADIATION DOSE: CT Rad equipment meets quality standard of care and radiation dose reduction techniq ues were employed. CTDIvol: 31.3 mGy. DLP: 942 mGy-cm. LIMITATIONS: None. FINDINGS: SEGMENTATION: There are 5 lumbar-type vertebral bodies. ALIGNMENT: Levoconvex curvature of the lumbar spine centered at L4. VERTEBRAL BODIES: The lumbar vertebral body heights are preserved. The eroded / irregular appearance of the inferior endplate of L3, superior and inferior endplates of L4, and superior endplate of L5 c ould represent a combination of Schmorl's nodes and subchondral sclerosis. There is a chronic mild w edge compression deformity of the superior endplate of the T12 vertebral body. There is no definite acute fracture. DISCS: Evaluation of the spinal canal is limited due to the absence of intrathecal contrast. The int ervertebral disc spaces from L1-L2 to L5-S1 are narrowed. From L2-L3 to L4-L5 there are varying degr ees of moderate to severe spinal stenosis due to a combination of bulging discs, degeneration of the facet joints, and hypertrophy of the ligamentum flavum. PEDICLES, TRANSVERSE PROCESSES: No fracture or pars interarticularis defect FACETS, POSTERIOR ELEMENTS: At L4-5 and L5-S1 bilaterally there is at a minimum moderate foraminal st enosis. 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 There is no fracture. HARDWARE: None in the spine. VISUALIZED RIBS: No fractures. SOFT TISSUES: Atherosclerotic calcification of the abdominal aorta. OTHER: No other finding. IMPRESSION: 1. No definite acute osseous abnormality of the lumbar spine. The eroded/irregular appe arance of the inferior endplate of L3, superior and inferior endplates of L4, and superior endplate o f L5 could represent a combination of a Schmorl's nodes and subchondral sclerosis. 2. Chronic mild wedge compression deformity of the superior endplate of the T12 vertebral body. 3. Varying degrees of moderate to severe spinal stenosis from L2-L3 to L4-L5 due to a combination of bulging disc, degeneration of the facet joints and hypertrophy of the ligamentum flavum. TECHNICAL DOCUMENTATION: JOB ID: [id number] Quality ID # [id number]: Final reports with documentation of one or more dose reduction techniques (e.g., Au tomated exposure control, adjustment of the mA and/or kV according to patient size, use of iterative reconstruction technique) 2010 [employer]- All Rights Reserved Reading location - IP/workstation name: [email or web address]
[2019-11-11] MEDS: LIDOCAINE 5% (700 MG) TRANSDERMAL ADH..PATCH TP SCH (13:42)
--- NOTE | 2019-11-11 14:17 | PDOC PROGRESS REPORT ---
Subjective Progress Note for:: 11/11/19 Subjective:: No adverse events overnight. His only complaint today is about his back pain. He says it is his lower back. He said somebody fell on him at home 5 or 6 days ago. He said it was bothering him before he came into the hospital. He says his breathing feels fairly comfortable. No fevers. No chest pain. Reason For Visit: ACUTE RESPIRATORY FAILURE WITH HYPOXIA, Physical Exam Vital Signs: Temp Pulse Resp BP Pulse Ox 97.3 F 53 L 18 125/69 94 11/11/19 11:12 11/11/19 11:12 11/11/19 11:12 11/11/19 11:12 11/11/19 11:12 Intake & Output 11/10/19 11/11/19 11/12/19 06:59 06:59 06:59 Intake Total 1312 Balance 1312 Weight 93.5 kg 93.5 kg General appearance: PRESENT: no acute distress, cooperative, disheveled, hard of hearing, obese Respiratory exam: PRESENT: rhonchi, symmetrical, unlabored. ABSENT: accessory muscle use, chest wall tenderness, crackles, prolonged expiratory phas, tachypnea, wheezes Cardiovascular exam: PRESENT: RRR, +S1, +S2 Pulses: PRESENT: normal carotid pulses Vascular exam: PRESENT: normal capillary refill GI/Abdominal exam: PRESENT: normal bowel sounds, soft. ABSENT: distended, guarding, rebound, tenderness Extremities exam: ABSENT: clubbing, pedal edema Musculoskeletal exam: PRESENT: normal inspection. ABSENT: deformity Neurological exam: PRESENT: alert, awake, oriented to person, oriented to place Psychiatric exam: PRESENT: appropriate affect, normal mood Skin exam: PRESENT: dry, warm Results Laboratory Results: 11/11/19 05:03 11/11/19 05:03 11/11/19 11/11/19 05:03 05:03 WBC 17.9 H RBC 3.64 L Hgb 11.1 L Hct 33.2 L MCV 91 MCH 30.5 MCHC 33.5 RDW 14.8 H Plt Count 317 Sodium 133.3 L Potassium 3.3 L Chloride 89 L Carbon Dioxide 32 H Anion Gap 12 BUN 57 H D Creatinine 1.67 H Est GFR ( Amer) 47 L Glucose 156 H Calcium 10.6 H Magnesium 2.1 11/10/19 04:00 Blood Blood Culture (PCR) - Final Staphylococcus Species 11/09/19 11/09/19 11/09/19 16:35 16:35 16:35 Creatine Kinase 86 CK-MB (CK-2) 1.44 Troponin I 0.028 NT-Pro-B Natriuret Pep 1120 H 11/09/19 23:56 Creatine Kinase CK-MB (CK-2) Troponin I 0.019 NT-Pro-B Natriuret Pep Impressions: Chest X-Ray 11/09/19 16:47 IMPRESSION: No evidence of acute cardiopulmonary abnormality. Head CT 11/09/19 20:55 IMPRESSION: No acute intracranial process is identified. No adverse change Lumbar Spine CT 11/11/19 00:00 IMPRESSION: 1. No definite acute osseous abnormality of the lumbar spine. The eroded/irregular appearance of the inferior endplate of L3, superior and inferior endplates of L4, and superior endplate of L5 could represent a combination of a Schmorl's nodes and subchondral sclerosis. 2. Chronic mild wedge compression deformity of the superior endplate of the T12 vertebral body. 3. Varying degrees of moderate to severe spinal stenosis from L2-L3 to L4-L5 due to a combination of bulging disc, degeneration of the facet joints and hypertrophy of the ligamentum flavum. Assessment and Plan - Diagnosis (1) Acute encephalopathy Is this a current diagnosis for this admission?: Yes Plan: Resolved. Mental status back to baseline. (2) Acute exacerbation of chronic obstructive pulmonary disease Is this a current diagnosis for this admission?: Yes Plan: He has done very well after a round of systemic steroids. We have him on bronchodilator treatments. (3) Acute respiratory failure with hypoxia Is this a current diagnosis for this admission?: Yes Plan: Resolved. Back on room air. (4) Hyperlipidemia Is this a current diagnosis for this admission?: Yes Plan: Continue Lipitor (5) Hypertensive disorder, systemic arterial Is this a current diagnosis for this admission?: Yes Plan: Blood pressure well controlled, continue current regimen (6) Atrial fibrillation Qualifiers: Atrial fibrillation type: unspecified Qualified Code(s): I48.91 - Unspecified atrial fibrillation Is this a current diagnosis for this admission?: No Plan: On diltiazem. Currently in sinus rhythm. Continue Eliquis. (7) BPH (benign prostatic hyperplasia) Qualifiers: Lower urinary tract symptom presence: unspecified whether lower urinary tract symptoms present Qualified Code(s): N40.0 - Benign prostatic hyperplasia without lower urinary tract symptoms Is this a current diagnosis for this admission?: Yes Plan: Continue Flomax (8) Back pain Qualifiers: Back pain location: low back pain Chronicity: chronic Back pain laterality: bilateral Sciatica presence: without sciatica Qualified Code(s): M54.5 - Low back pain; G89.29 - Other chronic pain Is this a current diagnosis for this admission?: Yes Plan: We got a lumbar spine CT just to rule out fracture because he told me that someone fell on him a few days before he came into the hospital. I cannot verify that someone actually fell on him. However, we got the CT just in case. It did not show evidence of any acute process, no acute fracture, but he does have a lot of chronic issues in his lumbar spine. We will get a physical therapy evaluation to see how well he can ambulate. - Plan Summary Summary: Patient is admitted to the medical floor where he will receive routine supportive and symptomatic cares. Patient's respiratory failure will be treated with supplemental oxygen via nasal cannula and/or noninvasive airway pressure support devices such as BiPAP or CPAP if necessary in order to maintain an adequate oxygen saturation. An aggressive pulmonary toilet will be in place utilizing nebulized Xopenex, Atrovent and Pulmicort. Patient will be treated with oral Levaquin as part of the treatment of his acute exacerbation of COPD. CBCs, metabolic profiles, magnesium levels and further laboratory and/or radiographic investigations will be obtained as necessary. Patient will be treated with a cardiac diet. Patient's usual medications will be restarted, as appropriate, when his medication list has been verified and reconciled. Patient will receive Ativan 1 mg IV every 4 hours as needed for agitation or restlessness. - Time Time Spent with patient: 25-34 minutes
[2019-11-11] MEDS: TAMSULOSIN HCL 0.4 MG CAP.SR.24H PO SCH (17:23)
[2019-11-11] MEDS: CEFTRIAXONE 1 GM/D5W RTU 1 GM/50 ML RTUPB IV SCH (21:43)
[2019-11-11] MEDS: ATORVASTATIN CALCIUM 10 MG TABLET PO SCH (21:43)
[2019-11-12] MEDS: IPRATROPIUM BROMIDE 0.02% NEB 0.5 MG/2.5 ML AMPUL NEB SCH ×3 (00:59→15:58)
[2019-11-12] MEDS: LEVALBUTEROL HCL NEB 1.25 MG/3 ML AMPUL NEB SCH ×3 (00:59→15:58)
[2019-11-12] MEDS: DILTIAZEM HCL 30 MG TABLET PO SCH ×3 (05:38→22:18)
[2019-11-12 05:40] LABS: HEMATOCRIT 35.7 % (37.9-51.0); HEMOGLOBIN 11.9 g/dL (13.5-17.0); MEAN CORPUSCULAR HEMOGLOBIN 30.6 pg (27.0-33.4); MEAN CORPUSCULAR HGB CONC 33.5 g/dL (32.0-36.0); MEAN CORPUSCULAR VOLUME 91 fl (80-97); PLATELET COUNT 353 10^3/uL (150-450); RED BLOOD COUNT 3.91 10^6/uL (4.35-5.55); RED CELL DISTRIBUTION WIDTH 14.9 % (11.5-14.0); WHITE BLOOD COUNT 14.3 10^3/uL (4.0-10.5)
[2019-11-12] MEDS ORDERED: NORMAL SALINE 1000 ML 1,000 ML IV ONE (08:17)
[2019-11-12] MEDS: BUDESONIDE NEB 0.5 MG/2 ML AMPUL NEB SCH ×2 (08:21→20:47)
[2019-11-12] MEDS: ASPIRIN 81 MG TABLET, ENT COATED PO SCH (09:00)
[2019-11-12] MEDS: BUSPIRONE HCL 10 MG TABLET PO SCH ×2 (09:00→22:19)
[2019-11-12] MEDS: DOCUSATE SODIUM 100 MG CAPSULE PO SCH ×2 (09:00→17:09)
[2019-11-12] MEDS: FENOFIBRATE NANOCRYSTALLIZED 145 MG TABLET PO SCH (09:00)
[2019-11-12] MEDS: ALLOPURINOL 300 MG TABLET PO SCH (09:00)
[2019-11-12] MEDS: FAMOTIDINE 20 MG TABLET PO SCH ×2 (09:00→22:19)
[2019-11-12] MEDS: MAGNESIUM OXIDE 400 MG TABLET PO SCH (09:00)
[2019-11-12] MEDS: DIVALPROEX SODIUM 250 MG TABLET.DR PO SCH ×2 (09:01→22:19)
[2019-11-12] MEDS: APIXABAN 2.5 MG TABLET PO SCH ×2 (09:01→17:09)
[2019-11-12] MEDS: LIDOCAINE 5% (700 MG) TRANSDERMAL ADH..PATCH TP SCH (09:03)
[2019-11-12] MEDS: TRAMADOL HCL 50 MG TABLET PO PRN (10:04)
[2019-11-12] MEDS: TAMSULOSIN HCL 0.4 MG CAP.SR.24H PO SCH (17:09)
--- NOTE | 2019-11-12 17:56 | PDOC PROGRESS REPORT ---
Subjective Progress Note for:: 11/12/19 Subjective:: No adverse events overnight. Breathing has been comfortable on room air. He tells me that he went home yesterday but then he thinks something happened and so they had to bring him back here. This obviously did not occur. His appetite has been variable. He did not get out of bed with physical therapy today. Reason For Visit: ACUTE RESPIRATORY FAILURE WITH HYPOXIA, Physical Exam Vital Signs: Temp Pulse Resp BP Pulse Ox 97.7 F 69 18 129/80 H 93 11/12/19 15:11 11/12/19 16:35 11/12/19 16:35 11/12/19 15:11 11/12/19 16:35 Intake & Output 11/11/19 11/12/19 11/13/19 06:59 06:59 06:59 Intake Total 1362 1320 1000 Balance 1362 1320 1000 Weight 93.5 kg 95.1 kg General appearance: PRESENT: no acute distress, cooperative, disheveled, hard of hearing, obese Respiratory exam: PRESENT: Coarse, symmetrical, unlabored. ABSENT: accessory muscle use, chest wall tenderness, crackles, prolonged expiratory phas, tachypnea, wheezes Cardiovascular exam: PRESENT: RRR, +S1, +S2 Pulses: PRESENT: normal carotid pulses Vascular exam: PRESENT: normal capillary refill GI/Abdominal exam: PRESENT: normal bowel sounds, soft. ABSENT: distended, guarding, rebound, tenderness Extremities exam: ABSENT: clubbing, pedal edema Musculoskeletal exam: PRESENT: normal inspection. ABSENT: deformity Neurological exam: PRESENT: alert, awake, oriented to person, oriented to place Psychiatric exam: PRESENT: appropriate affect, normal mood Skin exam: PRESENT: dry, warm Results Laboratory Results: 11/12/19 04:47 11/11/19 05:03 11/12/19 04:47 WBC 14.3 H RBC 3.91 L Hgb 11.9 L Hct 35.7 L MCV 91 MCH 30.6 MCHC 33.5 RDW 14.9 H Plt Count 353 11/10/19 04:00 Blood Blood Culture (PCR) - Final Staphylococcus Species 11/10/19 04:00 Blood Blood Culture - Final Staphylococcus Haemolyticus 11/09/19 21:28 Catheterized Urine Urine Culture - Final NO GROWTH 2 DAYS 11/09/19 11/09/19 11/09/19 16:35 16:35 16:35 Creatine Kinase 86 CK-MB (CK-2) 1.44 Troponin I 0.028 NT-Pro-B Natriuret Pep 1120 H 11/09/19 23:56 Creatine Kinase CK-MB (CK-2) Troponin I 0.019 NT-Pro-B Natriuret Pep Impressions: Chest X-Ray 11/09/19 16:47 IMPRESSION: No evidence of acute cardiopulmonary abnormality. Head CT 11/09/19 20:55 IMPRESSION: No acute intracranial process is identified. No adverse change Lumbar Spine CT 11/11/19 00:00 IMPRESSION: 1. No definite acute osseous abnormality of the lumbar spine. The eroded/irregular appearance of the inferior endplate of L3, superior and inferior endplates of L4, and superior endplate of L5 could represent a combination of a Schmorl's nodes and subchondral sclerosis. 2. Chronic mild wedge compression deformity of the superior endplate of the T12 vertebral body. 3. Varying degrees of moderate to severe spinal stenosis from L2-L3 to L4-L5 due to a combination of bulging disc, degeneration of the facet joints and hyper trophy of the ligamentum flavum. Assessment and Plan - Diagnosis (1) Acute encephalopathy Is this a current diagnosis for this admission?: Yes Plan: Resolved. Mental status back to baseline. I do not think he is encephalopathic, I think he is cognitively impaired. (2) Acute exacerbation of chronic obstructive pulmonary disease Is this a current diagnosis for this admission?: Yes Plan: He has done very well after a round of systemic steroids. We have him on bronchodilator treatments. He is now on room air. (3) Acute respiratory failure with hypoxia Is this a current diagnosis for this admission?: Yes Plan: Resolved (4) Hyperlipidemia Is this a current diagnosis for this admission?: Yes Plan: Continue Lipitor (5) Hypertensive disorder, systemic arterial Is this a current diagnosis for this admission?: Yes Plan: Blood pressure well controlled, continue current regimen (6) Atrial fibrillation Qualifiers: Atrial fibrillation type: unspecified Qualified Code(s): I48.91 - Unspecified atrial fibrillation Is this a current diagnosis for this admission?: No Plan: On diltiazem. Currently in sinus rhythm. Continue Eliquis. (7) BPH (benign prostatic hyperplasia) Qualifiers: Lower urinary tract symptom presence: unspecified whether lower urinary tract symptoms present Qualified Code(s): N40.0 - Benign prostatic hyperplasia without lower urinary tract symptoms Is this a current diagnosis for this admission?: Yes Plan: Continue Flomax (8) Back pain Qualifiers: Back pain location: low back pain Chronicity: chronic Back pain laterality: bilateral Sciatica presence: without sciatica Qualified Code(s): M54.5 - Low back pain; G89.29 - Other chronic pain Is this a current diagnosis for this admission?: Yes Plan: CT of the lumbar spine shows numerous chronic issues but nothing acute such as a fracture. Physical therapy examination was ordered but it did not look like he wanted to get out of bed with physical therapy today. We will have him try again tomorrow. I encouraged him to try to give a good effort and participate in therapy. - Plan Summary Summary: Patient is admitted to the medical floor where he will receive routine supportive and symptomatic cares. Patient's respiratory failure will be treated with supplemental oxygen via nasal cannula and/or noninvasive airway pressure support devices such as BiPAP or CPAP if necessary in order to maintain an adequate oxygen saturation. An aggressive pulmonary toilet will be in place utilizing nebulized Xopenex, Atrovent and Pulmicort. Patient will be treated with oral Levaquin as part of the treatment of his acute exacerbation of COPD. CBCs, metabolic profiles, magnesium levels and further laboratory and/or radiographic investigations will be obtained as necessary. Patient will be treated with a cardiac diet. Patient's usual medications will be restarted, as appropriate, when his medication list has been verified and reconciled. Patient will receive Ativan 1 mg IV every 4 hours as needed for agitation or restless ness. - Time Time Spent with patient: 15-24 minutes
[2019-11-12] MEDS: CEFTRIAXONE 1 GM/D5W RTU 1 GM/50 ML RTUPB IV SCH (22:18)
[2019-11-12] MEDS: ATORVASTATIN CALCIUM 10 MG TABLET PO SCH (22:19)
[2019-11-13] MEDS: LEVALBUTEROL HCL NEB 1.25 MG/3 ML AMPUL NEB SCH ×3 (00:03→16:11)
[2019-11-13] MEDS: IPRATROPIUM BROMIDE 0.02% NEB 0.5 MG/2.5 ML AMPUL NEB SCH ×3 (00:03→16:11)
[2019-11-13] MEDS: DILTIAZEM HCL 30 MG TABLET PO SCH ×3 (05:24→21:03)
[2019-11-13 06:23] LABS: MEAN CORPUSCULAR HEMOGLOBIN 30.2 pg (27.0-33.4); MEAN CORPUSCULAR HGB CONC 33.2 g/dL (32.0-36.0); MEAN CORPUSCULAR VOLUME 91 fl (80-97); PLATELET COUNT 328 10^3/uL (150-450); RED BLOOD COUNT 3.96 10^6/uL (4.35-5.55); RED CELL DISTRIBUTION WIDTH 14.8 % (11.5-14.0); WHITE BLOOD COUNT 14.4 10^3/uL (4.0-10.5)
[2019-11-13] MEDS: BUDESONIDE NEB 0.5 MG/2 ML AMPUL NEB SCH (08:09)
[2019-11-13 08:45] LABS: ANION GAP 13 (5-19); BLOOD UREA NITROGEN 51 mg/dL (7-20); CALCIUM 10.3 mg/dL (8.4-10.2); CARBON DIOXIDE 31 mmol/L (22-30); CHLORIDE 88 mmol/L (98-107); GLUCOSE 122 mg/dL (75-110); POTASSIUM 3.3 mmol/L (3.6-5.0)
[2019-11-13] MEDS: DIVALPROEX SODIUM 250 MG TABLET.DR PO SCH ×2 (09:49→21:04)
[2019-11-13] MEDS: DOCUSATE SODIUM 100 MG CAPSULE PO SCH ×2 (09:49→17:06)
[2019-11-13] MEDS: BUSPIRONE HCL 10 MG TABLET PO SCH ×2 (09:49→21:04)
[2019-11-13] MEDS: ASPIRIN 81 MG TABLET, ENT COATED PO SCH (09:49)
[2019-11-13] MEDS: MAGNESIUM OXIDE 400 MG TABLET PO SCH (09:49)
[2019-11-13] MEDS: TRAMADOL HCL 50 MG TABLET PO PRN (09:49)
[2019-11-13] MEDS: FAMOTIDINE 20 MG TABLET PO SCH ×2 (09:49→21:03)
[2019-11-13] MEDS: FENOFIBRATE NANOCRYSTALLIZED 145 MG TABLET PO SCH (09:50)
[2019-11-13] MEDS: ALLOPURINOL 300 MG TABLET PO SCH (09:50)
[2019-11-13] MEDS: LIDOCAINE 5% (700 MG) TRANSDERMAL ADH..PATCH TP SCH (09:50)
[2019-11-13] MEDS: APIXABAN 2.5 MG TABLET PO SCH ×2 (09:50→17:06)
[2019-11-13] MEDS: POTASSIUM CHLORIDE 10 MEQ TABLET.ER PO SCH (10:50)
--- NOTE | 2019-11-13 16:19 | PDOC PROGRESS REPORT ---
Subjective Progress Note for:: 11/13/19 Subjective:: No adverse events overnight. Breathing has been comfortable on room air. He was able to get up and walk a little bit with physical therapy. It seems like mostly he needed help getting up out of the bed but once he got up he was able to walk about 50 feet with assistance. Reason For Visit: ACUTE RESPIRATORY FAILURE WITH HYPOXIA, Physical Exam Vital Signs: Temp Pulse Resp BP Pulse Ox 97.9 F 90 18 129/66 H 93 11/13/19 14:48 11/13/19 16:13 11/13/19 16:13 11/13/19 14:48 11/13/19 16:13 Intake & Output 11/12/19 11/13/19 11/14/19 06:59 06:59 06:59 Intake Total 1320 2910 120 Balance 1320 2910 120 Weight 95.1 kg 95.1 kg General appearance: PRESENT: no acute distress, cooperative, disheveled, hard of hearing, obese Respiratory exam: PRESENT: Coarse, symmetrical, unlabored. ABSENT: accessory muscle use, chest wall tenderness, crackles, prolonged expiratory phas, tachypnea, wheezes Cardiovascular exam: PRESENT: RRR, +S1, +S2 Pulses: PRESENT: normal carotid pulses Vascular exam: PRESENT: normal capillary refill GI/Abdominal exam: PRESENT: normal bowel sounds, soft. ABSENT: distended, guarding, rebound, tenderness Extremities exam: ABSENT: clubbing, pedal edema Musculoskeletal exam: PRESENT: normal inspection. ABSENT: deformity Neurological exam: PRESENT: alert, awake, oriented to person, oriented to place Psychiatric exam: PRESENT: appropriate affect, normal mood Skin exam: PRESENT: dry, warm Results Laboratory Results: 11/13/19 05:27 11/13/19 05:27 11/13/19 11/13/19 05:27 05:27 WBC 14.4 H RBC 3.96 L Hgb 12.0 L Hct 36.0 L MCV 91 MCH 30.2 MCHC 33.2 RDW 14.8 H Plt Count 328 Sodium 132.1 L Potassium 3.3 L Chloride 88 L Carbon Dioxide 31 H Anion Gap 13 BUN 51 H Creatinine 1.10 Est GFR ( Amer) > 60 Glucose 122 H Calcium 10.3 H 11/10/19 04:00 Blood Blood Culture (PCR) - Final Staphylococcus Species 11/10/19 04:00 Blood Blood Culture - Final Staphylococcus Haemolyticus 11/09/19 11/09/19 11/09/19 16:35 16:35 16:35 Creatine Kinase 86 CK-MB (CK-2) 1.44 Troponin I 0.028 NT-Pro-B Natriuret Pep 1120 H 11/09/19 23:56 Creatine Kinase CK-MB (CK-2) Troponin I 0.019 NT-Pro-B Natriuret Pep Impressions: Chest X-Ray 11/09/19 16:47 IMPRESSION: No evidence of acute cardiopulmonary abnormality. Head CT 11/09/19 20:55 IMPRESSION: No acute intracranial process is identified. No adverse change Lumbar Spine CT 11/11/19 00:00 IMPRESSION: 1. No definite acute osseous abnormality of the lumbar spine. The eroded/irregular appearance of the inferior endplate of L3, superior and inferio r endplates of L4, and superior endplate of L5 could represent a combination of a Schmorl's nodes and subchondral sclerosis. 2. Chronic mild wedge compression deformity of the superior endplate of the T12 vertebral body. 3. Varying degrees of moderate to severe spinal stenosis from L2-L3 to L4-L5 d ue to a combination of bulging disc, degeneration of the facet joints and hypertrophy of the ligamentum flavum. Assessment and Plan - Diagnosis (1) Acute encephalopathy Is this a current diagnosis for this admission?: Yes Plan: Resolved. Mental status back to baseline. I do not think he is encephalopathic, I think he is cognitively impaired. (2) Acute exacerbation of chronic obstructive pulmonary disease Is this a current diagnosis for this admission?: Yes Plan: He has done very well after a round of systemic steroids. We have him on bronchodilator treatments. He is now on room air. (3) Acute respiratory failure with hypoxia Is this a current diagnosis for this admission?: Yes Plan: Resolved (4) Hyperlipidemia Is this a current diagnosis for this admission?: Yes Plan: Continue Lipitor (5) Hypertensive disorder, systemic arterial Is this a current diagnosis for this admission?: Yes Plan: Blood pressure well controlled, continue current regimen (6) Atrial fibrillation Qualifiers: Atrial fibrillation type: unspecified Qualified Code(s): I48.91 - Unspecified atrial fibrillation Is this a current diagnosis for this admission?: No Plan: On diltiazem. Currently in sinus rhythm. Continue Eliquis. (7) BPH (benign prostatic hyperplasia) Qualifiers: Lower urinary tract symptom presence: unspecified whether lower urinary tract symptoms present Qualified Code(s): N40.0 - Benign prostatic hyperplasia without lower urinary tract symptoms Is this a current diagnosis for this admission?: Yes Plan: Continue Flomax (8) Back pain Qualifiers: Back pain location: low back pain Chronicity: chronic Back pain laterality: bilateral Sciatica presence: without sciatica Qualified Code(s): M54.5 - Low back pain; G89.29 - Other chronic pain Is this a current diagnosis for this admission?: Yes Plan: No fracture seen on lumbar CT, but he did have a lot of chronic problems. I talked to his son for a while this morning and discussed the possibility of halfway facility placement for rehab. His son wants him to go to [facility]. Case management was consulted. He has a bed at [facility] and will plan on sending him there in the morning. - Plan Summary Summary: Patient is admitted to the medical floor where he will receive routine supportive and symptomatic cares. Patient's respiratory failure will be treated with supplemental oxygen via nasal cannula and/or noninvasive airway pressure [place] p[place] devices such as BiPAP or CPAP if necessary in order to maintain an adequate oxygen saturation. An aggressive pulmonary toilet will be in place utilizing nebulized Xopenex, Atrovent and Pulmicort. Patient will be treated with oral Levaquin as part of the treatment of his acute exacerbation of COPD. CBCs, metabolic profiles, magnesium levels and further laboratory and/or radiographic investigations will be obtained as necessary. Patient will be treated with a cardiac diet. Patient's usual medications will be restarted, as appropriate, when his medication list has been verified and reconciled. Patient will receive Ativan 1 mg IV every 4 hours as needed for agitation or restlessness. - Time Time Spent with patient: 15-24 minutes
[2019-11-13] MEDS: TAMSULOSIN HCL 0.4 MG CAP.SR.24H PO SCH (17:06)
[2019-11-13] MEDS: ATORVASTATIN CALCIUM 10 MG TABLET PO SCH (21:04)
[2019-11-13] MEDS: CEFTRIAXONE 1 GM/D5W RTU 1 GM/50 ML RTUPB IV SCH (21:04)
[2019-11-13] MEDS ORDERED: PHARMACY COMMUNICATION ORDER MC SCH (22:00)
[2019-11-14] MEDS: IPRATROPIUM BROMIDE 0.02% NEB 0.5 MG/2.5 ML AMPUL NEB SCH ×3 (00:03→15:59)
[2019-11-14] MEDS: LEVALBUTEROL HCL NEB 1.25 MG/3 ML AMPUL NEB SCH ×3 (00:03→15:59)
[2019-11-14] MEDS: DILTIAZEM HCL 30 MG TABLET PO SCH ×2 (05:43→13:47)
[2019-11-14] MEDS: TRAMADOL HCL 50 MG TABLET PO PRN ×2 (05:44→15:37)
[2019-11-14] MEDS: ACETAMINOPHEN 325 MG TABLET PO PRN (09:11)
[2019-11-14] MEDS: FAMOTIDINE 20 MG TABLET PO SCH (09:12)
[2019-11-14] MEDS: APIXABAN 2.5 MG TABLET PO SCH (09:12)
[2019-11-14] MEDS: LIDOCAINE 5% (700 MG) TRANSDERMAL ADH..PATCH TP SCH (09:12)
[2019-11-14] MEDS: ASPIRIN 81 MG TABLET, ENT COATED PO SCH (09:12)
[2019-11-14] MEDS: DOCUSATE SODIUM 100 MG CAPSULE PO SCH (09:12)
[2019-11-14] MEDS: DIVALPROEX SODIUM 250 MG TABLET.DR PO SCH (09:12)
[2019-11-14] MEDS: MAGNESIUM OXIDE 400 MG TABLET PO SCH (09:12)
[2019-11-14] MEDS: POTASSIUM CHLORIDE 10 MEQ TABLET.ER PO SCH (09:13)
[2019-11-14] MEDS: ALLOPURINOL 300 MG TABLET PO SCH (09:13)
[2019-11-14] MEDS: FENOFIBRATE NANOCRYSTALLIZED 145 MG TABLET PO SCH (09:13)
[2019-11-14] MEDS: BUSPIRONE HCL 10 MG TABLET PO SCH (09:17)
--- NOTE | 2019-11-14 14:08 | PDOC TRANSFER SUMMARY ---
Impression - Admit/DC Date/PCP Admission Date/Primary Care Provider: 11/10/19 02:38 RANDA AGUIRRE MD Discharge Date: 11/14/19 - Discharge Diagnosis (1) Acute encephalopathy Is this a current diagnosis for this admission?: Yes (2) Acute exacerbation of chronic obstructive pulmonary disease Is this a current diagnosis for this admission?: Yes (3) Acute respiratory failure with hypoxia Is this a current diagnosis for this admission?: Yes (4) Hyperlipidemia Is this a current diagnosis for this admission?: Yes (5) Hypertensive disorder, systemic arterial Is this a current diagnosis for this admission?: Yes (6) Atrial fibrillation Is this a current diagnosis for this admission?: Yes (7) BPH (benign prostatic hyperplasia) Is this a current diagnosis for this admission?: Yes (8) Back pain Is this a current diagnosis for this admission?: Yes - Assessment Summary: Patient is admitted to the medical floor where he will receive routine supportive and symptomatic cares. Patient's respiratory failure will be treated with supplemental oxygen via nasal cannula and/or noninvasive airway pressure support devices such as BiPAP or CPAP if necessary in order to maintain an adequate oxygen saturation. An aggressive pulmonary toilet will be in place utilizing nebulized Xopenex, Atrovent and Pulmicort. Patient will be treated with oral Levaquin as part of the treatment of his acute exacerbation of COPD. CBCs, metabolic profiles, magnesium levels and further laboratory and/or radiographic investigations will be obtained as necessary. Patient will be treated with a cardiac diet. Patient's usual medications will be restarted, as appropriate, when his medication list has been verified and reconciled. Patient will receive Ativan 1 mg IV every 4 hours as needed for agitation or restlessness. - Additional Information Resuscitation Status: Full Code Discharge Diet: Cardiac Discharge Activity: Slowly Increase Activity, Supervised Activity Referrals: [facility] [Outside] Prescriptions: Tramadol HCl [Ultram 50 mg Tablet] 50 mg PO Q8HP PRN #10 PRN Reason: For Back Pain Home Medications: Tamsulosin HCl 0.4 mg PO DAILY 10/22/12 Lidocaine [Lidoderm 5% (700 mg) Transdermal Patch] 1 patch TP DAILY #30 adh..patch 11/05/19 Atorvastatin Calcium [Lipitor 10 mg Tablet] 10 mg PO QHS 11/10/19 Buspirone HCl 5 mg PO Q12 11/10/19 Divalproex Sodium 250 mg PO Q12 11/10/19 Famotidine [Pepcid 20 mg Tablet] 20 mg PO Q12 11/10/19 Fenofibrate Nanocrystallized [Fenofibrate] 145 mg PO DAILY 11/10/19 Allopurinol [Zyloprim 300 mg Tablet] 300 mg PO DAILY tablet 11/14/19 Apixaban [Eliquis 2.5 mg Tablet] 2.5 mg PO BID tablet 11/14/19 Aspirin [Ecotrin 81 mg EC Tablet] 81 mg PO DAILY tabec 11/14/19 Diltiazem HCl [Cardizem 30 mg Tablet] 30 mg PO Q8 tablet 11/14/19 Tramadol HCl [Ultram 50 mg Tablet] 50 mg PO Q8HP PRN #10 11/14/19 History of Present Illiness History of Present Illness: JEFFREY GORDILLO is a 89 year old male who presented to the emergency room from home via EMS for dyspnea. Patient is awake and alert but is confused and unable to provide reliable historical information. His family indicated that he is developed worsening dyspnea over the last few days and has become increasingly confused as his respiratory status worsened. In the emergency room the patient was found to have a chest x-ray which revealed no acute changes. His BNP was 1120 (questionably significant elevation for age). He was also noted to have a white blood count of 15,400 but his white blood count has been mildly to moderately elevated on an essentially continuous basis for the last year. He was noted to have acute respiratory failure with hypoxia requiring supplemental oxygen in order to maintain an an adequate O2 saturation. He was subsequently admitted to the hospital for further evaluation and treatment. Hospital Course Hospital Course: His breathing improved rather quickly and he did not have to have a prolonged course of steroids. We were able to treating with nebulizer treatments and supplemental O2. After couple of days he was weaned off of oxygen altogether. Once his breathing was back to baseline, he was complaining more of his back pain and inability to walk anything else. He does have some baseline cognitive impairment and so was not able to provide a reliable history. In light of this, we got a CT scan of his lumbar spine just to make sure he did not have any acute process. He does have a lot of chronic problems in his lumbar spine, but there was no evidence of any fracture. It seemed like most of his problems came as a result of pain when he was trying to transfer. Once he got up on his feet he seemed to do a little bit better but he had a lot of pain when he tried to transfer from laying in the bed to standing up. Physical therapy [facility] for rehab. I discussed the matter with his son who wanted him sent to [facility]. A bed was obtained and he was transferred in stable condition. Physical Exam Vital Signs: Temp Pulse Resp BP Pulse Ox 97.2 F 89 24 H 137/76 H 92 11/14/19 11:36 11/14/19 11:36 11/14/19 11:36 11/14/19 11:36 11/14/19 11:36 Intake & Output 11/13/19 11/14/19 11/15/19 06:59 06:59 06:59 Intake Total 2910 1310 480 Balance 2910 1310 480 Weight 95.1 kg 93.1 kg General appearance: PRESENT: no acute distress, cooperative, disheveled, hard of hearing, obese Respiratory exam: PRESENT: Coarse, symmetrical, unlabored. ABSENT: accessory m uscle use, chest wall tenderness, crackles, prolonged expiratory phas, tachypnea, wheezes Cardiovascular exam: PRESENT: RRR, +S1, +S2 Pulses: PRESENT: normal carotid pulses Vascular exam: PRESENT: normal capillary refill GI/Abdominal exam: PRESENT: normal bowel sounds, soft. ABSENT: distended, guar ding, rebound, tenderness Extremities exam: ABSENT: clubbing, pedal edema Musculoskeletal exam: PRESENT: normal inspection. ABSENT: deformity Neurological exam: PRESENT: alert, awake, oriented to person, oriented to place Psychiatric exam: PRESENT: appropriate affect, normal mood Skin exam: PRESENT: dry, warm Results Laboratory Results: WBC 14.4 10^3/uL (4.0-10.5) H 11/13/19 05:27 RBC 3.96 10^6/uL (4.35-5.55) L 11/13/19 05:27 Hgb 12.0 g/dL (13.5-17.0) L 11/13/19 05:27 Hct 36.0 % (37.9-51.0) L 11/13/19 05:27 MCV 91 fl (80-97) 11/13/19 05:27 MCH 30.2 pg (27.0-33.4) 11/13/19 05:27 MCHC 33.2 g/dL (32.0-36.0) 11/13/19 05:27 RDW 14.8 % (11.5-14.0) H 11/13/19 05:27 Plt Count 328 10^3/uL (150-450) 11/13/19 05:27 Lymph % (Auto) 5.7 % (13-45) L 11/10/19 08:10 [place] % (Auto) 3.9 % (3-13) 11/10/19 08:10 Eos % (Auto) 0.2 % (0-6) 11/10/19 08:10 Baso % (Auto) 0.6 % (0-2) 11/10/19 08:10 Absolute Neuts (auto) 14.2 10^3/uL (1.7-8.2) H 11/10/19 08:10 Absolute Lymphs (auto) 0.9 10^3/uL (0.5-4.7) 11/10/19 08:10 Absolute Monos (auto) 0.6 10^3/uL (0.1-1.4) 11/10/19 08:10 Absolute Eos (auto) 0.0 10^3/uL (0.0-0.6) 11/10/19 08:10 Absolute Basos (auto) 0.1 10^3/uL (0.0-0.2) 11/10/19 08:10 Seg Neutrophils % 89.6 % (42-78) H 11/10/19 08:10 VBG pH 7.44 (7.30-7.42) H 11/09/19 21:28 VBG pCO2 42.4 mmHg (35-63) 11/09/19 21:28 VBG HCO3 28.4 mmol/L (20-32) 11/09/19 21:28 VBG Base Excess 3.9 mmol/L 11/09/19 21:28 Sodium 132.1 mmol/L (137-145) L 11/13/19 05:27 Potassium 3.3 mmol/L (3.6-5.0) L 11/13/19 05:27 Chloride 88 mmol/L (98-107) L 11/13/19 05:27 Carbon Dioxide 31 mmol/L (22-30) H 11/13/19 05:27 Anion Gap 13 (5-19) 11/13/19 05:27 BUN 51 mg/dL (7-20) H 11/13/19 05:27 Creatinine 1.10 mg/dL (0.52-1.25) 11/13/19 05:27 Est GFR ( Amer) > 60 (>60) 11/13/19 05:27 Est GFR (MDRD) Non-Af > 60 (>60) 11/13/19 05:27 Glucose 122 mg/dL (75-110) H 11/13/19 05:27 Lactic Acid 1.1 mmol/L (0.7-2.1) 11/10/19 00:27 Calcium 10.3 mg/dL (8.4-10.2) H 11/13/19 05:27 Magnesium 2.1 mg/dL (1.6-2.3) 11/11/19 05:03 Total Bilirubin 1.1 mg/dL (0.2-1.3) 11/10/19 08:10 Direct Bilirubin 0.4 mg/dL (0.0-0.4) 11/10/19 08:10 Neonat Total Bilirubin Not Reportable 11/10/19 08:10 Neonat Direct Bilirubin Not Reportable 11/10/19 08:10 Neonat Indirect Bili Not Reportable 11/10/19 08:10 AST 23 U/L (17-59) 11/10/19 08:10 ALT 17 U/L (<50) 11/10/19 08:10 Alkaline Phosphatase 45 U/L (38-126) 11/10/19 08:10 Creatine Kinase 86 U/L (55-170) 11/09/19 16:35 CK-MB (CK-2) 1.44 ng/mL (<4.55) 11/09/19 16:35 Troponin I 0.019 ng/mL 11/09/19 23:56 NT-Pro-B Natriuret Pep 1120 pg/mL (<450) H 11/09/19 16:35 Total Protein 6.5 g/dL (6.3-8.2) 11/10/19 08:10 Albumin 3.6 g/dL (3.5-5.0) 11/10/19 08:10 Urine Color YELLOW 11/09/19 21:28 Urine Appearance CLEAR 11/09/19 21:28 Urine pH 7.0 (5.0-9.0) 11/09/19 21:28 Ur Specific [place] 1.010 11/09/19 21:28 Urine Protein NEGATIVE mg/dL (NEGATIVE) 11/09/19 21:28 Urine Glucose (UA) NEGATIVE mg/dL (NEGATIVE) 11/09/19 21: Urine Ketones NEGATIVE mg/dL (NEGATIVE) 11/09/19 21:28 Urine Blood NEGATIVE (NEGATIVE) 11/09/19 21: Urine Nitrite NEGATIVE (NEGATIVE) 11/09/19 21: Urine Bilirubin NEGATIVE (NEGATIVE) 11/09/19 21: Urine Urobilinogen NEGATIVE mg/dL (<2.0) 11/09/19 21: Ur Leukocyte Esterase NEGATIVE (NEGATIVE) 11/09/19 21:28 Urine RBC (Auto) 1 /HPF 11/09/19 21: U Hyaline Cast (Auto) 7 /LPF 11/09/19 21:28 Urine Mucus (Auto) RARE /LPF 11/09/19 21:28 Urine Ascorbic Acid NEGATIVE (NEGATIVE) 11/09/19 21:28 Valproic Acid 27.5 ug/mL (50.0-120.0) L 11/09/19 16:35 11/09/19 11/09/19 11/09/19 16:35 16:35 23:56 CK-MB (CK-2) 1.44 Troponin I 0.028 0.019 NT-Pro-B Natriuret Pep 1120 H Impressions: Chest X-Ray 11/09/19 16:47 IMPRESSION: No evidence of acute cardiopulmonary abnormality. Head CT 11/09/19 20:55 IMPRESSION: No acute intracranial process is identified. No adverse change Lumbar Spine CT 11/11/19 00:00 IMPRESSION: 1. No definite acute osseous abnormality of the lumbar spine. The eroded/irregular appearance of the inferior endplate of L3, superior and inferior endplates of L4, and superior endplate of L5 could represent a combination of a Schmorl's nodes and subchondral sclerosis. 2. Chronic mild wedge compression deformity of the superior endplate of the T12 vertebral body. 3. Varying degrees of moderate to severe spinal stenosis from L2-L3 to L4-L5 due to a combination of bulging disc, degeneration of the facet joints and hypertrophy of the ligamentum flavum. Plan Time Spent: Greater than 30 Minutes Stroke Is this a Stroke Patient?: No Acute Heart Failure - Is this a Heart Failure Patient?: No
[2019-11-14 16:30] VITALS: BP 118/58
== END 2019-11-14 16:40 | DRG 189 ==
LOC: ER 16:28 → EH 11-10 02:38 → 4N 11-10 04:35
PROVIDERS: ADMIT Emergency Medicine; ATTEND Family Medicine
DX: J96.01 Acute respiratory failure with hypoxia (principal); I50.21 Acute systolic (congestive) heart failure; J44.1 Chronic obstructive pulmonary disease with (acute) exacerbation; G93.40 Encephalopathy, unspecified; I16.1 Hypertensive emergency; E78.5 Hyperlipidemia, unspecified; N40.0 Benign prostatic hyperplasia without lower urinary tract symptoms; H91.8X9 Other specified hearing loss, unspecified ear; E66.9 Obesity, unspecified; M10.9 Gout, unspecified; I25.10 Atherosclerotic heart disease of native coronary artery without angina pectoris; Z96.652 Presence of left artificial knee joint; I48.0 Paroxysmal atrial fibrillation; D72.829 Elevated white blood cell count, unspecified; M54.5 Low back pain; G89.29 Other chronic pain; I11.0 Hypertensive heart disease with heart failure; Z79.899 Other long term (current) drug therapy; Z79.01 Long term (current) use of anticoagulants; Z87.891 Personal history of nicotine dependence; Z82.49 Family history of ischemic heart disease and other diseases of the circulatory system; Z79.82 Long term (current) use of aspirin; Z68.29 Body mass index [BMI] 29.0-29.9, adult
CPT/HCPCS: 36415; 70450; 71045; 72131; 80048; 80053; 80164; 81001; 82550; 82553; 82803; 83605; 83735; 83880; 84484; 85025; 85027; 87040; 87077; 87086; 87150; 87186; 93005; 93010; 99285; J0696; J2310; J2920; J3490; J7030; J7614